=== PATIENT | female | born 1965 | race Caucasian/White ===

== ENCOUNTER → 2018-05-06 13:36 | Outpatient (REF) | payer SELFPAY | LOC: OM 13:36 | PROVIDERS: PCP Family Medicine; Visit Provider Nurse Practitioner Family | DX: Z11.1 Encounter for screening for respiratory tuberculosis (principal) ==

== ENCOUNTER 2018-05-08 14:29 | Outpatient (REF) | payer SELFPAY | END 2018-05-08 14:30 | LOC: OM 14:29 | PROVIDERS: PCP Family Medicine; Visit Provider Nurse Practitioner Family | DX: Z11.1 Encounter for screening for respiratory tuberculosis (principal) ==

== ENCOUNTER 2018-06-03 15:47 | Outpatient (REF) | payer OTHER, SELFPAY ==
--- NOTE | 2018-06-03 15:09 | PAPFT_PTH ---
PATIENT: Heide Dsouza LOC: [facility] U#:[id number] AGE/SX: 53/F ROOM: RE06/03/[address]: Lg Gamble MD : [id number] BED: DIS: 06/03/2018 SPEC #: [id number] RECD: 06/03/18 18:10 STATUS: MARLY REQ #: [id number] MARSHAL: 06/03/18 15:[address]: Lg Gamble [facility] Cytology RECD BY: Marleny Angela Tissues: 1 - CX/ENDOCX FOR PAP SMEARS Procedures: PAP THIN PREP/UVM Screening HPV DNA PROBE Comments: [id number]
== END 2018-06-03 16:07 ==
LOC: LBN 15:47
PROVIDERS: Visit Provider Family Medicine
DX: Z12.4 Encounter for screening for malignant neoplasm of cervix (principal); Z11.51 Encounter for screening for human papillomavirus (HPV)
CPT/HCPCS: 88142; 87624

== ENCOUNTER 2018-10-27 11:52 | Outpatient (CLI) | payer OTHER, SELFPAY ==
[2018-10-27 13:45] LABS: Abs Immature Grans 0.02 k/cumm (0.0-0.09); Absolute Basophil Count 0.03 k/cumm (0.0-0.2); Absolute Eosinophil Count 0.26 k/cumm (0.0-0.7); Absolute Lymphocyte Count 1.21 k/cumm (1.2-3.4); Absolute Monocyte Count 0.49 k/cumm (0.11-0.7); Absolute Neutrophil Count 4.95 k/cumm (1.2-6.7); Basophils % 0.4; Eosinophils % 3.7; HCT 45.4 % (36.0-46.0); HGB 14.8 g/dL (12.0-15.5); Immature Grans % 0.3; Lymphocytes % 17.4; Mean Corp. HGB Concentration 32.6 g/dL (32.0-36.0); Mean Corpuscular Hemoglobin 31.4 pg (27.0-33.0); Mean Corpuscular Volume 96.2 fL (80-95); Mean Platelet Volume 9.2 fL (8.0-11.0); Neutrophils % 71.2; Platelet Count 246 x1000/uL (130-400); RBC 4.72 m/cumm (4.00-5.20); RBC Distribution Width 14.5 % (11.7-14.6); White Blood Cell Count 6.96 k/cumm (4.4-10.8)
[2018-10-27 14:03] LABS: ALT 19 U/L (12-78); AST 13 U/L (15-37); Albumin 3.3 g/dL (3.4-5.0); Alkaline Phosphatase 100 U/L (46-116); Anion Gap 6.6 mmol/L (3-11); BUN 11 mg/dL (7-18); Bilirubin, Total 0.2 mg/dL (0.2-1.0); CO2 31.4 mmol/L (21.0-32.0); CREATININE 0.86 mg/dL (0.55-1.02); Calcium 8.6 mg/dL (8.5-10.1); Chloride 104 mmol/L (98-107); Glucose 99 mg/dL (70-100); Potassium 3.6 mmol/L (3.5-5.1); Sodium 142 mmol/L (136-145); Total Protein 7.5 g/dL (6.4-8.2)
== END 2018-10-27 12:12 ==
PROVIDERS: PCP Family Medicine; Visit Provider Nurse Practitioner Family
DX: C50.412 Malignant neoplasm of upper-outer quadrant of left female breast (principal); Z17.0 Estrogen receptor positive status [ER+]
CPT/HCPCS: 36415; 80053; 85025

== ENCOUNTER → 2019-09-30 01:19 | Outpatient (CLI) | payer SELFPAY ==
--- NOTE | 2019-09-30 17:23 | DI.DEXA_ITS ---
EXAM: XR DEXA BONE DENSITY W/WO CIARAN INDICATION: MALIGNANT NEOPLASM OF LT BREAST C50.912 Z17.0, ON AROMATASE INHIBITOR,? status COMPARISON: LEFT HUMERUS from 12/28/2013 RENAL COLIC WO CONTRAST from 08/19/2017 TECHNIQUE: 2D digital imaging was performed. FINDINGS: Lateral spine shows unchanged compression deformity of T11 and T12. Evaluation of the left hip shows a total T-score of -1.3 and a Z-score of -0.7. This is consistent w ith osteopenia and an increased fracture risk. Evaluation of the lumbar spine shows a total T-score of -2.8 and a Z-score of -1.8. This is consiste nt with osteoporosis and a high fracture risk. IMPRESSION: Osteoporosis in the lumbar spine.
== END ==
PROVIDERS: PCP Family Medicine; Visit Provider Nurse Practitioner Family
DX: M81.0 Age-related osteoporosis without current pathological fracture (principal); M85.88 Other specified disorders of bone density and structure, other site; C50.919 Malignant neoplasm of unspecified site of unspecified female breast; Z17.0 Estrogen receptor positive status [ER+]; Z79.899 Other long term (current) drug therapy
CPT/HCPCS: 77080

== ENCOUNTER 2021-06-01 10:27 | Emergency (ER) | payer OTHER, SELFPAY ==
--- NOTE | 2021-06-01 10:36 | ED.GENADUL_ITS ---
Discharge Plan Disposition Patient Disposition: HOME Condition: Stable Discharge Details Clinical Impression: Back pain Primary Care Provider: Azucena Ascencio ED Provider: Junaid Hinojosa Home Meds and New Rx's Prescriptions: New naproxen [Naprosyn] 500 mg tablet 500 mg PO BID PRNQty: 20 RF: 0 cyclobenzaprine 7.5 mg tablet 7.5 mg PO TID PRNQty: 10 RF: 0 Continued acetaminophen 500 mg capsule 1,000 mg PO TID PRNRF: 0 ibuprofen [Motrin IB] 200 mg tablet 600 mg PO TID RF: 0 No Action albuterol sulfate 90 mcg/actuation aerosol powdr breath activated 1 - 2 inh IH Q4H PRN (Reason: bronchospasm) Qty: 2 RF: 11 Discharge Instructions Instructions: Flank Pain (ED), Back Pain (ED) Additional Instructions: Urinalysis, laboratory values, CT did not reveal any obvious emergent process. You did respond nicely to IV Toradol and Norflex. This very well could be muscular, I am giving you a prescription for Flexeril and Naprosyn, Flexeril may cause drowsiness. Please watch for new or worsening symptoms and return to the ER for any concerns. Otherwise I recommend reaching out to your primary care provider to discuss your ongoing symptoms and need for outpatient reevaluation. Discharge Data Discharge Date/Time-TO BE ENTERED AT DEPARTURE: 06/01/21 15:29 Medical Decision Making 56-year-old female presents to the ER complaining of bilateral lower back pain left slightly worse than the right, present for the past few days, no obvious injury but does state that she could have injured herself lifting at work. Clinically this very well could be musculoskeletal but would like to obtain laboratory values, urinalysis, and CT imaging without contrast for potential renal colic. Would like to give IV Toradol and reassess. Patient is comfortable with this plan Patient reports that her discomfort is cut in half with the Toradol states that her back now feels tight. Will now give the Norflex for potential spasm Laboratory values do not reveal any obvious emergent process. No evidence of leukocytosis, renal function unremarkable, electrolytes normal, urinalysis is yellow, clear, 3-5 reds. No signs of infection. Given the hematuria, awaiting CT imaging for potential stone. CT reveals a slightly larger stone than previous with in her kidney but otherwise unremarkable Discussed laboratory values and CT findings with patient. Essentially unremarkable for obvious emergent process. Patient reports significant improvement with Toradol and now Norflex. Will treat as musculoskeletal, provide prescription for Flexeril and recommend [id number] anti- inflammatory therapy. Strict discharge and return precautions given. Will recommend she contact her primary care provider on Saturday to discuss her ER visit need for outpatient reevaluation. Patient has no additional questions or concerns and is comfortable with this plan. Patient is now able to walk without an antalgic gait Medical Records Medical records reviewed: Yes I reviewed the patient's medical records. Imaging Data Radiologic Study: Attestation: I personally reviewed and interpreted this imaging study as follows: Imaging: CT Scan Radiologist's impression: Exam(s) a CT:CT abdomen & pelvis wo Exam(s) CT ABDOMEN PELVIS WO EXAM: CT ABDOMEN PELVIS WO CLINICAL HISTORY: bilat flank pain, L>R. TECHNIQUE: Imaging Protocol: Axial computed tomography images with coronal and sagittal reformatted images were created and reviewed CONTRAST MATERIAL: Intravenous: none Oral: None COMPARISON: CT RENAL COLIC WO CONTRAST from 08/19/2017 FINDINGS: VISUALIZED LUNG BASES: No nodules nor pleural effusions evident. ABDOMEN: There is no ascites. LIVER: There are no obvious focal hepatic lesions evident of this noninfused study. GALLBLADDER/BILIARY: Gallbladder is again noted be surgically absent. CBD is not dilated. PANCREAS: No evidence of pancreatic mass nor dilatation of the pancreatic duct. SPLEEN: Spleen is not enlarged. No obvious intrasplenic lesions. ADRENALS: There are no significant adrenal masses. KIDNEYS:Right kidney unremarkable. There is an unchanged round calcification adjacent to the right ureter which is most probably a phlebolith. This is separate from the ureter. There is a 3 millimeter nonobstructive calculi in the superior pole of the left kidney, unchanged in position. This has slightly increased in size but not migrated. No other calculi in the left kidney nor in the nondilated ureter. No hydronephrosis. No solid renal masses. No calculi nor hydronephrosis.. Ureterovesical junctions are unremarkable bilaterally. No calculi in the nondistended urinary bladder. ABDOMINAL AORTA: Calcified but not enlarged LYMPH NODES: There is no retroperitoneal nor paraaortic adenopathy. ABDOMINAL WALL: Fat containing umbilical hernia, unchanged. GI: There is no evidence of bowel obstruction, free air, nor abscess. Appendix appears unremarkable PELVIS: LYMPH NODES: There is no intrapelvic nor inguinal adenopathy. GI: No evidence of appendicitis.There is sigmoid diverticuli. No obvious acute diverticulitis. URINARY BLADDER: No calculi nor obvious masses evident REPRODUCTIVE: Unremarkable. No abnormal adnexal masses. No free fluid in the pelvis. OSSEOUS: Degenerative anterolisthesis L5 upon S1 again noted. IMPRESSION: 1. There is a 3 millimeter nonobstructive calculus in the superior pole the left kidney, unchanged position. This has slightly increased in size from 2017 but has not changed position. 2. No hydronephrosis on either side. No hydroureter. No calculi within the urinary bladder. 3. No evidence of appendicitis. Sigmoid diverticuli but no evidence of acute diverticulitis. Lab Data Lab results reviewed: Yes I reviewed the patient's lab results. Labs: Laboratory Tests Range/Units 06/01/21 06/01/21 06/01/21 11:05 11:45 11:55 WBC (4.4-10.8) 10^3/uL 7.45 RBC (3.93-5.22) 10^6/uL 4.54 Hgb (11.2-15.7) g/dL 14.0 Hct (36.0-46.0) % 42.6 MCV (80-95) fL 93.8 MCH (27.0-33.0) pg 30.8 MCHC (32.0-36.0) % 32.9 RDW (11.7-14.6) % 14.0 Plt Count (130-400) 10^3/uL 310 MPV (8.0-11.0) fL 9.8 Immature Gran % 0.3 Neutrophils % 66.0 Lymphocytes % 26.3 Monocytes % 4.8 Eosinophils % 1.9 Basophils % 0.7 Nucleated RBC % % 0 Absolute Neutrophils (1.2-6.7) 10^3/uL 4.92 Absolute Lymphocytes (1.2-3.4) 10^3/uL 1.96 Absolute Monocytes (0.1-0.8) 10^3/uL 0.36 Absolute Eosinophils (0.0-0.7) 10^3/uL 0.14 Absolute Basophils (0.0-0.2) 10^3/uL 0.05 Sodium (136-145) mmol/L 142 Potassium (3.5-5.1) mmol/L 3.9 Chloride (98-107) mmol/L 104 Carbon Dioxide (21.0-32.0) mmol/L 31.7 Anion Gap (3-11) mmol/L 6.3 BUN (7-18) mg/dL 13 Creatinine (0.55-1.02) mg/dL 0.9 Estimated GFR/1.73 m2 (mL/min/1.73m2) >= 60.00 Glucose (74-106) mg/dL 102 Calcium (8.5-10.1) mg/dL 9.2 Total Bilirubin (0.2-1.0) mg/dL 0.2 AST (15-37) U/L 12 L ALT (14-59) U/L 22 Alkaline Phosphatase (46-116) U/L 98 Total Protein (6.4-8.2) g/dL 7.8 Albumin (3.4-5.0) g/dL 3.7 Urine Color (Yellow) Yellow Urine Clarity (Clear) Clear Urine pH (5-8) 5.5 Ur Specific [place] (1.005-1.025) >= 1.030 H Urine Protein (Negative) mg/dL Negative Urine Ketones (Negative) mg/dL Negative Urine Blood (Negative) Negative Urine Nitrite (Negative) Negative Urine Bilirubin (Negative) Negative Urine Urobilinogen (Up TO 0.2) EU/dL 0.2 Ur Leukocyte Esterase (Negative) Negative Urine Glucose (Negative) mg/dL Negative HPI General Mode of arrival: ambulatory . Date/Time Provider Initiated Documentation: 06/01/21 10:36 . Limitations to Documentation: no limitations . Information obtained by: patient . HPI Narrative: This is a 56-year-old female, reports past medical history of kidney stone, right-sided sciatica, presenting to the ER today for evaluation of back and flank pain that began a few days ago, no obvious trauma. Patient states that she could have pulled her back but is unsure. Reports the pain is moderate to severe, worse with movement, was initially worse on the right side but now is across the entire back. She denies any fever, chest pain, shortness of breath, anterior abdominal pain, nausea, vomiting, dysuria, hematuria, diarrhea or constipation. Pain does not radiate down her legs. She has tried cqza-rok-[id number] medication with minimal relief of her symptoms. She reports the pain as dull and aching in nature. Related Data Home Medications Medication Instructions Recorded Confirmed acetaminophen 500 mg capsule 1,000 mg PO TID PRN cap 05/14/18 06/02/21 ibuprofen 200 mg tablet 600 mg PO TID tab 05/14/18 06/02/21 cyclobenzaprine 7.5 mg PO TID PRN #10 tab 06/01/21 06/02/21 naproxen [Naprosyn] 500 mg PO BID PRN #20 tab 06/01/21 06/02/21 albuterol sulfate 90 mcg/actuation 1 - 2 inh IH Q4H PRN #2 each 06/02/21 06/02/21 breath activated powder inhaler Previous Rx's Medication Instructions Recorded cyclobenzaprine 7.5 mg PO TID PRN #10 tab 06/01/21 naproxen [Naprosyn] 500 mg PO BID PRN #20 tab 06/01/21 albuterol sulfate 90 mcg/actuation 1 - 2 inh IH Q4H PRN #2 each 06/02/21 breath activated powder inhaler Allergies Allergy/AdvReac Type Severity Reaction Status Date / Time codeine AdvReac Mild N/V Verified 06/02/21 15:08 oxycodone AdvReac Mild N/V Verified 06/02/21 15:08 Review of Systems Constitutional Constitutional: Denies fever(s) and Denies weakness Cardiovascular Cardiovascular: Denies chest pain and Denies dyspnea Respiratory Respiratory: Denies cough and Denies dyspnea Gastrointestinal Gastrointestinal: Reports abdominal pain (Bilateral flank, no anterior), Denies constipation, Denies diarrhea, Denies nausea and Denies vomiting Genitourinary Genitourinary: Denies abnormal vaginal bleeding, Denies hematuria and Denies dysuria Musculoskeletal Musculoskeletal: Reports back pain, Denies numbness, Denies stiffness and Denies tingling Integumentary/Breasts Skin/Breast: Denies rash Neurologic Neurologic: Denies numbness, Denies tingling and Denies weakness [facility] Medical History Endometriosis (09/16/14) Fracture of left humerus (09/16/14) History of left breast cancer Sciatica of right side (09/16/14) Surgical History S/P breast lumpectomy Status post cholecystectomy (09/16/14) Family History Mother Emphysema/COPD Father Heart disease Sister Neoplasm MELANOMA Brother No problems noted. Grandfather No problems noted. Grandfather No problems noted. Grandmother No problems noted. Grandmother No problems noted. Social History Smoking/Tobacco Use Status: Current every day Tobacco Type: cigarettes Smoking packs per day: 0.5 Smoking cigarettes per day: 10.0 Second Hand Exposure: Yes Smoking risk assessment performed?: Yes Alcohol Intake: current Alcohol Intake frequency: other Drug use: Never Substance use type: does not use Household members: spouse Number of Children: 2 number of grandchildren: 2 current occupation: works in kitchen at [employer] Pets and animals: Yes Pets and animals: cat(s) and dog(s) What type of physical activity do you participate in: none Do you feel safe in your relationship?: Yes Exam Const General: cooperative, healthy appearing, comfortable and no acute distress Orientation: alert and awake [facility] Head: normal to inspection, normocephalic and atraumatic Eyes General: appearance normal, both eyes and all related structures Conjunctivae: conjunctivae normal Neck Neck: normal visual inspection, trachea midline and supple Resp Effort & Inspection: normal respiratory effort and able to speak in complete sentences Auscultation: clear to auscultation bilaterally Cardio Rate: regular rate Rhythm: regular rhythm GI Inspection: normal to inspection Palpation: soft, not firm, no guarding, no pulsatile masses and nontender Back/Spine/Pelvis Back: no CVA tenderness and back tenderness (Diffuse posterior lumbar discomfort, left slightly worse than the right.) Skin General skin exam: no rashes or lesions noted Neuro General: patient alert, patient awake, moves all extremities and no focal motor deficits Cognition: normal cognition Speech: speech normal Gait: antalgic (Slightly) Sensory Exam: no sensory deficits noted Extrem General: normal to inspection and full ROM Psych Appearance: grossly normal Mental Status: mental status grossly normal
[2021-06-01 11:22] LABS: Bilirubin Negative (Negative); Blood Negative (Negative); Clarity Clear (Clear); Glucose Negative (Negative); Ketones Negative (Negative); Leukocyte Esterase Negative (Negative); Nitrite Negative (Negative); Specific Gravity >= 1.030 (1.005-1.025); Urobilinogen 0.2 EU/dL (Up TO 0.2); pH 5.5 (5-8)
--- NOTE | 2021-06-01 11:30 | DI.CT_ITS ---
Exam(s) CT ABDOMEN PELVIS WO EXAM: CT ABDOMEN PELVIS WO CLINICAL HISTORY: bilat flank pain, L>R. TECHNIQUE: Imaging Protocol: Axial computed tomography images with coronal and sagittal reformatted images were created and reviewed CONTRAST MATERIAL: Intravenous: none Oral: None COMPARISON: CT RENAL COLIC WO CONTRAST from 08/19/2017 FINDINGS: VISUALIZED LUNG BASES: No nodules nor pleural effusions evident. ABDOMEN: There is no ascites. LIVER: There are no obvious focal hepatic lesions evident of this noninfused study. GALLBLADDER/BILIARY: Gallbladder is again noted be surgically absent. CBD is not dilated. PANCREAS: No evidence of pancreatic mass nor dilatation of the pancreatic duct. SPLEEN: Spleen is not enlarged. No obvious intrasplenic lesions. ADRENALS: There are no significant adrenal masses. KIDNEYS:Right kidney unremarkable. There is an unchanged round calcification adjacent to the right u reter which is most probably a phlebolith. This is separate from the ureter. There is a 3 millimete r nonobstructive calculi in the superior pole of the left kidney, unchanged in position. This has sl ightly increased in size but not migrated. No other calculi in the left kidney nor in the nondilated ureter. No hydronephrosis. No solid renal masses. No calculi nor hydronephrosis.. Ureterovesical junctions are unremarkable bilaterally. No calculi in the nondistended urinary bladder. ABDOMINAL AORTA: Calcified but not enlarged LYMPH NODES: There is no retroperitoneal nor paraaortic adenopathy. ABDOMINAL WALL: Fat containing umbilical hernia, unchanged. GI: There is no evidence of bowel obstruction, free air, nor abscess. Appendix appears unremarkable PELVIS: LYMPH NODES: There is no intrapelvic nor inguinal adenopathy. GI: No evidence of appendicitis.There is sigmoid diverticuli. No obvious acute diverticulitis. URINARY BLADDER: No calculi nor obvious masses evident REPRODUCTIVE: Unremarkable. No abnormal adnexal masses. No free fluid in the pelvis. OSSEOUS: Degenerative anterolisthesis L5 upon S1 again noted. IMPRESSION: 1. There is a 3 millimeter nonobstructive calculus in the superior pole the left kidney, unchanged po sition. This has slightly increased in size from 2017 but has not changed position. 2. No hydronephrosis on either side. No hydroureter. No calculi within the urinary bladder. 3. No evidence of appendicitis. Sigmoid diverticuli but no evidence of acute diverticulitis. RADIATION DOSE DELIVERED: 849.94mGy.cm Total DLP DATA REPOSITORY: All CT scans at this facility are submitted to the National Radiology Data Registry (NRDR) Dose Index Registry (DIR) with the [employer] (ACR). RADIATION OPTIMIZATION: All CT scans at this facility use at least one of these dose optimization te chniques: automated exposure control; mA and/or kV adjustment per patient size (includes targeted exa ms where dose is matched to clinical indication); or iterative reconstruction.
[2021-06-01 12:07] LABS: Abs Immature Grans 0.02 10^3/uL (0.0-0.06); Absolute Basophil Count 0.05 10^3/uL (0.0-0.2); Absolute Eosinophil Count 0.14 10^3/uL (0.0-0.7); Absolute Lymphocyte Count 1.96 10^3/uL (1.2-3.4); Absolute Monocyte Count 0.36 10^3/uL (0.1-0.8); Absolute Neutrophil Count 4.92 10^3/uL (1.2-6.7); Basophils % 0.7; Eosinophils % 1.9; HCT 42.6 % (36.0-46.0); Immature Grans % 0.3; Lymphocytes % 26.3; MCH 30.8 pg (27.0-33.0); MCHC 32.9 % (32.0-36.0); MCV 93.8 fL (80-95); MPV 9.8 fL (8.0-11.0); Monocytes % 4.8; Nucleated RBC 0 %; Platelet Count 310 10^3/uL (130-400); RBC 4.54 10^6/uL (3.93-5.22); RDW-SD 48.8 fL; WBC 7.45 10^3/uL (4.4-10.8)
[2021-06-01 12:17] LABS: ALT 22 U/L (14-59); AST 12 U/L (15-37); Albumin 3.7 g/dL (3.4-5.0); Alkaline Phosphatase 98 U/L (46-116); Anion Gap 6.3 mmol/L (3-11); BUN 13 mg/dL (7-18); Bilirubin, Total 0.2 mg/dL (0.2-1.0); CO2 31.7 mmol/L (21.0-32.0); CREATININE 0.9 mg/dL (0.55-1.02); Calcium 9.2 mg/dL (8.5-10.1); Chloride 104 mmol/L (98-107); Glucose 102 mg/dL (74-106); Potassium 3.9 mmol/L (3.5-5.1); Sodium 142 mmol/L (136-145); Total Protein 7.8 g/dL (6.4-8.2)
[2021-06-01] MEDS: Ketorolac 30 MG/ML VIAL (12:30)
[2021-06-01] MEDS: Normal Saline 1,000 ML 1000 ML IV (13:39)
[2021-06-01] MEDS: Orphenadrine 60 MG/2 ML VIAL IVP (13:40)
== END 2021-06-01 15:29 | disposition home or self-care (01) ==
PROVIDERS: Emergency Provider Physician Assistant; PCP Family Medicine
DX: M54.9 Dorsalgia, unspecified (principal); R10.9 Unspecified abdominal pain
CPT/HCPCS: 80053; 96361; 96374; 96375; 99284; J2360; 74176; 81003; 85025; J1885

== ENCOUNTER 2021-06-02 19:35 | Outpatient (REF) | payer OTHER, SELFPAY ==
[2021-06-02 20:00] LABS: Calculated LDL 97 mg/dL (<100); Cholesterol 167 mg/dL (<200); HDL Cholesterol 44 mg/dL (40-60); Triglyceride 133 mg/dL (<150)
[2021-06-05 10:43] LABS: Hepatitis C Ab w Rflx HCV PCR Negative (Negative)
== END 2021-06-02 19:36 | disposition home or self-care (01) ==
LOC: NCHCN 19:35
PROVIDERS: PCP Family Medicine; Visit Provider Family Medicine
DX: Z00.00 Encounter for general adult medical examination without abnormal findings (principal); Z11.59 Encounter for screening for other viral diseases
CPT/HCPCS: 80061; 86803

== ENCOUNTER 2022-03-08 16:14 | Outpatient (REF) | payer OTHER, SELFPAY ==
[2022-03-08 15:26] LABS: Abs Immature Grans 0.07 10^3/uL (0.0-0.06); Absolute Basophil Count 0.05 10^3/uL (0.0-0.2); Absolute Eosinophil Count 0.05 10^3/uL (0.0-0.7); Absolute Lymphocyte Count 1.48 10^3/uL (1.2-3.4); Absolute Monocyte Count 0.89 10^3/uL (0.1-0.8); Absolute Neutrophil Count 10.11 10^3/uL (1.2-6.7); Basophils % 0.4; Eosinophils % 0.4; HCT 41.4 % (36.0-46.0); HGB 13.4 g/dL (11.2-15.7); Immature Grans % 0.6; Lymphocytes % 11.7; MCH 30.7 pg (27.0-33.0); MCHC 32.4 % (32.0-36.0); MCV 95 fL (80-95); MPV 9.7 fL (8.0-11.0); Neutrophils % 79.9; Platelet Count 342 10^3/uL (130-400); RBC 4.37 10^6/uL (3.93-5.22); RDW 14.1 % (11.7-14.6); RDW-SD 49.6 fL; WBC 12.65 10^3/uL (4.4-10.8)
[2022-03-08 15:52] LABS: ALT 33 U/L (14-59); AST 41 U/L (15-37); Albumin 3.6 g/dL (3.4-5.0); Alkaline Phosphatase 137 U/L (46-116); Anion Gap 9.5 mmol/L (3-11); BUN 17 mg/dL (7-18); Bilirubin, Total 0.6 mg/dL (0.2-1.0); CO2 29.5 mmol/L (21.0-32.0); Calcium 9.7 mg/dL (8.5-10.1); Chloride 101 mmol/L (98-107); Estimated GFR 57.35 (mL/min/1.73m2); Glucose 99 mg/dL (74-106); Potassium 4.8 mmol/L (3.5-5.1); Sodium 140 mmol/L (136-145); Total Protein 7.9 g/dL (6.4-8.2)
== END 2022-03-08 16:15 | disposition home or self-care (01) ==
LOC: LBN 16:14
PROVIDERS: PCP Family Medicine; Visit Provider Physician Assistant Medical
DX: R35.0 Frequency of micturition (principal)
CPT/HCPCS: 80053; 85025; 87086

== ENCOUNTER 2022-03-17 09:54 | Inpatient (IN) | payer OTHER, SELFPAY ==
[2022-03-17] VITALS (27 sets, daily range): BP systolic 113–141; BP diastolic 82–105; PULSE 67–134; RESP 3–30; TEMP 36.4–37.2; O2SAT 86–95
--- NOTE | 2022-03-17 10:15 | DI.CT_ITS ---
Exam(s) CT CHEST/ABD/PEL WO EXAM: CT CHEST/ABD/PEL WO CLINICAL HISTORY: L back, LUQ/LLQ abd pain TECHNIQUE: Imaging Protocol: Axial computed tomography images with coronal and sagittal reformatted images were created and reviewed COMPARISON: CT CT ABDOMEN PELVIS WO from 06/01/2021 FINDINGS: CHEST: Tracheobronchial tree: Patent where visualized. Pulmonary parenchyma: Multifocal somewhat nodular opacities are present throughout the lungs. There are hyperlucent areas seen in the lung apices which may reflect underlying COPD. Mediastinum and Janna: No dominant adenopathy or fluid collection. The esophagus is unremarkable. Thyroid gland: Unremarkable. Pleura: There is a small left pleural effusion. No right pleural effusion or pneumothorax is present . Heart: The heart is not dilated. Coronary artery calcifications are present. No pericardial effusion . Aorta: Thoracic aorta non-dilated. Atherosclerosis is present. Lymph nodes: No significant axillary adenopathy is present. Bones:There is an old healed right rib fracture. There is a nondisplaced acute left 4th rib fracture anterior laterally. There is also an acute fracture involving the posterior aspect of the right 9th rib. Degenerative changes are seen in the spine. There are new compression deformities of the T8 a nd T9 vertebral bodies. These vertebral bodies have a sclerotic appearance. There is loss about a q uarter of the height of the vertebral body. There is unchanged grade 1 anterolisthesis of L5 on S1. Soft tissues: There is a spiculated mass seen in the medial left breast. It measures approximately 2 cm. The patient has a history of a category 5 left breast mass in 2015. No mammograms since that e xamination are available at this institution for comparison. ABDOMEN: Liver: Normal density. No measurable mass. Gallbladder and Biliary Tract: Status post cholecystectomy. No biliary ductal dilatation. Pancreas: Normal density, no abnormal calcifications or inflammatory process. Spleen: Normal. Adrenals: No masses seen. Kidneys: Normal size, contour and axis. There is a 3 mm stone in the upper pole of the left kidney. There is sgri-[id number] dilatation of the left renal collecting system and renal pelvis without rad iopaque obstructing stone. There is infiltration in the left perinephric space. No masses seen. Abdominal Aorta: Abdominal portion non-dilated. Atherosclerosis is present. Bowel: No obstruction or bowel wall thickening. Appendix is unremarkable. There is diverticulosis in the colon but no evidence of acute diverticulitis. Peritoneal Cavity: No ascites, collection or mesenteric inflammatory response. No free air. Lymph Nodes: Within normal limits. Bones: There are areas of sclerosis in the pelvis with periosteal reaction. There is a mixed sclerot ic and lytic lesion involving the posterior aspect of the right iliac bone. Soft Tissues: Unremarkable. PELVIS: Bladder: The urinary bladder is incompletely distended. There is mild thickening of the wall of the urinary bladder likely due to underdistention. Reproductive Organs: Unremarkable as visualized. Lymph Nodes: Within normal limits. Bones: Within normal limits for the patient's age. IMPRESSION: 1. Multifocal somewhat nodular opacities in the lungs. While this may be due to an infectious/inflam matory process, metastatic disease should be considered given the findings in the abdomen and pelvis. 2. Sclerotic T8 and T9 vertebral bodies with fractures and loss of about a quarter of the height of t he vertebral bodies. Lytic and sclerotic lesion involving the right iliac bone. Sclerotic areas wit h periosteal reaction involving both iliac bones. The findings are suspicious for metastatic disease . 3. Acute bilateral rib fractures. 4. 2 cm spiculated mass in the medial left breast. The patient has a history of a left breast mass, category 5. This was in 2015. There are no available subsequent mammograms for comparison. Please correlate with patient's clinical history. Mammography should be considered for further evaluation. 5. Small left pleural effusion. 6. Left hydronephrosis with out obstructing stone. The possibility of a clot or mass causing the obs truction cannot be excluded. Left perinephric fluid. RADIATION DOSE DELIVERED: 1,349.53mGy.cm Total DLP 1,349.53mGy.cm Total DLP DATA REPOSITORY: All CT scans at this facility are submitted to the National Radiology Data Registry (NRDR) Dose Index Registry (DIR) with the [employer] (ACR). RADIATION OPTIMIZATION: All CT scans at this facility use at least one of these dose optimization te chniques: automated exposure control; mA and/or kV adjustment per patient size (includes targeted exa ms where dose is matched to clinical indication); or iterative reconstruction.
--- NOTE | 2022-03-17 10:27 | W.ED.GENAD ---
Discharge Plan Disposition Patient Disposition: HOME Condition: Stable Discharge Details Clinical Impression: Pancreatitis, Ureteral mass, Pulmonary lesion, Lytic bone lesions on xray, Hydronephrosis Primary Care Provider: Azucena Ascencio ED Provider: Daphne Antunez Home Meds and New Rx's Prescriptions: No Action acetaminophen 500 mg capsule 1,000 mg PO TID PRN ibuprofen [Motrin IB] 200 mg tablet 600 mg PO TID albuterol sulfate 90 mcg/actuation aerosol powdr breath activated 1 - 2 inh IH Q4H PRN (Reason: bronchospasm) Qty: 2 11RF naproxen [Naprosyn] 500 mg tablet 500 mg PO BID PRNQty: 20 0RF Medical Decision Making 1010 -- 57-year-old female with a history of asthma, breast cancer, bilateral oophorectomy, cholecystectomy, tobacco dependence who presents with left-sided lower back and left-sided abdominal pain with dysuria over the past 2 weeks that briefly resolved and then returned yesterday. She states she was recently diagnosed with a UTI and started on Keflex was told she had a urine culture which noted fungus. Urine culture from 03/08 noted gram-positive and likely contaminated specimen heart rate elevated to 120s to 130s on arrival. She otherwise appears comfortable and nontoxic. Her oxygen saturation is mid 90s which may be her baseline due to her asthma, likely COPD and tobacco dependence. Her lungs are clear bilaterally and she has no complaint of shortness of breath. She is afebrile. She has no CVA tenderness but pain does not appear reproducible when sitting up in bed. She has tenderness in her left upper and left lower quadrant. History and presentation does not appear consistent with PE, ACS or dissection. Consider kidney stone, pancreatitis, diverticulitis, UTI, pyelonephritis, muscle strain, shingles, pneumonia. Will place an IV, bolus IV fluids, screening labs, urinalysis, CT chest abdomen pelvis with oral contrast and give IV Tylenol and IV Toradol and IV Zofran and reassess. 1300 --labs and imaging reviewed. Normal white blood cell count. Normal electrolytes. Creatinine 1.4 which is increased from recent baseline. Lipase 480. Urinalysis negative. CT chest notes: IMPRESSION: 1. Left breast lesions. Recommend bilateral diagnostic mammogram and breast ultrasound 2. Severe chronic lung disease 3. Multifocal bilateral diffuse nodular infiltrates, metastatic disease to be excluded 4. Small left pleural effusion 5. Left lateral 4th rib fracture 6. T8 and T9 vertebral body sclerosis, possible metastatic disease. CT abd/pelvis notes: IMPRESSION: 1. Severe left hydronephrosis. No obstructing stones seen however vague increased density in the left mid and proximal ureter, possible clot or mass. 2. Marked left perinephric fluid collection 3. 3.5 cm right iliacus lytic lesion with suspected pathologic fracture, new in the interval, felt compatible with metastatic disease Review of records note that patient had a mammogram in November 2020 with postsurgical changes in the left breast but no no evidence of malignancy. There has been no previous CT chest imaging in this facility. Case discussed with Dr. Morales who recommends MRCP at some point to rule out potential to pancreas metastases. Attempted to reach Dr. Escalera but no response. There is concern with her severe hydronephrosis that she may need stent placement. Patient remains tachycardic ~ 110s, although her pain is controlled. Will admit for further IV fluid hydration and trending of her lipase, renal ultrasound, MRCP and plan for referral for PET scan. Case discussed with hospitalist who accepts patient for discussion. Medical Records Medical records reviewed: Yes I reviewed the patient's medical records. Imaging Data Radiologic Study: Radiologist's impression: CT Chest Without Contrast; Diagnostic Exam date and time: 03/17/2022 12:07 PM Age: 57 years old Clinical indication: Other: L back, luq/llq abd pain; Additional info: R/O kidney stone, diverti, pyelo, pneumonia TECHNIQUE: Imaging protocol: Diagnostic computed tomography of the chest without contrast. COMPARISON: CT ABDOMEN PELVIS WO 06/01/2021 1:24 PM FINDINGS: Lungs: Severe chronic lung disease. Multi focal bilateral diffuse nodular infiltrates, although may be related to pneumonia or inflammatory process, metastatic disease cannot be excluded Pleural spaces: Small left pleural effusion Heart: Moderate coronary artery atherosclerotic calcifications Lymph nodes: Multiple nonspecific subcentimeter mediastinal lymph nodes Vasculature: Unremarkable. No aortic aneurysm.? Bones/joints: Left lateral 4th rib fracture, indeterminate in age. T8 and T9 sclerotic vertebral bodies with loss of vertebral body height. Metastatic disease to be excluded with pathologic fractures. Chronic compression fractures T10, T11 and T12 Soft tissues: 1.6 cm spiculated appearing mass in the upper inner left breast and a 1.5 cm rounded nodule in the outer left breast. Recommend bilateral diagnostic mammogram and ultrasound left breast IMPRESSION: 1. Left breast lesions. Recommend bilateral diagnostic mammogram and breast ultrasound 2. Severe chronic lung disease 3. Multifocal bilateral diffuse nodular infiltrates, metastatic disease to be excluded 4. Small left pleural effusion 5. Left lateral 4th rib fracture 6. T8 and T9 vertebral body sclerosis, possible metastatic disease. CT Abdomen And Pelvis Without Contrast Exam date and time: 03/17/2022 12:07 PM Age: 57 years old Clinical indication: Other: L back, luq/llq abd pain; Additional info: R/O kidney stone, diverti, pyelo, pneumonia TECHNIQUE: Imaging protocol: Computed tomography of the abdomen and pelvis without contrast. COMPARISON: CT ABDOMEN PELVIS WO 06/01/2021 1:24 PM FINDINGS: Lungs: See above Liver: The liver is diffusely low in attenuation, compatible with fatty infiltration. Gallbladder and bile ducts: Unremarkable. No calcified stones. No ductal dilation. Pancreas: Unremarkable. No ductal dilation. Spleen: Unremarkable. No splenomegaly. Adrenal glands: Normal. No mass. Kidneys and ureters: Vague increased density in the proximal and mid left ureter. No definite stones seen. Mass or clot cannot be excluded. Severe left hydronephrosis, new in the interval. Significant left perinephric fluid and stranding . 3 mm left upper pole stone unchanged Stomach and bowel: Mild scattered diverticuli are present within the sigmoid colon. No evidence of diverticulitis. Appendix: No evidence of appendicitis. Intraperitoneal space: Unremarkable. No free air. No significant fluid collection. Vasculature: Unremarkable. No abdominal aortic aneurysm. Lymph nodes: Unremarkable. No enlarged lymph nodes. Urinary bladder: Urinary bladder incompletely distended no stones identified Reproductive: Unremarkable as visualized. Bones/joints: Grade 1 anterolisthesis L5-S1. Left L3 transverse process fracture, suspected to be subacute or chronic in nature. 3.5 cm lytic lesion right iliacus with extension through the right cortex posteriorly, felt compatible with pathologic fracture. Vague L2 vertebral body sclerosis, metastatic disease to be excluded Soft tissues: Unremarkable. IMPRESSION: 1. Severe left hydronephrosis. No obstructing stones seen however vague increased density in the left mid and proximal ureter, possible clot or mass. 2. Marked left perinephric fluid collection 3. 3.5 cm right iliacus lytic lesion with suspected pathologic fracture, new in the interval, felt compatible with metastatic disease Lab Data Lab results reviewed: Yes I reviewed the patient's lab results. Labs: Laboratory Tests Range/Units 03/17/22 03/17/22 03/17/22 10:30 10:37 10:37 WBC (4.4-10.8) 10^3/uL 8.48 RBC (3.93-5.22) 10^6/uL 4.42 Hgb (11.2-15.7) g/dL 13.2 Hct (36.0-46.0) % 41.7 MCV (80-95) fL 94 MCH (27.0-33.0) pg 29.9 MCHC (32.0-36.0) % 31.7 L RDW (11.7-14.6) % 14.1 Plt Count (130-400) 10^3/uL 420 H MPV (8.0-11.0) fL 8.6 Immature Gran % 1.2 Neutrophils % 75.1 Lymphocytes % 16.6 Monocytes % 5.2 Eosinophils % 1.4 Basophils % 0.5 Nucleated RBC % (0.0-0.3) % 0.0 Absolute Neutrophils (1.2-6.7) 10^3/uL 6.37 Absolute Lymphocytes (1.2-3.4) 10^3/uL 1.41 Absolute Monocytes (0.1-0.8) 10^3/uL 0.44 Absolute Eosinophils (0.0-0.7) 10^3/uL 0.12 Absolute Basophils (0.0-0.2) 10^3/uL 0.04 Sodium (136-145) mmol/L 144 Potassium (3.5-5.1) mmol/L 3.8 Chloride (98-107) mmol/L 105 Carbon Dioxide (21.0-32.0) mmol/L 29.2 Anion Gap (3-11) mmol/L 9.8 BUN (7-18) mg/dL 14 Creatinine (0.55-1.02) mg/dL 1.4 H Estimated GFR/1.73 m2 (mL/min/1.73m2) 38.76 Glucose (74-106) mg/dL 84 Calcium (8.5-10.1) mg/dL 9.4 Total Bilirubin (0.2-1.0) mg/dL 0.3 AST (15-37) U/L 40 H ALT (14-59) U/L 33 Alkaline Phosphatase (46-116) U/L 135 H Total Protein (6.4-8.2) g/dL 8.0 Albumin (3.4-5.0) g/dL 2.9 L Lipase (73-393) U/L 480 H Urine Color (Yellow) Yellow Urine Clarity (Clear) Clear Urine pH (5-8) 6.0 Ur Specific Adkins (1.005-1.025) 1.010 Urine Protein (Negative) mg/dL Negative Urine Ketones (Negative) mg/dL Negative Urine Blood (Negative) Negative Urine Nitrite (Negative) Negative Urine Bilirubin (Negative) Negative Urine Urobilinogen (Up TO 0.2) EU/dL 0.2 Ur Leukocyte Esterase (Negative) Negative Urine Glucose (Negative) mg/dL Negative HPI General Mode of arrival: ambulatory. Date/Time Provider Initiated Documentation: 03/17/22 09:55. Limitations to Documentation: no limitations. Information obtained by: patient. HPI Narrative: Patient is a 57-year-old female with a history of breast cancer, asthma, bilateral oophorectomy, cholecystectomy presents with 2weeks left back and left-sided abdominal pain. Patient states she was seen at urgent care recently and started on antibiotics for possible urinary tract infection and was told her urine culture grew fungus. She states her urinary symptoms improved until yesterday when she developed dysuria. She states she also had some improvement in her back and abdominal pain until yesterday. Patient describes the pain is mostly sharp but occasionally dull and crampy. She states the pain is currently 8/10 but is 10/10 at its worst. She has taken Tylenol and ibuprofen for pain without significant relief. He states the pain is worse with movement and when getting up from a sitting position. She admits to nausea but denies any fever, vomiting, diarrhea, hematuria or urinary frequency. She states she is not sexually active. She denies any known recent exposure to COVID and denies chest pain, shortness of breath. Related Data Home Medications Medication Instructions Recorded Confirmed acetaminophen 500 mg capsule 1,000 mg PO TID PRN 05/14/18 03/17/22 ibuprofen 200 mg tablet (Motrin IB) 600 mg PO TID 05/14/18 03/17/22 naproxen 500 mg tablet (Naprosyn) 500 mg PO BID PRN #20 tabs 06/01/21 03/17/22 albuterol sulfate 90 mcg/actuation 1 - 2 inh inhalation Q4H PRN 09/27/21 03/17/22 breath activated powder inhaler bronchospasm #2 ea Previous Rx's Medication Instructions Recorded naproxen 500 mg tablet (Naprosyn) 500 mg PO BID PRN #20 tabs 06/01/21 albuterol sulfate 90 mcg/actuation 1 - 2 inh inhalation Q4H PRN 09/27/21 breath activated powder inhaler bronchospasm #2 ea Allergies Allergy/AdvReac Type Severity Reaction Status Date / Time codeine AdvReac Mild N/V Verified 03/17/22 10:06 oxycodone AdvReac Mild N/V Verified 03/17/22 10:06 General Stated Complaint: Urinary ADAM: 3 Review of Systems All systems reviewed & are unremarkable except as noted in HPI and below Constitutional Constitutional: Denies chills, Denies excessive sweating, Denies fatigue, Denies fever(s), Denies weakness and Denies weight loss Eyes Eyes: Reports system reviewed and no additional complaints, except as documented and Denies blurry vision ENT Ears, Nose, Mouth, and Throat: Denies vertigo, Denies dizziness, Denies otalgia, Denies nasal congestion, Denies sore throat and Denies throat swelling Cardiovascular Cardiovascular: Denies chest pain, Denies syncope, Denies rapid heart rate and Denies dyspnea Respiratory Respiratory: Denies chest congestion, Denies cough, Denies pain on inspiration and Denies dyspnea Gastrointestinal Gastrointestinal: Reports abdominal pain, Denies diarrhea, Reports nausea and Denies vomiting Genitourinary Genitourinary: Denies hematuria, Reports dysuria and Denies flank pain Musculoskeletal Musculoskeletal: Denies back pain and Denies joint swelling Integumentary/Breasts Skin/Breast: Denies lesions and Denies rash Neurologic Neurologic: Denies behavioral changes, Denies confusion, Denies vertigo, Denies dizziness, Denies syncope, Denies localized weakness and Denies weakness Psychiatric Psychiatric: Denies behavioral changes, Denies confusion and Denies depression Endocrine Endocrine: Denies excessive sweating and Denies fatigue Hematologic/Lymphatic Hematologic/Lymphatic: Denies easy bruising and Denies lymphadenopathy Allergic/Immunologic Allergic/Immunologic: Denies throat swelling PFSH All Active Problems (Updated 03/17/22 @ 15:04 by Daphne Antunez DO) Pulmonary lesion (Acute) Lytic bone lesions on xray (Acute) Hydronephrosis (Acute) Pancreatitis (Chronic) Ureteral mass (Acute) SARS-CoV-2 positive (Acute) Back pain (Acute) Urolithiasis (Chronic) 3mm stable between 2016 and 2020 Medical History Endometriosis (09/16/14) Fracture of left humerus (09/16/14) History of left breast cancer Sciatica of right side (09/16/14) Surgical History S/P breast lumpectomy Status post cholecystectomy (09/16/14) Family History Mother Emphysema/COPD Father Heart disease Sister Neoplasm MELANOMA Brother No problems noted. Grandfather No problems noted. Grandfather No problems noted. Grandmother No problems noted. Grandmother No problems noted. Social History Smoking/Tobacco Use Status: Current every day Tobacco Type: cigarettes Smoking packs per day: 0.5 Smoking cigarettes per day: 10.0 Second Hand Exposure: Yes Smoking risk assessment performed?: Yes Alcohol Intake: current Alcohol Intake frequency: other Drug use: Never Substance use type: does not use Household members: spouse Number of Children: 2 number of grandchildren: 2 current occupation: works in kitchen at [employer] Pets and animals: Yes Pets and animals: cat(s) and dog(s) What type of physical activity do you participate in: none Do you feel safe at home: Yes Do you feel safe in your relationship?: Yes Exam Const General: cooperative and no acute distress Orientation: alert, awake and oriented x3 HENMT Head: normal to inspection Ears: hearing grossly normal bilaterally, external ears normal and TM's normal bilaterally General nose exam: external nose normal Face and sinus: normal facial exam Mouth: oral mucosae normal Teeth and gingiva: dentition normal Throat: posterior oropharynx normal Eyes General: appearance normal, both eyes and all related structures Eyelids: eyelids normal Pupils: PERRL EOM: EOM intact bilaterally Neck Neck: normal visual inspection Lymphatic: no lymphadenopathy noted Chest Chest: normal inspection of the chest Resp Effort & Inspection: normal respiratory effort and able to speak in complete sentences Auscultation: clear to auscultation bilaterally Cardio Rate: regular rate Rhythm: regular rhythm GI Inspection: normal to inspection Palpation: soft, not firm, no guarding, no hepatosplenomegaly, no masses and tender in the LLQ and in the LUQ Auscultation: hypoactive bowel sounds Back/Spine/Pelvis Back: no CVA tenderness Skin General skin exam: no rashes or lesions noted Neuro General: patient alert and patient awake Cognition: normal cognition Speech: speech normal Gait: normal gait Motor: muscle tone normal throughout Sensory Exam: no sensory deficits noted Extrem General: normal to inspection, full ROM and capillary refill normal Psych Appearance: grossly normal Mental Status: mental status grossly normal Speech and Movement: speech and movement normal Affect: normal affect Thought Process: normal Course Vital Signs Vital signs: Vital Signs Temperature 97.9 F 03/17/22 09:57 Pulse 134 H 03/17/22 09:57 Respiratory Rate 16 03/17/22 09:57 Blood Pressure 128/101 H 03/17/22 09:57 Pulse Oximetry 95 03/17/22 09:57 Temperature 97.9 F 03/17/22 09:57 Temperature Source Temporal Artery Scan 03/17/22 09:57 Pulse 118 H 03/17/22 10:10 Pulse 129 H 03/17/22 10:10 Respiratory Rate 29 H 03/17/22 10:10 Respiratory Effort 03/17/22 10:02 Blood Pressure 141/97 H 03/17/22 10:10 Blood Pressure Mean 107 03/17/22 10:10 Blood Pressure Position Supine 03/17/22 09:57 Pulse Oximetry 91 L 03/17/22 10:10 Oxygen Delivery Method Room Air 03/17/22 09:57 Oxygen Flow Rate 0 03/17/22 09:57 Pain Level 8 03/17/22 09:57
[2022-03-17 10:37] LABS: Bilirubin Negative (Negative); Blood Negative (Negative); Clarity Clear (Clear); Glucose Negative (Negative); Ketones Negative (Negative); Leukocyte Esterase Negative (Negative); Nitrite Negative (Negative); Urobilinogen 0.2 EU/dL (Up TO 0.2)
[2022-03-17 10:42] LABS: Absolute Basophil Count 0.04 10^3/uL (0.0-0.2); Absolute Eosinophil Count 0.12 10^3/uL (0.0-0.7); Absolute Lymphocyte Count 1.41 10^3/uL (1.2-3.4); Absolute Monocyte Count 0.44 10^3/uL (0.1-0.8); Absolute Neutrophil Count 6.37 10^3/uL (1.2-6.7); Basophils % 0.5; Eosinophils % 1.4; HCT 41.7 % (36.0-46.0); HGB 13.2 g/dL (11.2-15.7); Immature Grans % 1.2; Lymphocytes % 16.6; MCH 29.9 pg (27.0-33.0); MCHC 31.7 % (32.0-36.0); MCV 94 fL (80-95); MPV 8.6 fL (8.0-11.0); Monocytes % 5.2; Neutrophils % 75.1; Platelet Count 420 10^3/uL (130-400); RBC 4.42 10^6/uL (3.93-5.22); RDW 14.1 % (11.7-14.6); RDW-SD 49.1 fL; WBC 8.48 10^3/uL (4.4-10.8)
[2022-03-17] MEDS: Ketorolac 30 MG/ML VIAL IVP (10:52)
[2022-03-17] MEDS: ACETAMINOPHEN 1,000 MG/100 ML BTL 400 MG IVPB (10:52)
[2022-03-17] MEDS: Ondansetron 4 MG/2 ML VIAL IVP (10:52)
[2022-03-17] MEDS: Normal Saline 1,000 ML 1000 ML IV (10:53)
[2022-03-17 11:02] LABS: ALT 33 U/L (14-59); AST 40 U/L (15-37); Albumin 2.9 g/dL (3.4-5.0); Alkaline Phosphatase 135 U/L (46-116); Anion Gap 9.8 mmol/L (3-11); BUN 14 mg/dL (7-18); Bilirubin, Total 0.3 mg/dL (0.2-1.0); CO2 29.2 mmol/L (21.0-32.0); CREATININE 1.4 mg/dL (0.55-1.02); Calcium 9.4 mg/dL (8.5-10.1); Chloride 105 mmol/L (98-107); Estimated GFR 38.76 (mL/min/1.73m2); Glucose 84 mg/dL (74-106); Lipase 480 U/L (73-393); Potassium 3.8 mmol/L (3.5-5.1); Sodium 144 mmol/L (136-145)
[2022-03-17] MEDS: Breeza Beverage 473 ML BTL PO ×2 (12:02→12:08)
--- NOTE | 2022-03-17 12:59 | DI.VRAD_ITS ---
PROCEDURE INFORMATION: Exam: CT Chest Without Contrast; Diagnostic Exam date and time: 03/17/2022 12:07 PM Age: 57 years old Clinical indication: Other: L back, luq/llq abd pain; Additional info: R/O kidney stone, diverti, pyelo, pneumonia TECHNIQUE: Imaging protocol: Diagnostic computed tomography of the chest without contrast. COMPARISON: CT ABDOMEN PELVIS WO 06/01/2021 1:24 PM FINDINGS: Lungs: Severe chronic lung disease. Multi focal bilateral diffuse nodular infiltrates, although may be related to pneumonia or inflammatory process, metastatic disease cannot be excluded Pleural spaces: Small left pleural effusion Heart: Moderate coronary artery atherosclerotic calcifications Lymph nodes: Multiple nonspecific subcentimeter mediastinal lymph nodes Vasculature: Unremarkable. No aortic aneurysm. Bones/joints: Left lateral 4th rib fracture, indeterminate in age. T8 and T9 sclerotic vertebral bodies with loss of vertebral body height. Metastatic disease to be excluded with pathologic fractures. Chronic compression fractures T10, T11 and T12 Soft tissues: 1.6 cm spiculated appearing mass in the upper inner left breast and a 1.5 cm rounded nodule in the outer left breast. Recommend bilateral diagnostic mammogram and ultrasound left breast IMPRESSION: 1. Left breast lesions. Recommend bilateral diagnostic mammogram and breast ultrasound 2. Severe chronic lung disease 3. Multifocal bilateral diffuse nodular infiltrates, metastatic disease to be excluded 4. Small left pleural effusion 5. Left lateral 4th rib fracture 6. T8 and T9 vertebral body sclerosis, possible metastatic disease. PROCEDURE INFORMATION: Exam: CT Abdomen And Pelvis Without Contrast Exam date and time: 03/17/2022 12:07 PM Age: 57 years old Clinical indication: Other: L back, luq/llq abd pain; Additional info: R/O kidney stone, diverti, pyelo, pneumonia TECHNIQUE: Imaging protocol: Computed tomography of the abdomen and pelvis without contrast. COMPARISON: CT ABDOMEN PELVIS WO 06/01/2021 1:24 PM FINDINGS: Lungs: See above Liver: The liver is diffusely low in attenuation, compatible with fatty infiltration. Gallbladder and bile ducts: Unremarkable. No calcified stones. No ductal dilation. Pancreas: Unremarkable. No ductal dilation. Spleen: Unremarkable. No splenomegaly. Adrenal glands: Normal. No mass. Kidneys and ureters: Vague increased density in the proximal and mid left ureter. No definite stones seen. Mass or clot cannot be excluded. Severe left hydronephrosis, new in the interval. Significant left perinephric fluid and stranding . 3 mm left upper pole stone unchanged Stomach and bowel: Mild scattered diverticuli are present within the sigmoid colon. No evidence of diverticulitis. Appendix: No evidence of appendicitis. Intraperitoneal space: Unremarkable. No free air. No significant fluid collection. Vasculature: Unremarkable. No abdominal aortic aneurysm. Lymph nodes: Unremarkable. No enlarged lymph nodes. Urinary bladder: Urinary bladder incompletely distended no stones identified Reproductive: Unremarkable as visualized. Bones/joints: Grade 1 anterolisthesis L5-S1. Left L3 transverse process fracture, suspected to be subacute or chronic in nature. 3.5 cm lytic lesion right iliacus with extension through the right cortex posteriorly, felt compatible with pathologic fracture. Vague L2 vertebral body sclerosis, metastatic disease to be excluded Soft tissues: Unremarkable. IMPRESSION: 1. Severe left hydronephrosis. No obstructing stones seen however vague increased density in the left mid and proximal ureter, possible clot or mass. 2. Marked left perinephric fluid collection 3. 3.5 cm right iliacus lytic lesion with suspected pathologic fracture, new in the interval, felt compatible with metastatic disease Dictated and Authenticated by: Bonnie Orr MD. Ordering:SOLOMON Serna MD
[2022-03-17] MEDS: Normal Saline 1,000 ML 125 ML IV (15:03)
[2022-03-17 15:47] LABS: Source Nasal/Nares
[2022-03-17 16:53] LABS: COVID-19 PCR Negative (Negative)
[2022-03-17] MEDS: Lactated Ringers 1,000 ML 100 ML IV (17:42)
--- NOTE | 2022-03-17 18:02 | W.PM.HP.N ---
Date of service: 03/17/22 Time of Service: 18:02 Assessment and Plan Assessment and plan (1) Pulmonary lesion: Status: Acute Assessment and plan: CT chest shows multifocal bilateral diffuse nodular infiltrates that appear to be metastatic. No fever, elevated WBC count or clinical symptoms to suggest PNA Given other findings, concerning for metastatic breast cancer. (2) Lytic bone lesions on xray: Status: Acute Assessment and plan: Likely metastic disease; breast is the most likely primary. An outpt PET scan and oncology referral will be made. No complaint of pain associated with vertebral, iliac or rib lytic lesion findings. (3) History of left breast cancer: Assessment and plan: Current findings likely indicate metastatic breast cancer. (4) Hydronephrosis: Status: Acute Assessment and plan: No obstructing nephrolithiasis noted on CT. CT does show a left mid and proximal ureteral density described as a possible clot or mass. Urology consulted. Evaluate for possible ureteral stent. Creatinine is elevated at 1.4; d/t obstruction and/or volume depletion. (5) Pancreatitis: Status: Chronic Assessment and plan: Mild lipase elevation. No ductal dilation noted on CT. Pt describes having an appetite. No appreciable LUQ pain currently. Will allow a diet and monitor. Consider an MRCP. Pt doesn't have a gallbladder. (6) SARS-CoV-2 positive: Status: Acute (7) COPD (chronic obstructive pulmonary disease): Status: Ruled-out Assessment and plan: Severe chronic lung disease described on CT. Currently no exacerbation. Will schedule Duonebs and prn albuterol; O2 saturations primarily 91. Monitor. (8) Discharge planning issues: Status: Acute Assessment and plan: Will need an oncology w/u plan, including a PET scan. (9) SUNNY (acute kidney injury): Status: Acute Assessment and plan: Etiology likely obstruction of L ureter as well as dehydration. IV hydration. History of Present Illness History of Present Illness Chief Complaint: Left-sided abdominal pain Narrative: This is a 57 yo female with a h/o breast cancer, asthma, bilateral oophorectomy, cholecystectomy, recent SARS-CoV-2 infection. She presented with appx 2 weeks of left-sided abd pain / back pain. Dxd with possible UTI at urgent care recently and given antibiotic. Culture grew gram + mixed kike. She endorsed improvement in her pain but then worsened the day before this presentation. Pain described as sharp but at times more dull and crampy. Denies constipation. Pain rated as 8/10 in the ED. Ibuprofen has helped marginally for the pain. Going from sitting to standing worsens the pain. + nausea, no emesis. No F/C/diarrhea. No hematuria, urgency, frequency. Findings in the ED: HR in the 120-130's. O2 saturation on RA in the 90-mid 90's range. + LUQ and LLQ tenderness. WBC count normal. Lipase mildly elevated at 480. UA neg. Creatinine 1.4 (normal at baseline). CT chest: Left breast lesions.. Multifocal bilateral diffuse nodular infiltrates, cannot exclude metastatic disease. Small left pleural effusion. Left lateral 4th rib fracture. T8 and T9 vertebral body sclerosis; possibly metastatic disease. CT abd/pelvis: Severe left hydronephrosis. No obstructing stones but a vague increased density in the left mid and proximal ureter could be a clot or mass. Marked left perinephric fluid collection. 3.5 cm right iliac lytic lesion with suspected pathologic fracture. Mammogram in November 2020: postusurgical changes of left breast (following a previous lumpectomy). Review of Systems All systems reviewed & are unremarkable except as noted in HPI and below PFSH All Active Problems (Updated 03/18/22 @ 06:46 by Keyon Andino MD) SUNNY (acute kidney injury) (Acute) Discharge planning issues (Acute) Pulmonary lesion (Acute) Lytic bone lesions on xray (Acute) Hydronephrosis (Acute) Pancreatitis (Chronic) Ureteral mass (Acute) SARS-CoV-2 positive (Acute) Back pain (Acute) Urolithiasis (Chronic) 3mm stable between 2016 and 2020 Medical History Endometriosis (09/16/14) Fracture of left humerus (09/16/14) History of left breast cancer Sciatica of right side (09/16/14) Surgical History S/P breast lumpectomy Status post cholecystectomy (09/16/14) Family History Mother Emphysema/COPD Father Heart disease Sister Neoplasm MELANOMA Brother No problems noted. Grandfather No problems noted. Grandfather No problems noted. Grandmother No problems noted. Grandmother No problems noted. Social History Smoking/Tobacco Use Status: Current every day Tobacco Type: cigarettes Smoking packs per day: 0.5 Smoking cigarettes per day: 10.0 Second Hand Exposure: Yes Smoking risk assessment performed?: Yes Alcohol Intake: current Alcohol Intake frequency: other Drug use: Never Substance use type: does not use Household members: spouse Number of Children: 2 number of grandchildren: 2 current occupation: works in kitchen at [employer] Pets and animals: Yes Pets and animals: cat(s) and dog(s) What type of physical activity do you participate in: none Do you feel safe at home: Yes Do you feel safe in your relationship?: Yes Meds Allergies and Home Medications Allergies Allergy/AdvReac Type Severity Reaction Status Date / Time codeine AdvReac Mild N/V Verified 03/17/22 10:06 oxycodone AdvReac Mild N/V Verified 03/17/22 10:06 Home Medications Medication Instructions Recorded Confirmed Type acetaminophen 500 mg capsule 1,000 mg PO TID PRN 05/14/18 03/17/22 History ibuprofen 200 mg tablet (Motrin IB) 600 mg PO TID 05/14/18 03/17/22 History naproxen 500 mg tablet (Naprosyn) 500 mg PO BID PRN #20 tabs 06/01/21 03/17/22 Rx albuterol sulfate 90 mcg/actuation 1 - 2 inh inhalation Q4H PRN 09/27/21 03/17/22 Rx breath activated powder inhaler bronchospasm #2 ea Exam Const General: cooperative and no acute distress Nutritional Appearance: obese Orientation: alert and oriented x3 Eyes General: appearance normal, both eyes and all related structures Sclera: sclerae normal Resp Effort & Inspection: normal respiratory effort Auscultation: clear to auscultation bilaterally and diminished lung sounds Cardio Rate: tachycardic Rhythm: regular rhythm Heart Sounds: S1 normal and S2 normal GI Inspection: obesity Palpation: soft and tender (L mid abd) Auscultation: hypoactive bowel sounds Skin General skin exam: no rashes or lesions noted Neuro General: no focal motor deficits Cranial Nerves: facial strength normal Cognition: normal cognition Speech: speech normal Extrem General: no pedal edema and no calf tenderness Psych Appearance: grossly normal Mental Status: mental status grossly normal Speech and Movement: speech and movement normal Affect: normal affect Results Labs Result diagrams: 03/17/22 10:37 03/17/22 10:37 Labs: Laboratory Results - last 24 hr 03/17/22 03/17/22 03/17/22 10:30 10:37 10:37 WBC 8.48 RBC 4.42 Hgb 13.2 Hct 41.7 MCV 94 MCH 29.9 MCHC 31.7 L RDW 14.1 Plt Count 420 H MPV 8.6 Immature Gran % 1.2 Neutrophils % 75.1 Lymphocytes % 16.6 Monocytes % 5.2 Eosinophils % 1.4 Basophils % 0.5 Nucleated RBC % 0.0 Absolute Neutrophils 6.37 Absolute Lymphocytes 1.41 Absolute Monocytes 0.44 Absolute Eosinophils 0.12 Absolute Basophils 0.04 Sodium 144 Potassium 3.8 Chloride 105 Carbon Dioxide 29.2 Anion Gap 9.8 BUN 14 Creatinine 1.4 H Estimated GFR/1.73 m2 38.76 Glucose 84 Calcium 9.4 Total Bilirubin 0.3 AST 40 H ALT 33 Alkaline Phosphatase 135 H Total Protein 8.0 Albumin 2.9 L Lipase 480 H Urine Color Yellow Urine Clarity Clear Urine pH 6.0 Ur Specific [place] 1.010 Urine Protein Negative Urine Ketones Negative Urine Blood Negative Urine Nitrite Negative Urine Bilirubin Negative Urine Urobilinogen 0.2 Ur Leukocyte Esterase Negative Urine Glucose Negative COVID-19 Source SARS-CoV-2 (PCR) 03/17/22 15:40 WBC RBC Hgb Hct MCV MCH MCHC RDW Plt Count MPV Immature Gran % Neutrophils % Lymphocytes % Monocytes % Eosinophils % Basophils % Nucleated RBC % Absolute Neutrophils Absolute Lymphocytes Absolute Monocytes Absolute Eosinophils Absolute Basophils Sodium Potassium Chloride Carbon Dioxide Anion Gap BUN Creatinine Estimated GFR/1.73 m2 Glucose Calcium Total Bilirubin AST ALT Alkaline Phosphatase Total Protein Albumin Lipase Urine Color Urine Clarity Urine pH Ur Specific [place] Urine Protein Urine Ketones Urine Blood Urine Nitrite Urine Bilirubin Urine Urobilinogen Ur Leukocyte Esterase Urine Glucose COVID-19 Source Nasal/Nares SARS-CoV-2 (PCR) Negative Last Vital Signs Temp 36.6 C 03/17/22 16:26 Pulse 112 H 03/17/22 16:26 Resp 18 03/17/22 16:26 BP 125/93 H 03/17/22 16:26 Pulse Ox 91 L 03/17/22 16:26
[2022-03-17] MEDS: Heparin 5,000 UNITS/ML VIAL 5000 UNITS SC (18:12)
[2022-03-17] MEDS: Normal Saline Flush 10 ML SYR IVP (18:31)
[2022-03-17] MEDS: Ketorolac 15 MG/ML VIAL IVP (18:31)
[2022-03-17] MEDS: Albuterol/Ipratropium 3 ML UPD VIAL UPD (19:42)
[2022-03-18] VITALS (7 sets, daily range): BP systolic 111–127; BP diastolic 77–84; PULSE 112–124; RESP 4–18; TEMP 36.5–36.6; O2SAT 90–95
[2022-03-18] MEDS: Heparin 5,000 UNITS/ML VIAL 5000 UNITS SC ×3 (02:29→17:43)
[2022-03-18] MEDS: Lactated Ringers 1,000 ML 100 ML IV (03:20)
[2022-03-18] MEDS: Ketorolac 15 MG/ML VIAL IVP ×4 (05:46→23:49)
[2022-03-18] MEDS: Normal Saline Flush 10 ML SYR IVP ×3 (05:46→17:44)
[2022-03-18] MEDS: Albuterol/Ipratropium 3 ML UPD VIAL UPD ×3 (07:27→19:39)
[2022-03-18 07:29] LABS: ALT 32 U/L (14-59); AST 35 U/L (15-37); Albumin 2.5 g/dL (3.4-5.0); Alkaline Phosphatase 120 U/L (46-116); Anion Gap 6.7 mmol/L (3-11); BUN 13 mg/dL (7-18); Bilirubin, Total 0.2 mg/dL (0.2-1.0); CO2 29.3 mmol/L (21.0-32.0); CREATININE 1.3 mg/dL (0.55-1.02); Calcium 8.9 mg/dL (8.5-10.1); Chloride 109 mmol/L (98-107); Estimated GFR 42.22 (mL/min/1.73m2); Glucose 89 mg/dL (74-106); Magnesium 1.8 mg/dL (1.8-2.4); Potassium 4.1 mmol/L (3.5-5.1); Sodium 145 mmol/L (136-145); Total Protein 6.7 g/dL (6.4-8.2)
--- NOTE | 2022-03-18 10:53 | W.PM.PROGNOT ---
Date of Service Date of service: 03/18/22 Time of Service: 10:53 Assessment and Plan Assessment and plan (1) Pulmonary lesion: Status: Acute Assessment and plan: CT chest shows multifocal bilateral diffuse nodular infiltrates that appear to be metastatic. No fever, elevated WBC count or clinical symptoms to suggest PNA Given other findings, concerning for metastatic breast cancer. (2) Lytic bone lesions on xray: Status: Acute Assessment and plan: Likely metastic disease; breast is the most likely primary. An outpt PET scan and oncology referral will be made. No complaint of pain associated with vertebral, iliac or rib lytic lesion findings. Calcium normal. (3) History of left breast cancer: Assessment and plan: Current findings likely indicate metastatic breast cancer. (4) Hydronephrosis: Status: Acute Assessment and plan: No obstructing nephrolithiasis noted on CT. CT does show a left mid and proximal ureteral density described as a possible clot or mass. Urology consulted. Evaluate for possible ureteral stent. Creatinine is elevated at 1.4 on admission, now 1.3; d/t obstruction and/or volume depletion. (5) Pancreatitis: Status: Chronic Assessment and plan: Mild lipase elevation. No ductal dilation noted on CT. Pt describes having an appetite. No appreciable LUQ pain currently. Will allow a diet and monitor. Consider an MRCP. Pt doesn't have a gallbladder. (6) SARS-CoV-2 positive: Status: Acute Assessment and plan: Recent history. Not hospitalized during the course of the infection. H/O 2 Covid Immunizations; Pfizer. (7) COPD (chronic obstructive pulmonary disease): Status: Ruled-out Assessment and plan: Severe chronic lung disease described on CT. Currently no exacerbation. Will schedule Duonebs and prn albuterol; O2 saturations primarily 91. Monitor. (8) Discharge planning issues: Status: Acute Assessment and plan: Will need an oncology w/u plan, including a PET scan. (9) SUNNY (acute kidney injury): Status: Acute Assessment and plan: Etiology likely obstruction of L ureter as well as dehydration. Creatinine: 1.4 > 1.3. Oral intake now good. D/C IV fluids. Subjective Subjective Patient reports: no new complaints, feels better, pain is less and tolerating a regular diet; denies nausea, vomiting or shortness of breath Exam Narrative Exam Narrative: Sitting in chair. Const General: cooperative and no acute distress Nutritional Appearance: obese Orientation: alert and oriented x3 Eyes General: appearance normal, both eyes and all related structures Sclera: sclerae normal Resp Effort & Inspection: normal respiratory effort Auscultation: clear to auscultation bilaterally and diminished lung sounds Cardio Rate: tachycardic Rhythm: regular rhythm Heart Sounds: S1 normal and S2 normal GI Inspection: obesity Palpation: soft and tender (L mid abd) Auscultation: hypoactive bowel sounds Skin General skin exam: no rashes or lesions noted Neuro General: no focal motor deficits Cranial Nerves: facial strength normal Cognition: normal cognition Speech: speech normal Extrem General: no pedal edema and no calf tenderness Psych Appearance: grossly normal Mental Status: mental status grossly normal Speech and Movement: speech and movement normal Affect: normal affect Objective Last Vital Signs Temp 36.6 C 03/18/22 07:27 Pulse 112 H 03/18/22 07:27 Resp 14 03/18/22 07:27 BP 117/77 03/18/22 07:27 Pulse Ox 90 L 03/18/22 07:27 Laboratory Results - last 24 hr 03/17/22 03/17/22 03/18/22 10:37 15:40 07:00 Sodium 144 145 Potassium 3.8 4.1 Chloride 105 109 H Carbon Dioxide 29.2 29.3 Anion Gap 9.8 6.7 BUN 14 13 Creatinine 1.4 H 1.3 H Estimated GFR/1.73 m2 38.76 42.22 Glucose 84 89 Calcium 9.4 8.9 Magnesium 1.8 Total Bilirubin 0.3 0.2 AST 40 H 35 ALT 33 32 Alkaline Phosphatase 135 H 120 H Total Protein 8.0 6.7 Albumin 2.9 L 2.5 L Lipase 480 H COVID-19 Source Nasal/Nares SARS-CoV-2 (PCR) Negative
--- NOTE | 2022-03-18 14:11 | PDOC.CMIN ---
- If Service Date Differs Date of service: 03/18/22 Time of Service: 14:11 Care Management Initial Assess REASON FOR HOSPITALIZATION:: pancreatitis, hydronephrosis PAST MEDICAL HISTORY/PAST SURGICAL HISTORY:: All Active Problems. SUNNY (acute kidney injury) (Acute). Discharge planning issues (Acute). Pulmonary lesion (Acute). Lytic bone lesions on xray (Acute). Hydronephrosis (Acute). Pancreatitis (Chronic). Ureteral mass (Acute). SARS-CoV-2 positive (Acute). Back pain (Acute). Urolithiasis (Chronic). 3mm stable between 2016 and 2020. Medical History. Endometriosis (09/16/14). Fracture of left humerus (09/16/14). History of left breast cancer. Sciatica of right side (09/16/14). Surgical History. S/P breast lumpectomy. Status post cholecystectomy (09/16/14) PREVIOUS FUNCTIONAL STATUS/SOCIAL/FAMILY SUPPORTS:: Heide lives in [facility] with her , Guerrero. She works in the kitchen at the [employer]. She is independent at baseline. CURRENT FUNCTIONAL STATUS:: Heide was sitting up in her chair when CM met with her. She stated that per MD, she would be seen by Urology tomorrow prior to discharge. She stated that she is planning to return to work, and is scheduled for tomorrow. CM will offer a letter for work, if indicated. She stated that things are going well, but she is bored being in the hospital. CM brought her activity books to keep her busy while she is here. She reported that she does not anticipate the need for services upon discharge. CM will continue to follow. ADVANCE DIRECTIVES:: None on file. Has patient been provided with info about the portal/API?: Yes Did the patient sign up for the portal?: No CODE STATUS:: Full Code INSURANCE COVERAGE / FINANCIAL ISSUES:: MVP. CM offered pt dermatology physician assistant packet, at pt request. CURRENT HOME/COMMUNITY SERVICES/EQUIPMENT:: None PRIMARY CARE PHYSICIAN:: Azucena Ascencio POTENTIAL DISCHARGE NEEDS:: Follow up appointments. PATIENT/FAMILY EDUCATION NEEDS:: Review discharge instructions and limitations, discussion of self care needs including ask me three. ANTICIPATED BARRIERS TO DISCHARGE:: None. TRANSPORTATION:: Via private vehicle by family. PLAN:: Anticipate Heide will return home when medically cleared. Her will drive her home via private vehicle. She will follow up with her PCP and discharge plan of care. CM will continue to follow.
[2022-03-19] VITALS (15 sets, daily range): BP systolic 114–133; BP diastolic 76–96; PULSE 104–128; RESP 8–23; TEMP 36.4–36.9; O2SAT 89–96; BMI 32.3
--- NOTE | 2022-03-19 | DI.MRI_ITS ---
Exam(s) MR ABDOMEN WO EXAM: MR ABDOMEN WO CLINICAL HISTORY: pancreatitis, common bile duct dilated TECHNIQUE: Multiplanar multisequence MRI was performed. No IV contrast COMPARISON: CT CT CHEST/ABD/PEL WO from 03/17/2022 FINDINGS: VISUALIZED LUNG BASES: Nodular infiltrates noted. Largest is in the posterior basal segment right lo wer lobe pleural based, measuring approximately 2.5 x 2 cm. This corresponds to what is seen on CT s can 03/17/2022. Also small left pleural effusion again noted. LIVER: There are no discrete focal hepatic lesions identified. Hepatic steatosis evident. BILIARY/pancreas: The gallbladder surgically absent. The CBD is not dilated. It measures 6 millimet ers. Small cystic lesions seen in the uncinate pancreas and another similar finding in the pancreati c tail anterior aspect, these measuring 5 and 4 millimeters, respectively. There is some streaking-f luid at the pancreatic tail level. SPLEEN: Spleen is not enlarged and there are no intrasplenic lesions. ADRENALS: There are no significant adrenal masses. KIDNEYS: Right kidney unremarkable with exception of a 3 millimeter benign cyst in the superior pole. Left kidney exhibits moderate hydronephrosis, as seen on the recent CT scan. Small focus of signal a bnormality seen in the upper left ureter. There is no evidence of mass in the left kidney. There is fluid external to Gerota's fascia around the left kidney. This may be related to the pancreatic angelica l ABDOMINAL AORTA: Not enlarged and there is no significant para-aortic adenopathy. ANTERIOR ABDOMINAL WALL/GI: There is no evidence of significant anterior abdominal wall hernia in the field of view of this study.Is no evidence of obvious bowel obstruction. OSSEOUS: There are no lytic osseous lesions in the field of view of this study, realizing that this i s limited to the abdomen (pelvis not scanned).. No evidence of bowel obstruction. IMPRESSION: 1. Left-sided hydronephrosis (moderate) which appears to be related to an element of obstruction at t he level of the ureteropelvic junction. 2. Some streaking is noted around the pancreatic tail and correlation with appropriate blood work rec ommended rule out pancreatitis. No streaking around the pancreatic head, neck, and body, and the gold creatic duct is not dilated. CBD diameter is upper normal. No obvious mass in the pancreatic head a lthough there is a small 4-5 millimeters cystic structure in the uncinate process of the pancreas. Fluid around the Gerota's fascia left-side, as described above. 3. Hepatic steatosis. No focal hepatic lesions. No splenomegaly. No adrenal masses. 4. Small left pleural effusion. Nodular infiltrates in the visualized lung bases. 5. DATA REPOSITORY:
[2022-03-19] MEDS: Heparin 5,000 UNITS/ML VIAL 5000 UNITS SC ×2 (02:26→10:07)
[2022-03-19] MEDS: Ketorolac 15 MG/ML VIAL IVP ×3 (06:04→17:42)
[2022-03-19 07:23] LABS: HCT 35.8 % (36.0-46.0); HGB 11.8 g/dL (11.2-15.7); MCH 30.5 pg (27.0-33.0); MCV 93 fL (80-95); MPV 8.7 fL (8.0-11.0); Platelet Count 382 10^3/uL (130-400); RBC 3.87 10^6/uL (3.93-5.22); RDW 13.9 % (11.7-14.6); RDW-SD 47.4 fL; WBC 8.41 10^3/uL (4.4-10.8)
--- NOTE | 2022-03-19 08:00 | DI.US_ITS ---
Exam(s) US ABDOMEN EXAM: US ABDOMEN CLINICAL HISTORY: hydronephrosis and pancreatitis TECHNIQUE: Ultrasound of complete upper abdomen performed using standard protocol. COMPARISON: US US RENAL from 03/08/[address] CHEST/ABD/PEL WO from 03/17/2022 FINDINGS: There is no ascites evident. LIVER: Liver is somewhat echogenic implying steatosis. There are no discrete focal hepatic evident. GALLBLADDER/BILIARY: Gallbladder surgically absent. The common hepatic duct isnot dilated, measuring 6mm at the level of baljinder hepatis. PANCREAS: There is no evidence of pancreatic mass nor dilatation of the pancreatic duct. SPLEEN: The spleen is not enlarged and there are no intrasplenic lesions evident. KIDNEYS:Right kidney unremarkable. Mild-moderate hydronephrosis of the left kidney noted con this co nsistent with what is seen on the recent CT scan. ABDOMINAL AORTA: There is no evidence of abdominal aortic aneurysm. IVC: Normal diameter where visualized. IMPRESSION: 1. Gallbladder surgically absent 2. Mild left-sided hydronephrosis, commensurate with what is seen on scan performed 2 days ago. 3. Hepatic steatosis. No discrete focal hepatic lesions. DATA REPOSITORY:
[2022-03-19] MEDS: Albuterol/Ipratropium 3 ML UPD VIAL UPD ×3 (08:48→16:39)
[2022-03-19] MEDS: Normal Saline Flush 10 ML SYR IVP ×4 (10:06→17:43)
[2022-03-19] MEDS: Ondansetron 4 MG/2 ML VIAL IVP (10:56)
[2022-03-19] MEDS: LORazepam 20 MG/10 ML VIAL IVP (12:18)
--- NOTE | 2022-03-19 12:59 | UCONE_ITS ---
Date of service: 03/19/22 Time of Service: 12:59 Assessment and Plan Assessment and plan (1) Hydronephrosis, left: Status: Acute Assessment and plan: The exact etiology of the hydronephrosis is not completely clear, but the patient is symptomatic, so I believe she would benefit from placement of a left ureteral stent. Ultimately, we can make arrangements to do a left flexible ureteroscopy to see i f the lesion is actually within the ureter or is extrinsic to the ureter and causing hydronephrosis from extrinsic pressure. The absence of blood in her urinalysis on admission points more toward an extrinsic mass rather than a ureteral tumor or clot within the ureter. History of Present Illness History of Present Illness Chief Complaint: Left hydronephrosis Narrative: This is a 57-year-old woman who has a history of breast cancer. She presented to urgent care with left-sided flank pain. She was treated for a urinary tract infection. Her urine culture ultimately showed no growth of uropathogens. She initially had some improvement in her pain, but then presented to the emergency department with worsening left-sided back and flank pain. As part of her evaluation, she had a CT scan which demonstrates left hydronephrosis. The scan was done without IV contrast. There is no stone in the ureter causing the hydronephrosis. There may be a soft tissue mass present. Additional imaging studies have raised the possibility of there being metastatic disease. The patient has both lung and bone lesions suggestive of metastatic breast cancer. She is not having any fevers or chills. She is not passing any gross hematuria Review of Systems Narrative: No fevers or chills No vision change or dysphasia No diabetes or thyroid dysfunction Hx asthma. No hemoptysis No chest pain or palpitations Hx pancreatitis. No ulcers or jaundice No seizures, strokes or peripheral neuropathy No bleeding disorders No gout PFSH All Active Problems (Updated 03/19/22 @ 13:08 by Charanjit Escalera MD) Hydronephrosis, left (Acute) SUNNY (acute kidney injury) (Acute) Discharge planning issues (Acute) Pulmonary lesion (Acute) Lytic bone lesions on xray (Acute) Hydronephrosis (Acute) Pancreatitis (Chronic) Ureteral mass (Acute) SARS-CoV-2 positive (Acute) Back pain (Acute) Urolithiasis (Chronic) 3mm stable between 2016 and 2020 Medical History (Updated 07/11/22 @ 13:08 by Charanjit Escalera MD) Endometriosis (09/16/14) Fracture of left humerus (09/16/14) History of left breast cancer (~2014) 10/12/14 [facility] bx: invasive ductal ca LEFT breast Sciatica of right side (09/16/14) Surgical History S/P breast lumpectomy Status post cholecystectomy (09/16/14) Family History Mother Emphysema/COPD Father Heart disease Sister Neoplasm MELANOMA Brother No problems noted. Grandfather No problems noted. Grandfather No problems noted. Grandmother No problems noted. Grandmother No problems noted. Social History Smoking/Tobacco Use Status: Current every day Tobacco Type: cigarettes Smoking packs per day: 0.5 Smoking cigarettes per day: 10.0 Second Hand Exposure: Yes Smoking risk assessment performed?: Yes Alcohol Intake: current Alcohol Intake frequency: other Drug use: Never Substance use type: does not use Household members: spouse Number of Children: 2 number of grandchildren: 2 current occupation: works in kitchen at [employer] Pets and animals: Yes Pets and animals: cat(s) and dog(s) What type of physical activity do you participate in: none Do you feel safe at home: Yes Do you feel safe in your relationship?: Yes Exam Narrative Exam Narrative: She does not appear septic or toxic Her vital signs are documented elsewhere She is awake and alert I reviewed her CT scan on the PACS system. She does have a kidney stone, but it is nonobstructing. She has left hydronephrosis and a dilated left proximal ureter down to the level of the soft tissue density. I am not able to tell if the density is in the ureter or extrinsic to the ureter. I reviewed her lab work on admission. Her urinalysis is actually normal with no blood whatsoever. Results Last Vital Signs Temp 36.7 C 03/19/22 09:22 Pulse 113 H 03/19/22 09:22 Resp 18 03/19/22 09:22 BP 120/76 03/19/22 09:22 Pulse Ox 96 03/19/22 09:22 Labs Result diagrams: 03/19/22 07:04 03/18/22 07:00 Labs: Laboratory Results - last 24 hr 03/19/22 07:04 WBC 8.41 RBC 3.87 L Hgb 11.8 Hct 35.8 L MCV 93 MCH 30.5 MCHC 33.0 RDW 13.9 Plt Count 382 MPV 8.7
--- NOTE | 2022-03-19 13:16 | ANES.PREOP_ITS ---
General Info Date of Service Date Performed: 03/19/22 Height: 4 ft 11 in Weight: 72.575 kg Body Mass Index (BMI): 32.3 Surgical Procedure: Operation Date: 03/19/22 14:40 Proposed Procedure Side Surgeon p Cystoscopy/Retrograde/Stent Placement Left Charanjit Escalera MD Meds Allergies and Home Medications Allergies Allergy/AdvReac Type Severity Reaction Status Date / Time codeine AdvReac Mild N/V Verified 03/17/22 10:06 oxycodone AdvReac Mild N/V Verified 03/17/22 10:06 Home Medication Medication Instructions Recorded acetaminophen 500 mg capsule 1,000 mg PO TID PRN 05/14/18 ibuprofen 200 mg tablet (Motrin IB) 600 mg PO TID 05/14/18 naproxen 500 mg tablet (Naprosyn) 500 mg PO BID PRN #20 tabs 06/01/21 albuterol sulfate 90 mcg/actuation 1 - 2 inh inhalation Q4H PRN 09/27/21 breath activated powder inhaler bronchospasm #2 ea Current Visit Medications: Current Medications Generic Name Dose Route Start Last Admin Trade Name Freq PRN Reason Stop Dose Admin Acetaminophen 0 mg 03/17/22 15:05 Acetaminophen 325 Mg Tab PO Q4H PRN PRN Albuterol Sulfate 2.5 mg 03/17/22 15:05 Albuterol 2.5 Mg/3 Ml Inh Soln Vial UPD Q2H PRN PRN Albuterol/Ipratropium 3 ml 03/17/22 20:00 03/19/22 08:48 Albuterol/Ipratropium 3 Ml Upd Vial UPD 3 ml TID TIKA Administration Dimethicone/Zinc Oxide 0 gm 03/17/22 15:05 Suyapa Protect Cream 142 Gm Tube TP PRN PRN Heparin Sodium (Porcine) 5,000 units 03/17/22 18:00 03/19/22 10:07 Heparin 5,000 Units/Ml Vial SC 5,000 units Q8H TIKA Administration Hydromorphone HCl 0.5 mg 03/17/22 16:36 Hydromorphone 2 Mg/Ml Syr IVP Q4H PRN PRN Sodium Chloride 500 mls @ 0 mls/hr 03/17/22 10:26 Saline 500ml Bag IV PRN PRN As Directed Ringer's Solution 1,000 mls @ 100 mls/hr 03/19/22 13:15 IV INFUSION TIKA IV Miscellaneous Supplies 1 each 03/17/22 10:30 Iv Access IV DIRECTED TIKA Ketorolac Tromethamine 15 mg 03/18/22 00:00 03/19/22 11:05 Ketorolac 15 Mg/Ml Vial IVP 03/23/22 00:00 15 mg Q6H TIKA Administration Lorazepam 1 mg 03/19/22 12:00 03/19/22 12:18 Lorazepam 20 Mg/10 Ml Vial IVP 1 mg 1200 TIKA Administration Magnesium Hydroxide 30 ml 03/17/22 15:05 Milk Of Magnesia 30 Ml Cup PO DAILY PRN PRN Ondansetron HCl 4 mg 03/19/22 10:46 03/19/22 10:56 Ondansetron 4 Mg/2 Ml Vial IVP 4 mg Q4H PRN PRN Administration Polyethylene Glycol 17 gm 03/17/22 15:05 Polyethylene Glycol 3350 17 Gm Packet PO DAILY PRN PRN Constipation Sodium Chloride 0 ml 03/17/22 10:26 03/19/22 12:20 Normal Saline Flush 10 Ml Syr IVP 10 ml PRN PRN Administration PFSH Active Problems Active Problems: Problem Status Onset Code Hydronephrosis, left N13.30 SUNNY (acute kidney injury) N17.9 Discharge planning issues Z02.9 Pulmonary lesion J98.4 Lytic bone lesions on xray M89.9 Hydronephrosis N13.30 Pancreatitis K85.90 Ureteral mass N28.89 SARS-CoV-2 positive U07.1 Back pain M54.9 Urolithiasis N20.9 Medical History Medical History (Updated 03/19/22 @ 13:08 by Charanjit Escalera MD) Endometriosis (09/16/14) Fracture of left humerus (09/16/14) History of left breast cancer (~2014) 10/12/14 [facility] bx: invasive ductal ca LEFT breast Sciatica of right side (09/16/14) Surgical History Surgical History S/P breast lumpectomy Status post cholecystectomy (09/16/14) Tobacco Smoking/Tobacco Use Status: Current every day Tobacco Type: cigarettes Smoking packs per day: 0.5 Smoking cigarettes per day: 10.0 Second hand exposure: Yes Alcohol Alcohol Intake: current Alcohol intake frequency: other Substance Use Substance use: Never Substance use type: does not use Vital Signs and Lab Results Vital Signs Most Recent Vital Signs in EMR: Most Recent Vital Signs Temp Pulse Resp BP Pulse Ox 36.7 C 113 H 18 120/76 96 03/19/22 09:22 03/19/22 09:22 03/19/22 09:22 03/19/22 09:22 03/19/22 09:22 Lab Results Result Diagrams: 03/19/22 07:04 03/18/22 07:00 Blood Type / Crossmatch: No Data to Display Complete Blood Count: White Blood Count 8.41 10^3/uL (4.4-10.8) 03/19/22 07:04 Red Blood Count 3.87 10^6/uL (3.93-5.22) L 03/19/22 07:04 Hemoglobin 11.8 g/dL (11.2-15.7) 03/19/22 07:04 Hematocrit 35.8 % (36.0-46.0) L 03/19/22 07:04 Platelet Count 382 10^3/uL (130-400) 03/19/22 07:04 Complete Metabolic Panel: Sodium Level 145 mmol/L (136-145) 03/18/22 07:00 Potassium Level 4.1 mmol/L (3.5-5.1) 03/18/22 07:00 Chloride Level 109 mmol/L (98-107) H 03/18/22 07:00 Carbon Dioxide Level 29.3 mmol/L (21.0-32.0) 03/18/22 07:00 Blood Urea Nitrogen 13 mg/dL (7-18) 03/18/22 07:00 Creatinine 1.3 mg/dL (0.55-1.02) H 03/18/22 07:00 Estimated GFR/1.73 m2 42.22 (mL/min/1.73m2) 03/18/22 07:00 Magnesium Level 1.8 mg/dL (1.8-2.4) 03/18/22 07:00 Calcium Level 8.9 mg/dL (8.5-10.1) 03/18/22 07:00 Albumin 2.5 g/dL (3.4-5.0) L 03/18/22 07:00 Glucose Level 89 mg/dL (74-106) 03/18/22 07:00 Liver Function Panel: Alanine Aminotransferase (ALT/SGPT) 32 U/L (14-59) 03/18/22 07: 00 Aspartate Amino Transf (AST/SGOT) 35 U/L (15-37) 03/18/22 07:00 Coagulation Panel: No Data to Display Cardiac Panel: No Data to Display Arterial Blood Gas: No Data to Display Venous Blood Gas: No Data to Display Pancreas Panel: Lipase 480 U/L (73-393) H 03/17/22 10:37 Thyroid Panel: No Data to Display Infectious Disease: Coronavirus (COVID-19)(PCR) Negative (Negative) 03/17/22 15:40 Coronavirus 2019 Source Nasal/Nares 03/17/22 15:40 Blood Cultures: No Data to Display Toxicology Panel: No Data to Display Imaging and Studies Imaging and Studies Study information below may be from another EMR and interpreted by another provider. Please see original notes in EMR for more complete details. Echocardiogram Summary: Date of Exam: 12/27/14Sex: F : 1965Age: 49 Exam(s) [id number] EC:Echocardiogram-Complete *[facility]* *[facility]* [address] [place] [address] Date of study: 12/27/2014 *STUDY CONCLUSIONS* Summary: 1. Left ventricle: Systolic function was hyperdynamic. The estimated ejection fraction was 65-70%. 2. Right ventricle: The cavity size was normal. Wall thickness was normal. Systolic function was normal. 3. Pulmonary arteries: Pulmonary systolic pressure was = 25mm Hg. Other Study Summary:: Date of Exam: 03/19/22 Exam(s) US ABDOMEN CLINICAL HISTORY: hydronephrosis and pancreatitis FINDINGS: There is no ascites evident. LIVER: Liver is somewhat echogenic implying steatosis. There are no discrete focal hepatic evident. GALLBLADDER/BILIARY: Gallbladder surgically absent. The common hepatic duct isnot dilated, measuring 6mm at the level of baljinder hepatis. PANCREAS: There is no evidence of pancreatic mass nor dilatation of the pancreatic duct. SPLEEN: The spleen is not enlarged and there are no intrasplenic lesions evident. KIDNEYS:Right kidney unremarkable. Mild-moderate hydronephrosis of the left kidney noted con this consistent with what is seen on the recent CT scan. ABDOMINAL AORTA: There is no evidence of abdominal aortic aneurysm. IVC: Normal diameter where visualized. IMPRESSION: 1. Gallbladder surgically absent 2. Mild left-sided hydronephrosis, commensurate with what is seen on scan performed 2 days ago. 3. Hepatic steatosis. No discrete focal hepatic lesions. Anesthesia Assessment and Plan Anesthesia History Personal History: Delayed Emergence Family History: No Family History of Anesthesia Complications Exercise Tolerance Exercise Tolerance: Metabolic Equivalents>4 Pertinent Negatives Pertinent Negatives: No Symptoms of GERD Cardiac & Pulmonary Exam Cardiac Exam: Normal S1/S2 Heart Sounds Pulmonary Exam: Clear Bilateral Breath Sounds Implantable Cardiac Device Does patient have a Pacemaker or an ICD?: No Airway Exam Known Difficult Airway: No Mallampati Class: 3 Mouth Opening: Normal (> 3cm) Thyromental Distance: Greater than 3 cm Neck Range of Motion: Full ROM Neck Circumference: Normal Teeth Condition: Normal Dentition and Removable Dentures/Plates Upper (Upper plate at home) ASA Classification ASA Score: ASA 3 Emergency Case?: No NPO Status NPO Status: NPO Clears >2 hours, Solids >8 hours Anesthesia Plan Resuscitation Status: Full Code Anesthesia Technique: General Anesthesia Airway Planned: Natural Airway Monitors Used: Standard Monitors
--- NOTE | 2022-03-19 14:38 | DI.VRAD_ITS ---
PROCEDURE INFORMATION: Exam: MR Abdomen Without Contrast Exam date and time: 03/19/2022 1:00 PM Age: 57 years old Clinical indication: Abdominal pain; Prior surgery; Surgery type: Cholecystectomy TECHNIQUE: Imaging protocol: Magnetic resonance imaging of the abdomen without contrast. COMPARISON: 1. US ABDOMEN 03/19/2022 8:[address] CHEST/ABD/PEL WO 03/17/2022 12:07 PM FINDINGS: Pleural spaces: A small left pleural effusion present. Liver: No discrete mass is noted within the liver. Gallbladder and bile ducts: The gallbladder is surgically absent. No intrahepatic or extrahepatic bile duct dilatation is seen. Pancreas: Unremarkable. No ductal dilation. Spleen: Unremarkable. No splenomegaly. Adrenal glands: Unremarkable. No mass. Kidneys and ureters: Jackie left hydronephrosis and left perinephric fluid/edema does not appear significantly changed from the recent exams. Stomach and bowel: Visualized stomach and intestines are unremarkable. Intraperitoneal space: No free fluid. Vasculature: No abdominal aortic aneurysm. Bones/joints: Numerous abnormalities of the vertebral bone marrow is present consistent with metastatic disease. Soft tissues: Unremarkable. IMPRESSION: 1. Status post cholecystectomy. 2. Small left pleural effusion. 3. No intrahepatic or extrahepatic bile duct dilatation. 4. Persistent jackie left hydronephrosis and left perinephric fluid/edema suspicious for high-grade obstruction near the left UPJ. 5. Findings suspicious for osseous metastases. Dictated and Authenticated by: Akhil Villeda MD. Ordering:BRAN Ta MD
[2022-03-19] MEDS: Lactated Ringers 1,000 ML 100 ML IV (14:44)
--- NOTE | 2022-03-19 15:00 | DI.RAD_ITS ---
Exam(s) XR RETROGRADE IN OR EXAM: XR RETROGRADE IN OR CLINICAL HISTORY: RETROGRADE/STENT PLACEMENT. TECHNIQUE: 2D digital imaging was performed. COMPARISON: No exams were available for comparison FINDINGS: Fluoroscopy was provided during retrograde left study performed by urologist. See procedure report f or details. Total fluoroscopy time 7.9 seconds Cumulative dose 2.24mGy IMPRESSION: DATA REPOSITORY: RADIATION DOSE DELIVERED:
[2022-03-19] MEDS: Lidocaine 2% Jelly 6 ML SYR (15:50)
[2022-03-19] MEDS: Omnipaque 300 MG/ML 50 ML BTL (15:50)
--- NOTE | 2022-03-19 15:52 | ROE_ITS ---
Date of service: 03/19/22 Time of Service: 15:52 Operative Note Operative Note DATE OF PROCEDURE: 03/19/22 PRE-OP DIAGNOSIS: Left hydronephrosis POST-OP DIAGNOSIS: same PROCEDURE: Cystoscopy, left retrograde pyelogram, insert left ureteral stent SURGEON: Charanjit Escalera ANESTHESIA TYPE: General:No Airway Refer to Anesthesia Record ESTIMATED BLOOD LOSS: 0 PATHOLOGY: none sent Patient was transported to: PACU Patient's condition: stable Implants: 6 South African by 22 to 30 cm left ureteral stent Indications: This is a 57-year-old woman who presented with left flank pain. She was found to have left hydronephrosis but no obstructing ureteral stone was identified. She presents for placement of a left ureteral stent Findings: Left hydronephrosis with narrowing in the left proximal ureter-no persistent filling defect Procedure Description: The patient was brought to the operating room on 03/19/2022. After successful induction of general anesthesia without intubation, she was placed in the dorsal lithotomy position. Her genitalia was prepped and draped. To present Xylocaine jelly was instilled into the urethra to act as a local anesthetic. A 22 [place] rigid cystoscope was passed through the urethra into the bladder. The bladder was inspected with a 30 degree lens. The left ureteral orifice was identified and was cannulated with a 5 South African access catheter. A retrograde film was obtained by injecting Omnipaque through the access catheter under fluoroscopic guidance. The calyces and renal pelvis are dilated down to the proximal ureter. No specific intraureteral filling defect was identified. Glidewire was then passed through the access catheter and advanced up to the upper pole calyx. A 6 [place] African variable length stent was then advanced over the guidewire. The proximal end of the stent was curled in the renal pelvis and the distal end was curled within the bladder. The positioning of the stent was confirmed both fluoroscopically and cystoscopically. The patient tolerated this procedure well with no complications.
--- NOTE | 2022-03-19 16:25 | W.ANESPOSTOP ---
Postoperative Evaluation Date, Time and Location Date Performed: 03/19/22 Time Performed: 16:26 Patient Location: PACU Vital Signs Most Recent Imported Vital Signs: Most Recent Vital Signs Temp Pulse Resp BP Pulse Ox 36.6 C 118 H 17 122/90 95 03/19/22 16:02 03/19/22 16:12 03/19/22 16:12 03/19/22 16:12 03/19/22 16:12 Pain Score Most Recent Pain Score: Most Recent Pain Score Pain Level 0 03/19/22 16:12 Assessment Mental Status: Awake (Alert & Oriented to Patient Baseline) Airway and Respiratory Function: Abnormal Respiratory exam (See explanation) (Patient continues to expectorate significant volume. Saturations are improving, weaning off oxygen for transfer to floor. ) Cardiovascular Function: Receiving care as an inpatient (Tachycardic at rest (preop baseline)) Hydration Status: Adequately Hydrated Nausea & Vomiting: No Nausea or Vomiting Pain: Pt. Denies Any Pain Peripheral Nerve Block: Patient did not receive a nerve block
--- NOTE | 2022-03-19 16:38 | W.PM.DS.N ---
Date of service: 03/19/22 Time of Service: 16:38 DS: Diagnosis Discharge Diagnosis (1) Hydronephrosis, left: Status: Acute Discharge Plan Disposition Patient Disposition: HOME Condition: Stable Discharge Details Reason For Visit: Pancreatitis,Hydronephrosis Admit Date/Time: 03/17/22 15:06 Admit Provider: Keyon Andino Attending Provider: Keyon Andino Primary Care Provider: Azucena Ascencio Hospital Course Hospital Course: This is a 57 yo female with a h/o breast cance s/p lumpectomyr (benign findings on mammogram at [facility] on [place]/11/20),asthma, bilateral oophorectomy, cholecystectomy, recent SARS-CoV-2 infection.? She presented with appx 2 weeks of left-sided abd pain / back pain.? Dxd with possible UTI at urgent care recently and given antibiotic.? Culture grew gram + mixed kike.? She endorsed improvement in her pain but then worsened the day before this presentation.? Pain described as sharp but at times more dull and crampy.? Denies constipation.? Pain rated as 8/10 in the ED.? Ibuprofen has helped marginally for the pain.? Going from sitting to standing worsens the pain.? + nausea, no emesis.? No F/C/diarrhea.? No hematuria, urgency, frequency. Findings in the ED:? HR in the 120-130's. O2 saturation on RA in the 90-mid 90's range.? + LUQ and LLQ tenderness.? WBC count normal.? Lipase mildly elevated at 480. UA neg.? Creatinine 1.4 (normal at baseline). CT chest:? 1. Multifocal somewhat nodular opacities in the lungs.? While this may be due to an infectious/inflammatory process, metastatic disease should be considered given the findings in the abdomen and pelvis. 2. Sclerotic T8 and T9 vertebral bodies with fractures and loss of about a quarter of the height of the vertebral bodies.? Lytic and sclerotic lesion involving the right iliac bone.? Sclerotic areas with periosteal reaction involving both iliac bones.? The findings are suspicious for metastatic disease. 3. Acute bilateral rib fractures. 4. 2 cm spiculated mass in the medial left breast.? The patient has a history of a left breast mass, category 5.? This was in 2014.? There are no available subsequent mammograms for comparison.? Please correlate with patient's clinical history.? Mammography should be considered for further evaluation. 5. Small left pleural effusion. 6. Left hydronephrosis with out obstructing stone.? The possibility of a clot or mass causing the obstruction cannot be excluded.? Left perinephric fluid. Her UA was unremarkable. Creatinine 1.4 (baseline of 0.8). Creatinine 1.3 on recheck after IV hydration. Lipase mildly elevated at 480. Upon admission her LUQ pain was minimal and she endorsed an appetite. Her diet was advanced from clear liquids to regular and she tolerated this well. Abd US obtained that showed mild left-sided hydronephrosis, commensurate with what is seen on the previous CT scan. Hepatic steatosis.? No discrete focal hepatic lesions. MRCP performed that showed: 1. Left-sided hydronephrosis (moderate) which appears to be related to an element of obstruction at the level of the ureteropelvic junction. 2. Some streaking is noted around the pancreatic tail and correlation with appropriate blood work recommended rule out pancreatitis.? No streaking around the pancreatic head, neck, and body, and the pancreatic duct is not dilated.? CBD diameter is upper normal.? No obvious mass in the pancreatic head although there is a small 4-5 millimeters cystic structure in the uncinate process of the pancreas.? Fluid around the Gerota's fascia left-side, as described above. 3. Hepatic steatosis.? No focal hepatic lesions.? No splenomegaly.? No adrenal masses. 4.? Small left pleural effusion.? Nodular infiltrates in the visualized lung bases. Urology consulted for evaluation and placement of stent in the left ureter. A left retrograde pyelogram showed the calyces and renal pelvis to be dilated down to the proximal ureter.? No specific intraureteral filling defect was identified. A stent was successfully placed. Incidently, post-ureteroscopy, she experienced a bronchospasm that resolved with a duoneb treatment. She does have a h/o asthma and uses an albuterol MDI prn. However, her CT scan indicates lung findings compatable with COPD. A dose of IV methylprednisonone was administered and she was started on Symbicort. Pt recently received a notice to schedule a mammogram at [facility] and she will do that tomorrow. She will be seeing the breast surgeon that same day. Further w/u including procuring tissue and oncology appt will ensue from there. F/U with PCP in 1-2 weeks. Home Meds and New Rx's Prescriptions: New budesonide-formoterol [Symbicort] 80-4.5 mcg/actuation Hfa Aerosol Inhaler 2 puff inhalation BID Qty: 10.2 0RF Continued acetaminophen 500 mg capsule 1,000 mg PO TID PRN ibuprofen [Motrin IB] 200 mg tablet 600 mg PO TID albuterol sulfate 90 mcg/actuation aerosol powdr breath activated 1 - 2 inh IH Q4H PRN (Reason: bronchospasm) Qty: 2 11RF Discontinued naproxen [Naprosyn] 500 mg tablet 500 mg PO BID PRNQty: 20 0RF Discharge Instructions Instructions: Cystoscopy (DC) Stand Alone Forms: Nursing Discharge Form Referrals: HEMATOLOGY/[place] [place]] - (PLEASE CALL SATURDAY FOR A Follow up 1-2 weeks) Activity:: Activity as Tolerated Equipment/Supplies:: No Equipment Needed Diet:: As Tolerated Discharge Orders Discharge Orders: Discharge Order (Routine); Ordered 03/19/22 Ordered By: Keyon Andino Discharge Data Discharge Date/Time-TO BE ENTERED AT DEPARTURE: 03/19/22 18:45 DS: Summary Time Spent with Patient providing and/or coordinating discharge services: Greater than 30 minutes Status at Discharge Functional status at discharge: independent ambulation Overall status at discharge: patient is not back to baseline Mental Status: mental status grossly normal Speech and Movement: speech and movement normal Mood: congruent mood Affect: normal affect Exam Narrative Exam Narrative: Sitting in chair. Const General: cooperative and no acute distress Nutritional Appearance: obese Orientation: alert and oriented x3 Eyes General: appearance normal, both eyes and all related structures Sclera: sclerae normal Resp Effort & Inspection: normal respiratory effort Auscultation: clear to auscultation bilaterally and diminished lung sounds Cardio Rate: tachycardic Rhythm: regular rhythm Heart Sounds: S1 normal and S2 normal GI Inspection: obesity Palpation: soft and tender (L mid abd) Auscultation: hypoactive bowel sounds Skin General skin exam: no rashes or lesions noted Neuro General: no focal motor deficits Cranial Nerves: facial strength normal Cognition: normal cognition Speech: speech normal Extrem General: no pedal edema and no calf tenderness Psych Appearance: grossly normal Mental Status: mental status grossly normal Speech and Movement: speech and movement normal Mood: congruent mood Affect: normal affect DS: Data Vitals/I&O Vitals and I&O: Vital Signs Temperature 36.6 C 03/19/22 16:02 Temperature Source Tympanic 03/19/22 15:45 Pulse 115 H 03/19/22 16:32 Pulse Rhythm Regular 03/19/22 09:03 Pulse 121 H 03/17/22 16:00 Respiratory Rate 20 03/19/22 16:32 Respiratory Effort 03/19/22 09:03 Respiratory Depth Normal 03/19/22 09:03 Respiratory Pattern Normal 03/19/22 09:03 Blood Pressure 115/96 H 03/19/22 16:32 Blood Pressure Mean 101 03/17/22 16:00 Blood Pressure Position Supine 03/17/22 09:57 Pulse Oximetry 91 L 03/19/22 16:32 Respiratory End-tidal CO2 45 03/19/22 16:32 Oxygen Delivery Method Room Air 03/19/22 16:32 Oxygen Flow Rate 2 03/19/22 16:32 Pain Level 0 03/19/22 16:32 Comment 03/18/22 15:18 Intake & Output 03/18/22 03/19/22 03/19/22 23:59 11:59 23:59 Intake Total 1858.333 / 3731.666 Balance 1858.333 / 3731.666 Weight 72.575 kg Intake: IV 958.333 / 1921.666 Oral 900 / 1810 Other: Comment Per pt. report, void x1 in the toilet. patient voiding independently Emesis Description None Voiding Methods Toilet Toilet Data Completed and Pending Labs on day of discharge: Labs from last 24 hours 03/19/22 07:04 WBC 8.41 RBC 3.87 L Hgb 11.8 Hct 35.8 L MCV 93 MCH 30.5 MCHC 33.0 RDW 13.9 Plt Count 382 MPV 8.7 PFSH All Active Problems (Updated 03/20/22 @ 00:08 by BONG IZAGUIRRE) Hydronephrosis, left (Acute) SUNNY (acute kidney injury) (Acute) Pulmonary lesion (Acute) Lytic bone lesions on xray (Acute) Ureteral mass (Acute) Back pain (Acute) Urolithiasis (Chronic) 3mm stable between 2016 and 2020 Medical History Endometriosis (09/16/14) Fracture of left humerus (09/16/14) History of left breast cancer (~2014) 10/12/14 [facility] bx: invasive ductal ca LEFT breast Sciatica of right side (09/16/14) Surgical History S/P breast lumpectomy Status post cholecystectomy (09/16/14) Family History Mother Emphysema/COPD Father Heart disease Sister Neoplasm MELANOMA Brother No problems noted. Grandfather No problems noted. Grandfather No problems noted. Grandmother No problems noted. Grandmother No problems noted. Social History Smoking/Tobacco Use Status: Current every day Tobacco Type: cigarettes Smoking packs per day: 0.5 Smoking cigarettes per day: 10.0 Second Hand Exposure: Yes Smoking risk assessment performed?: Yes Alcohol Intake: current Alcohol Intake frequency: other Drug use: Never Substance use type: does not use Household members: spouse Number of Children: 2 number of grandchildren: 2 current occupation: works in kitchen at [employer] Pets and animals: Yes Pets and animals: cat(s) and dog(s) What type of physical activity do you participate in: none Do you feel safe at home: Yes Do you feel safe in your relationship?: Yes
--- NOTE | 2022-03-19 17:03 | PDOC.CMDIS ---
- If Service Date Differs Date of service: 03/19/22 Time of Service: 17:03 LACE Index Scoring Tool - Questions: Length of Stay (in days): 2 Acuity (Admit via E.D.?): Yes Comorbidities: Any Tumor E.D. Visits: 1 - Answers: Total Score: 8 Risk of Readmission: Low Risk Care Management Discharge Reason for Hospitalization: pancreatitis, hydronephrosis Discharge Plan: Heide returned home today with no new services. Her drove her home via private vehicle. She will follow up with Oncology, her PCP, and her discharge plan of care. Patient/Family Education Needs: Review discharge instructions and limitations, discussion of self care needs including ask me three.
[2022-03-19] MEDS: methylPREDNISolone SUCC 125 MG VIAL 60 MG IVP (17:41)
== END 2022-03-19 18:45 | disposition home or self-care (01) | DRG 660 ==
LOC: ER 15:16 → MS 16:25
PROVIDERS: Urology; Admitting Provider Family Medicine; Emergency Provider Physician Assistant; PCP Family Medicine; Visit Provider Family Medicine
PROC: 0T778DZ Dilation of Left Ureter with Intraluminal Device, Via Natural or Artificial Opening Endoscopic (ICD-10-PCS; CPT 74450; principal; 2022-03-19 14:30)
DX: N13.1 Hydronephrosis with ureteral stricture, not elsewhere classified (principal); C78.01 Secondary malignant neoplasm of right lung; S22.41XA Multiple fractures of ribs, right side, initial encounter for closed fracture; C78.02 Secondary malignant neoplasm of left lung; C79.51 Secondary malignant neoplasm of bone; K86.1 Other chronic pancreatitis; J90 Pleural effusion, not elsewhere classified; M84.58XA Pathological fracture in neoplastic disease, other specified site, initial encounter for fracture; N63.0 Unspecified lump in unspecified breast; N17.9 Acute kidney failure, unspecified; J45.909 Unspecified asthma, uncomplicated; F17.210 Nicotine dependence, cigarettes, uncomplicated; E86.0 Dehydration; Z85.3 Personal history of malignant neoplasm of breast; X58.XXXA Exposure to other specified factors, initial encounter; K76.0 Fatty (change of) liver, not elsewhere classified; M54.9 Dorsalgia, unspecified; Z86.16 Personal history of COVID-19
CPT/HCPCS: 52332; 52005; 36415; 71250; 80053; 83690; 85027; 87635; 96361; 96365; 96375; 99285; 74176; 74181; 74420; 76700; 81003; 83735; 85025; 94640; 99223; 99232; 99239; J0131; J1644; J1885; J2405; J2930; J3490; J7620; Q9967

== ENCOUNTER → 2022-04-18 21:52 | Outpatient (CLI) | payer OTHER, SELFPAY ==
--- NOTE | 2022-04-17 | DI.RAD_ITS ---
Exam(s) XR KNEE LT 2V AP,LAT EXAM: XR KNEE LT 2V AP,LAT CLINICAL HISTORY: H/O BREAST CA, POSSIBLE PATHOLOGIC FRACTURE ON BONE SCAN, C50.919, Z17.0. TECHNIQUE: 2D digital imaging was performed. Two views. COMPARISON: No exams were available for comparison FINDINGS: BONES: No acute fracture is present. No bony destructive lesion is seen. JOINTS: The knee is normally aligned. No joint effusion is seen. No significant degenerative change s. SOFT TISSUE: Normal. IMPRESSION: Normal radiographs of the left knee. DATA REPOSITORY: RADIATION DOSE DELIVERED:
== END ==
PROVIDERS: PCP Family Medicine; Visit Provider Nurse Practitioner Family
DX: C50.912 Malignant neoplasm of unspecified site of left female breast (principal); Z17.0 Estrogen receptor positive status [ER+]
CPT/HCPCS: 73560

== ENCOUNTER 2022-05-10 05:11 | Outpatient (CLI) | payer OTHER, SELFPAY ==
[2022-05-10 10:55] LABS: Abs Immature Grans 0.01 10^3/uL (0.0-0.06); Absolute Basophil Count 0.01 10^3/uL (0.0-0.2); Absolute Eosinophil Count 0.05 10^3/uL (0.0-0.7); Absolute Lymphocyte Count 0.81 10^3/uL (1.2-3.4); Absolute Neutrophil Count 1.11 10^3/uL (1.2-6.7); Basophils % 0.5; Eosinophils % 2.4; HCT 31.6 % (36.0-46.0); HGB 10.3 g/dL (11.2-15.7); Immature Grans % 0.5; Lymphocytes % 38.8; MCH 30.1 pg (27.0-33.0); MCHC 32.6 % (32.0-36.0); MCV 92 fL (80-95); Monocytes % 4.8; RBC 3.42 10^6/uL (3.93-5.22); RDW 15.2 % (11.7-14.6); RDW-SD 49.7 fL; WBC 2.09 10^3/uL (4.4-10.8)
[2022-05-10 11:11] LABS: ALT 17 U/L (14-59); AST 22 U/L (15-37); Albumin 2.9 g/dL (3.4-5.0); Alkaline Phosphatase 146 U/L (46-116); Anion Gap 6.3 mmol/L (3-11); BUN 15 mg/dL (7-18); Bilirubin, Total 0.2 mg/dL (0.2-1.0); CO2 29.7 mmol/L (21.0-32.0); CREATININE 1.2 mg/dL (0.55-1.02); Calcium 8.5 mg/dL (8.5-10.1); Chloride 106 mmol/L (98-107); Glucose 95 mg/dL (74-106); Potassium 4.4 mmol/L (3.5-5.1); Sodium 142 mmol/L (136-145); Total Protein 7.8 g/dL (6.4-8.2)
[2022-05-10 12:16] LABS: Diff Comment Agrees w/ Instrument; Platelet Count 202 10^3/uL (130-400); RBC Morphology Normal
== END 2022-05-10 05:12 | disposition home or self-care (01) ==
LOC: LBO 05:11
PROVIDERS: PCP Family Medicine; Visit Provider Internal Medicine Hematology & Oncology
DX: C50.912 Malignant neoplasm of unspecified site of left female breast (principal); C78.02 Secondary malignant neoplasm of left lung; C79.51 Secondary malignant neoplasm of bone; Z17.0 Estrogen receptor positive status [ER+]
CPT/HCPCS: 36415; 80053; 85025

== ENCOUNTER 2022-05-24 10:16 | Outpatient (CLI) | payer OTHER, SELFPAY ==
[2022-05-24 10:28] LABS: Abs Immature Grans 0.01 10^3/uL (0.0-0.06); Absolute Basophil Count 0.04 10^3/uL (0.0-0.2); Absolute Eosinophil Count 0.02 10^3/uL (0.0-0.7); Basophils % 1.8; Eosinophils % 0.9; HGB 10.5 g/dL (11.2-15.7); Immature Grans % 0.4; Lymphocytes % 44.1; MCH 30.4 pg (27.0-33.0); MCHC 31.8 % (32.0-36.0); MCV 96 fL (80-95); MPV 8.4 fL (8.0-11.0); Monocytes % 13.2; Neutrophils % 39.6; RBC 3.45 10^6/uL (3.93-5.22); RDW 17.9 % (11.7-14.6); RDW-SD 59.4 fL; WBC 2.27 10^3/uL (4.4-10.8)
[2022-05-24 10:57] LABS: Diff Comment Agrees w/ Instrument; Platelet Count 345 10^3/uL (130-400); Polychromasia Present
[2022-05-24 10:58] LABS: ALT 17 U/L (14-59); AST 12 U/L (15-37); Albumin 3.2 g/dL (3.4-5.0); Alkaline Phosphatase 272 U/L (46-116); Anion Gap 7.9 mmol/L (3-11); BUN 9 mg/dL (7-18); Bilirubin, Total 0.1 mg/dL (0.2-1.0); CO2 31.1 mmol/L (21.0-32.0); CREATININE 0.9 mg/dL (0.55-1.02); Calcium 9.1 mg/dL (8.5-10.1); Chloride 105 mmol/L (98-107); Estimated GFR 74.57 (mL/min/1.73m2); Glucose 98 mg/dL (74-106); Potassium 4.5 mmol/L (3.5-5.1); Sodium 144 mmol/L (136-145)
== END 2022-05-24 10:17 | disposition home or self-care (01) ==
LOC: LBO 10:16
PROVIDERS: PCP Family Medicine; Visit Provider Internal Medicine Hematology & Oncology
DX: C78.00 Secondary malignant neoplasm of unspecified lung (principal); C50.919 Malignant neoplasm of unspecified site of unspecified female breast; C79.51 Secondary malignant neoplasm of bone; C50.912 Malignant neoplasm of unspecified site of left female breast; Z17.0 Estrogen receptor positive status [ER+]
CPT/HCPCS: 36415; 80053; 85025

== ENCOUNTER 2022-05-31 03:58 | Outpatient (CLI) | payer OTHER, SELFPAY ==
[2022-05-31 10:21] LABS: Abs Immature Grans 0.03 10^3/uL (0.0-0.06); Absolute Monocyte Count 0.39 10^3/uL (0.1-0.8); HCT 32.9 % (36.0-46.0); HGB 10.4 g/dL (11.2-15.7); MCH 30.5 pg (27.0-33.0); MCHC 31.6 % (32.0-36.0); MCV 97 fL (80-95); MPV 8.3 fL (8.0-11.0); Platelet Count 379 10^3/uL (130-400); RBC 3.41 10^6/uL (3.93-5.22); RDW 19.8 % (11.7-14.6); RDW-SD 69.3 fL; WBC 3.28 10^3/uL (4.4-10.8)
[2022-05-31 10:41] LABS: ALT 44 U/L (14-59); AST 28 U/L (15-37); Albumin 3.2 g/dL (3.4-5.0); Alkaline Phosphatase 307 U/L (46-116); Anion Gap 8.4 mmol/L (3-11); BUN 13 mg/dL (7-18); Bilirubin, Total 0.1 mg/dL (0.2-1.0); CO2 28.6 mmol/L (21.0-32.0); CREATININE 0.9 mg/dL (0.55-1.02); Calcium 8.4 mg/dL (8.5-10.1); Chloride 103 mmol/L (98-107); Estimated GFR 74.57 (mL/min/1.73m2); Glucose 87 mg/dL (74-106); Potassium 3.7 mmol/L (3.5-5.1); Sodium 140 mmol/L (136-145); Total Protein 7.7 g/dL (6.4-8.2)
[2022-05-31 10:55] LABS: Absolute Eosinophil Count 0.03 10^3/uL (0.0-0.7); Absolute Lymphocyte Count 1.28 10^3/uL (1.2-3.4); Absolute Neutrophil Count 1.48 10^3/uL (1.2-6.7); Atypical Lymphocytes % 2; Bands % 3; Diff Comment Diff Reviewed; Hypochromasia 1+; Polychromasia Present
[2022-06-01 20:39] LABS: Cancer Ag 15-3 108 U/mL (<30)
== END 2022-05-31 03:59 | disposition home or self-care (01) ==
LOC: LBO 03:58
PROVIDERS: PCP Family Medicine; Visit Provider Internal Medicine Hematology & Oncology
DX: C79.51 Secondary malignant neoplasm of bone (principal); C78.00 Secondary malignant neoplasm of unspecified lung; C50.912 Malignant neoplasm of unspecified site of left female breast; Z17.0 Estrogen receptor positive status [ER+]
CPT/HCPCS: 36415; 80053; 86304; 85025; 86300

== ENCOUNTER 2022-06-14 02:28 | Outpatient (CLI) | payer OTHER, SELFPAY ==
[2022-06-14 10:29] LABS: Abs Immature Grans 0.02 10^3/uL (0.0-0.06); HGB 10.7 g/dL (11.2-15.7); MCH 32.1 pg (27.0-33.0); MCHC 32.4 % (32.0-36.0); MCV 99 fL (80-95); MPV 8.9 fL (8.0-11.0); Platelet Count 282 10^3/uL (130-400); RBC 3.33 10^6/uL (3.93-5.22); RDW 20.4 % (11.7-14.6); RDW-SD 72.7 fL; WBC 2.09 10^3/uL (4.4-10.8)
[2022-06-14 10:45] LABS: ALT 51 U/L (14-59); AST 27 U/L (15-37); Albumin 3.3 g/dL (3.4-5.0); Alkaline Phosphatase 242 U/L (46-116); BUN 8 mg/dL (7-18); Bilirubin, Total 0.2 mg/dL (0.2-1.0); CREATININE 0.9 mg/dL (0.55-1.02); Calcium 7.8 mg/dL (8.5-10.1); Chloride 105 mmol/L (98-107); Estimated GFR 74.57 (mL/min/1.73m2); Glucose 98 mg/dL (74-106); Potassium 3.4 mmol/L (3.5-5.1); Sodium 142 mmol/L (136-145); Total Protein 7.5 g/dL (6.4-8.2)
[2022-06-14 10:51] LABS: Anisocytosis 1+
[2022-06-14 10:52] LABS: Microcytosis 1+
[2022-06-14 10:53] LABS: Absolute Lymphocyte Count 0.79 10^3/uL (1.2-3.4); Absolute Neutrophil Count 1.17 10^3/uL (1.2-6.7); Atypical Lymphocytes % 1
[2022-06-14 10:54] LABS: Absolute Eosinophil Count 0.04 10^3/uL (0.0-0.7); Absolute Monocyte Count 0.08 10^3/uL (0.1-0.8)
[2022-06-14 10:55] LABS: Diff Comment Manual Differential
[2022-06-15 19:05] LABS: Cancer Ag 15-3 84 U/mL (<30)
== END 2022-06-14 02:29 | disposition home or self-care (01) ==
LOC: LBO 02:28
PROVIDERS: PCP Family Medicine; Visit Provider Internal Medicine Hematology & Oncology
DX: C79.51 Secondary malignant neoplasm of bone (principal); C50.912 Malignant neoplasm of unspecified site of left female breast
CPT/HCPCS: 36415; 80053; 86304; 85025; 86300

== ENCOUNTER 2022-06-28 03:52 | Outpatient (CLI) | payer OTHER, SELFPAY ==
[2022-06-28 08:32] LABS: HCT 34.1 % (36.0-46.0); HGB 10.9 g/dL (11.2-15.7); MCH 32.7 pg (27.0-33.0); MCV 102 fL (80-95); MPV 8.6 fL (8.0-11.0); Platelet Count 346 10^3/uL (130-400); RBC 3.33 10^6/uL (3.93-5.22); RDW 21.2 % (11.7-14.6); RDW-SD 79.5 fL; WBC 2.21 10^3/uL (4.4-10.8)
[2022-06-28 08:52] LABS: Absolute Basophil Count 0.02 10^3/uL (0.0-0.2); Absolute Eosinophil Count 0.04 10^3/uL (0.0-0.7); Absolute Lymphocyte Count 0.97 10^3/uL (1.2-3.4); Absolute Monocyte Count 0.18 10^3/uL (0.1-0.8); Absolute Neutrophil Count 0.99 10^3/uL (1.2-6.7); Atypical Lymphocytes % 1; Basophilic Stippling Present; Diff Comment Manual Differential; Polychromasia Present
[2022-06-28 08:53] LABS: ALT 37 U/L (14-59); AST 19 U/L (15-37); Albumin 3.4 g/dL (3.4-5.0); Alkaline Phosphatase 187 U/L (46-116); Anion Gap 9.2 mmol/L (3-11); BUN 8 mg/dL (7-18); Bilirubin, Total 0.1 mg/dL (0.2-1.0); CO2 27.8 mmol/L (21.0-32.0); CREATININE 0.9 mg/dL (0.55-1.02); Calcium 8.1 mg/dL (8.5-10.1); Chloride 105 mmol/L (98-107); Estimated GFR 74.57 (mL/min/1.73m2); Glucose 141 mg/dL (74-106); Potassium 3.6 mmol/L (3.5-5.1); Sodium 142 mmol/L (136-145); Total Protein 7.8 g/dL (6.4-8.2)
[2022-06-29 11:55] LABS: Cancer Ag 15-3 71 U/mL (<30)
== END 2022-06-28 03:53 | disposition home or self-care (01) ==
LOC: LBO 03:52
PROVIDERS: PCP Family Medicine; Visit Provider Internal Medicine Hematology & Oncology
DX: C50.912 Malignant neoplasm of unspecified site of left female breast (principal); C79.51 Secondary malignant neoplasm of bone
CPT/HCPCS: 36415; 80053; 86304; 85025; 86300

== ENCOUNTER 2022-07-05 04:01 | Outpatient (CLI) | payer OTHER, SELFPAY ==
[2022-07-05 08:30] LABS: Abs Immature Grans 0.02 10^3/uL (0.0-0.06); HCT 35.7 % (36.0-46.0); HGB 11.4 g/dL (11.2-15.7); MCH 32.9 pg (27.0-33.0); MCHC 31.9 % (32.0-36.0); MCV 103 fL (80-95); MPV 8.8 fL (8.0-11.0); Platelet Count 353 10^3/uL (130-400); RBC 3.47 10^6/uL (3.93-5.22); RDW 20.4 % (11.7-14.6); WBC 3.57 10^3/uL (4.4-10.8)
[2022-07-05 08:52] LABS: ALT 50 U/L (14-59); AST 24 U/L (15-37); Albumin 3.4 g/dL (3.4-5.0); Alkaline Phosphatase 174 U/L (46-116); Anion Gap 7.6 mmol/L (3-11); BUN 9 mg/dL (7-18); Bilirubin, Total 0.1 mg/dL (0.2-1.0); CO2 28.4 mmol/L (21.0-32.0); CREATININE 0.9 mg/dL (0.55-1.02); Calcium 8.4 mg/dL (8.5-10.1); Chloride 106 mmol/L (98-107); Estimated GFR 74.57 (mL/min/1.73m2); Glucose 93 mg/dL (74-106); Potassium 3.3 mmol/L (3.5-5.1); Sodium 142 mmol/L (136-145); Total Protein 7.6 g/dL (6.4-8.2)
[2022-07-05 08:59] LABS: Absolute Lymphocyte Count 1.25 10^3/uL (1.2-3.4); Absolute Monocyte Count 0.36 10^3/uL (0.1-0.8); Absolute Neutrophil Count 1.82 10^3/uL (1.2-6.7); Atypical Lymphocytes % 0; Bands % 0
[2022-07-05 09:00] LABS: Absolute Basophil Count 0.07 10^3/uL (0.0-0.2); Anisocytosis 1+; Diff Comment Manual Differential; Metamyelocytes % 1; Microcytosis 1+; Myelocytes % 1
[2022-07-05 09:01] LABS: Stomatocytes 2+
[2022-07-06 20:34] LABS: Cancer Ag 15-3 68 U/mL (<30)
== END 2022-07-05 04:02 | disposition home or self-care (01) ==
LOC: LBO 04:01
PROVIDERS: PCP Family Medicine; Visit Provider Internal Medicine Hematology & Oncology
DX: C50.912 Malignant neoplasm of unspecified site of left female breast (principal); C78.00 Secondary malignant neoplasm of unspecified lung; C79.51 Secondary malignant neoplasm of bone
CPT/HCPCS: 36415; 80053; 86304; 85025; 86300

== ENCOUNTER 2022-07-30 02:55 | Outpatient (CLI) | payer OTHER, SELFPAY ==
[2022-07-30 09:49] LABS: HCT 33.6 % (36.0-46.0); HGB 10.9 g/dL (11.2-15.7); MCHC 32.4 % (32.0-36.0); MCV 105 fL (80-95); MPV 9.1 fL (8.0-11.0); Platelet Count 262 10^3/uL (130-400); RBC 3.21 10^6/uL (3.93-5.22); RDW 17.6 % (11.7-14.6); RDW-SD 67.7 fL; WBC 2.17 10^3/uL (4.4-10.8)
[2022-07-30 09:57] LABS: ALT 35 U/L (14-59); AST 16 U/L (15-37); Albumin 3.1 g/dL (3.4-5.0); Alkaline Phosphatase 114 U/L (46-116); Anion Gap 8.7 mmol/L (3-11); BUN 12 mg/dL (7-18); Bilirubin, Total 0.1 mg/dL (0.2-1.0); CO2 26.3 mmol/L (21.0-32.0); Calcium 8.6 mg/dL (8.5-10.1); Chloride 105 mmol/L (98-107); Estimated GFR 65.71 (mL/min/1.73m2); Glucose 115 mg/dL (74-106); Potassium 3.6 mmol/L (3.5-5.1); Sodium 140 mmol/L (136-145); Total Protein 7.1 g/dL (6.4-8.2)
[2022-07-30 10:03] LABS: Absolute Basophil Count 0.04 10^3/uL (0.0-0.2); Absolute Eosinophil Count 0.04 10^3/uL (0.0-0.7); Absolute Lymphocyte Count 1.04 10^3/uL (1.2-3.4); Absolute Monocyte Count 0.11 10^3/uL (0.1-0.8); Absolute Neutrophil Count 0.93 10^3/uL (1.2-6.7); Atypical Lymphocytes % 1; Diff Comment Manual Differential; RBC Morphology Normal
[2022-07-31 19:49] LABS: Cancer Ag 15-3 39 U/mL (<30)
== END 2022-07-30 02:56 | disposition home or self-care (01) ==
LOC: LBO 02:55
PROVIDERS: PCP Family Medicine; Visit Provider Internal Medicine Hematology & Oncology
DX: C50.412 Malignant neoplasm of upper-outer quadrant of left female breast (principal); C78.02 Secondary malignant neoplasm of left lung; C79.51 Secondary malignant neoplasm of bone; Z17.0 Estrogen receptor positive status [ER+]
CPT/HCPCS: 36415; 80053; 86304; 85025; 86300

== ENCOUNTER 2022-08-23 13:29 | Outpatient (CLI) | payer OTHER, SELFPAY ==
[2022-08-23 09:18] LABS: HCT 35.1 % (36.0-46.0); HGB 11.4 g/dL (11.2-15.7); MCH 34.5 pg (27.0-33.0); MCHC 32.5 % (32.0-36.0); MCV 106 fL (80-95); MPV 9.1 fL (8.0-11.0); RDW-SD 62.9 fL; WBC 2.21 10^3/uL (4.4-10.8)
[2022-08-23 09:58] LABS: Absolute Basophil Count 0.02 10^3/uL (0.0-0.2); Absolute Eosinophil Count 0.04 10^3/uL (0.0-0.7); Absolute Lymphocyte Count 0.95 10^3/uL (1.2-3.4); Absolute Monocyte Count 0.29 10^3/uL (0.1-0.8); Absolute Neutrophil Count 0.91 10^3/uL (1.2-6.7); Atypical Lymphocytes % 4; Diff Comment Manual Differential; Macrocytosis 2+; Platelet Count 178 10^3/uL (130-400); Polychromasia Present
[2022-08-23 10:01] LABS: ALT 55 U/L (14-59); AST 23 U/L (15-37); Albumin 3.5 g/dL (3.4-5.0); Alkaline Phosphatase 97 U/L (46-116); Anion Gap 7.4 mmol/L (3-11); BUN 16 mg/dL (7-18); Bilirubin, Total 0.2 mg/dL (0.2-1.0); CO2 29.6 mmol/L (21.0-32.0); CREATININE 1.1 mg/dL (0.55-1.02); Calcium 9.2 mg/dL (8.5-10.1); Chloride 103 mmol/L (98-107); Estimated GFR 58.61 (mL/min/1.73m2); Glucose 131 mg/dL (74-106); Potassium 3.9 mmol/L (3.5-5.1); Sodium 140 mmol/L (136-145); Total Protein 7.8 g/dL (6.4-8.2)
[2022-08-25 10:21] LABS: Cancer Ag 15-3 34 U/mL (<30)
== END 2022-08-23 13:30 | disposition home or self-care (01) ==
LOC: LBO 13:30
PROVIDERS: PCP Family Medicine; Visit Provider Internal Medicine Hematology & Oncology
DX: C50.912 Malignant neoplasm of unspecified site of left female breast (principal); C78.00 Secondary malignant neoplasm of unspecified lung; C79.51 Secondary malignant neoplasm of bone
CPT/HCPCS: 36415; 80053; 86304; 85025; 86300

== ENCOUNTER 2022-09-26 03:29 | Outpatient (CLI) | payer OTHER, SELFPAY ==
[2022-09-26 12:46] LABS: Abs Immature Grans 0.01 10^3/uL (0.0-0.06); Absolute Basophil Count 0.06 10^3/uL (0.0-0.2); Absolute Eosinophil Count 0.03 10^3/uL (0.0-0.7); Absolute Lymphocyte Count 1.25 10^3/uL (1.2-3.4); Absolute Monocyte Count 0.27 10^3/uL (0.1-0.8); Absolute Neutrophil Count 1.14 10^3/uL (1.2-6.7); Basophils % 2.2; Eosinophils % 1.1; HCT 34.9 % (36.0-46.0); HGB 11.6 g/dL (11.2-15.7); Immature Grans % 0.4; Lymphocytes % 45.3; MCH 35.4 pg (27.0-33.0); MCHC 33.2 % (32.0-36.0); MCV 106 fL (80-95); MPV 8.7 fL (8.0-11.0); Monocytes % 9.8; Neutrophils % 41.2; Platelet Count 304 10^3/uL (130-400); RBC 3.28 10^6/uL (3.93-5.22); RDW 15.1 % (11.7-14.6); RDW-SD 59.1 fL; WBC 2.76 10^3/uL (4.4-10.8)
[2022-09-26 13:38] LABS: ALT 58 U/L (14-59); AST 34 U/L (15-37); Albumin 3.6 g/dL (3.4-5.0); Alkaline Phosphatase 81 U/L (46-116); Anion Gap 2.6 mmol/L (3-11); BUN 12 mg/dL (7-18); Bilirubin, Total 0.2 mg/dL (0.2-1.0); CO2 31.4 mmol/L (21.0-32.0); CREATININE 1.1 mg/dL (0.55-1.02); Calcium 9.3 mg/dL (8.5-10.1); Chloride 103 mmol/L (98-107); Estimated GFR 58.61 (mL/min/1.73m2); Glucose 98 mg/dL (74-106); Potassium 3.9 mmol/L (3.5-5.1); Sodium 137 mmol/L (136-145); Total Protein 8.2 g/dL (6.4-8.2)
[2022-09-27 17:39] LABS: Cancer Ag 15-3 30 U/mL (<30)
== END 2022-09-26 03:30 | disposition home or self-care (01) ==
LOC: LBO 03:29
PROVIDERS: PCP Family Medicine; Visit Provider Internal Medicine Hematology & Oncology
DX: C50.412 Malignant neoplasm of upper-outer quadrant of left female breast (principal); C78.02 Secondary malignant neoplasm of left lung; C79.51 Secondary malignant neoplasm of bone; Z17.0 Estrogen receptor positive status [ER+]
CPT/HCPCS: 36415; 80053; 86304; 85025; 86300

== ENCOUNTER 2022-10-22 00:37 | Outpatient (CLI) | payer OTHER, SELFPAY ==
--- NOTE | 2022-10-22 | DI.CT_ITS ---
Exam(s) CT CHEST/ABD/PEL W EXAM: CT CHEST/ABD/PEL W CLINICAL HISTORY: CA BREAST METASTATIC,ASSESS TREATMENT RESPONSE,C50.919,C78.00. TECHNIQUE: Imaging Protocol: Axial computed tomography images with coronal and sagittal reformatted images were created and reviewed CONTRAST MATERIAL: Intravenous: Omnipaque 350 Contrast volume:100 ml Oral: Yes. Contrast was also administered for bowel opacification. COMPARISON: CT CT CHEST/ABD/PEL WO from 03/17/2022 FINDINGS: CHEST: LUNGS: There has been significant improvement in the appearance of lung walsh when compared to 03/17. Previously described nodular and patchy infiltrates have mostly resolved. There are some mil d increased markings in the lung walsh which have the appearance of benign atelectasis. There are n o pleural effusions. There are no significant focal findings in the trachea and mainstem bronchi. MEDIASTINUM: There is no hilar nor mediastinal adenopathy. No axillary adenopathy. No supraclavicula r adenopathy. Partially visualized thyroid appears unremarkable. CARDIAC: Heart size is normal. There is no pericardial effusion.Caliber of the thoracic aorta is wit hin normal limits. OSSEOUS: There is a healing fracture of the anterolateral aspect of the left 4th rib. This was evide nt previously. There is also a subacute appearing fracture of the posterior aspect of the right 9th rib. This corresponds to fracture described at this location on the prior study. There are no new r ib fractures evident. There are no lytic nor blastic rib lesions identified. However, there are mul tiple sclerotic lesions/involvement of multiple vertebral bodies now evident, significantly more so t frazier previous and involving both anterior and posterior osseous elements.. Again noted be most promin ent at the T8 and T9 vertebral bodies. However, now quite prominent in multiple other vertebral bodi es including T2, T3, T4, as well as other vertebral bodies in the lumbosacral spine and sternum also involved. Other: Previously described left breast density with central calcification or biopsy marker clip is a gain noted. ABDOMEN: There is no ascites. LIVER: Hepatic steatosis again noted. No discrete focal hepatic lesions. No dilated intrahepatic du cts. GALLBLADDER/BILIARY: Gallbladder is again noted to be surgically absent. CBD is not dilated. PANCREAS: No evidence of pancreatic mass nor dilatation of the pancreatic duct. SPLEEN: Spleen is not enlarged. There are no intrasplenic lesions. Splenic and portal veins are ahmadi nt. ADRENALS: There are no significant adrenal masses. KIDNEYS: There is a nephrostomy tube in the left kidney in satisfactory position with its distal pigt ail component in the renal pelvis and the left kidney is decompressed with no hydronephrosis. There is a small 3 millimeter calculus in the superior pole calyx of the left kidney again noted. No evide nce of obstruction on the opposite-right side. Small cortical cysts measuring 6 millimeters on the r ight noted. No solid renal masses. ABDOMINAL AORTA: Calcified but not enlarged. No para-aortic adenopathy. LYMPH NODES: There is no retroperitoneal nor paraaortic adenopathy. ABDOMINAL WALL: No evidence of significant anterior abdominal wall nor inguinal hernia. GI: There is no evidence of bowel obstruction. PELVIS: LYMPH NODES: There is no intrapelvic nor inguinal adenopathy. GI: No evidence of appendicitis.No evidence of sigmoid diverticulitis. URINARY BLADDER: No calculi nor masses evident REPRODUCTIVE: Uterus and adnexal regions unremarkable. No free fluid. OSSEOUS: Extensive sclerotic metastatic disease in the bones pelvis as increased from prior study. I nvolving vertebral bodies. Iliac bones and sacrum. Also with a lytic component in the right iliac b one and some lateral cortical dehiscence at this level noted. IMPRESSION: 1. Compared to the prior CT scan of March 2022 there has been significant increase in the amount of mu ltilevel blastic skeletal metastases as described above. There is significant increase in amount of vertebrae involved as well as the bones of the pelvis. No obvious acute spinal canal compromise. 2. Rib fracture left 4th and right 9th again noted. No new additional rib fractures. No obvious rib lesions. 3. There has been significant improvement in the appearance of both lung walsh only mild remaining b enign-appearing findings bilaterally and no pleural effusions at this time. No intrathoracic adenopa thy. 4. There is a left-sided nephrostomy tube in satisfactory position in the left kidney and the left ki dney is decompressed. No hydronephrosis. There is a small remaining calculus noted in the upper elva e calyx of the left kidney. Right-side unremarkable. RADIATION DOSE DELIVERED: 2,085.9mGy.cm Total DLP DATA REPOSITORY: All CT scans at this facility are submitted to the National Radiology Data Registry (NRDR) Dose Index Registry (DIR) with the [employer] (ACR). RADIATION OPTIMIZATION: All CT scans at this facility use at least one of these dose optimization te chniques: automated exposure control; mA and/or kV adjustment per patient size (includes targeted exa ms where dose is matched to clinical indication); or iterative reconstruction.
[2022-10-22 13:08] LABS: HCT 31.1 % (36.0-46.0); HGB 10.4 g/dL (11.2-15.7); MCH 35.6 pg (27.0-33.0); MCHC 33.4 % (32.0-36.0); MCV 107 fL (80-95); MPV 9.5 fL (8.0-11.0); Platelet Count 223 10^3/uL (130-400); RBC 2.92 10^6/uL (3.93-5.22); RDW 15.7 % (11.7-14.6); RDW-SD 61.2 fL; WBC 2.32 10^3/uL (4.4-10.8)
[2022-10-22 13:18] LABS: ALT 61 U/L (14-59); AST 41 U/L (15-37); Albumin 3.6 g/dL (3.4-5.0); Alkaline Phosphatase 68 U/L (46-116); Anion Gap 7.6 mmol/L (3-11); BUN 9 mg/dL (7-18); Bilirubin, Total 0.2 mg/dL (0.2-1.0); CO2 29.4 mmol/L (21.0-32.0); Calcium 8.6 mg/dL (8.5-10.1); Chloride 102 mmol/L (98-107); Estimated GFR 65.71 (mL/min/1.73m2); Glucose 99 mg/dL (74-106); Potassium 3.9 mmol/L (3.5-5.1); Sodium 139 mmol/L (136-145); Total Protein 7.4 g/dL (6.4-8.2)
[2022-10-22 13:21] LABS: Absolute Basophil Count 0.02 10^3/uL (0.0-0.2); Absolute Lymphocyte Count 1.07 10^3/uL (1.2-3.4); Absolute Monocyte Count 0.09 10^3/uL (0.1-0.8); Absolute Neutrophil Count 1.14 10^3/uL (1.2-6.7); Atypical Lymphocytes % 1; Diff Comment Manual Differential; Macrocytosis 1+; Polychromasia Present
[2022-10-22] MEDS: Omnipaque 350 MG/ML 100 ML BTL IJ (15:06)
[2022-10-22] MEDS: Normal Saline - Diluent 50 ML VIAL IJ (15:07)
[2022-10-24 19:20] LABS: Cancer Ag 15-3 23 U/mL (<30)
== END 2022-10-22 00:57 ==
LOC: DI 00:38
PROVIDERS: PCP Family Medicine; Visit Provider Internal Medicine Hematology & Oncology
DX: S22.31XA Fracture of one rib, right side, initial encounter for closed fracture (principal); S22.32XA Fracture of one rib, left side, initial encounter for closed fracture; C78.00 Secondary malignant neoplasm of unspecified lung; C50.912 Malignant neoplasm of unspecified site of left female breast
CPT/HCPCS: 74177; 80053; 86304; 71260; 85025; 86300; J3490

== ENCOUNTER 2022-11-22 02:42 | Outpatient (CLI) | payer OTHER, SELFPAY ==
[2022-11-22 13:48] LABS: Abs Immature Grans 0.03 10^3/uL (0.0-0.06); Absolute Basophil Count 0.08 10^3/uL (0.0-0.2); Absolute Eosinophil Count 0.03 10^3/uL (0.0-0.7); Absolute Lymphocyte Count 1.04 10^3/uL (1.2-3.4); Absolute Monocyte Count 0.42 10^3/uL (0.1-0.8); Absolute Neutrophil Count 1.03 10^3/uL (1.2-6.7); Eosinophils % 1.1; HCT 32.9 % (36.0-46.0); HGB 10.6 g/dL (11.2-15.7); Immature Grans % 1.1; Lymphocytes % 39.5; MCH 35.8 pg (27.0-33.0); MCHC 32.2 % (32.0-36.0); MCV 111 fL (80-95); MPV 8.8 fL (8.0-11.0); Neutrophils % 39.3; Nucleated RBC 1.1 % (0.0-0.3); Platelet Count 223 10^3/uL (130-400); RBC 2.96 10^6/uL (3.93-5.22); RDW 14.9 % (11.7-14.6); RDW-SD 61.2 fL; WBC 2.63 10^3/uL (4.4-10.8)
[2022-11-22 14:03] LABS: ALT 52 U/L (14-59); AST 28 U/L (15-37); Albumin 3.4 g/dL (3.4-5.0); Alkaline Phosphatase 62 U/L (46-116); Anion Gap 3.7 mmol/L (3-11); BUN 7 mg/dL (7-18); Bilirubin, Total 0.1 mg/dL (0.2-1.0); CO2 33.3 mmol/L (21.0-32.0); Calcium 8.5 mg/dL (8.5-10.1); Chloride 105 mmol/L (98-107); Estimated GFR 65.71 (mL/min/1.73m2); Glucose 93 mg/dL (74-106); Sodium 142 mmol/L (136-145); Total Protein 7.3 g/dL (6.4-8.2)
[2022-11-26 20:35] LABS: Cancer Ag 15-3 21 U/mL (<30)
== END 2022-11-22 02:43 | disposition home or self-care (01) ==
LOC: LBO 02:42
PROVIDERS: PCP Family Medicine; Visit Provider Internal Medicine Hematology & Oncology
DX: C50.412 Malignant neoplasm of upper-outer quadrant of left female breast (principal); C78.02 Secondary malignant neoplasm of left lung; C79.51 Secondary malignant neoplasm of bone; Z17.0 Estrogen receptor positive status [ER+]
CPT/HCPCS: 36415; 80053; 86304; 85025; 86300

== ENCOUNTER 2022-12-20 01:34 | Outpatient (CLI) | payer OTHER, SELFPAY ==
[2022-12-20 13:37] LABS: Abs Immature Grans 0.01 10^3/uL (0.0-0.06); Absolute Basophil Count 0.05 10^3/uL (0.0-0.2); Absolute Eosinophil Count 0.04 10^3/uL (0.0-0.7); Absolute Lymphocyte Count 1.07 10^3/uL (1.2-3.4); Absolute Monocyte Count 0.35 10^3/uL (0.1-0.8); Absolute Neutrophil Count 1.07 10^3/uL (1.2-6.7); Basophils % 1.9; Eosinophils % 1.5; HCT 33.4 % (36.0-46.0); HGB 11.2 g/dL (11.2-15.7); Immature Grans % 0.4; Lymphocytes % 41.3; MCH 36.5 pg (27.0-33.0); MCHC 33.5 % (32.0-36.0); MCV 109 fL (80-95); Monocytes % 13.5; Neutrophils % 41.4; Platelet Count 210 10^3/uL (130-400); RBC 3.07 10^6/uL (3.93-5.22); RDW 14.6 % (11.7-14.6); RDW-SD 58.7 fL; WBC 2.59 10^3/uL (4.4-10.8)
[2022-12-20 13:57] LABS: Macrocytosis 1+; Polychromasia Present
[2022-12-20 14:18] LABS: ALT 86 U/L (14-59); AST 44 U/L (15-37); Albumin 3.9 g/dL (3.4-5.0); Alkaline Phosphatase 58 U/L (46-116); Anion Gap 4.6 mmol/L (3-11); BUN 12 mg/dL (7-18); Bilirubin, Total 0.2 mg/dL (0.2-1.0); CO2 31.4 mmol/L (21.0-32.0); Calcium 9.4 mg/dL (8.5-10.1); Chloride 105 mmol/L (98-107); Estimated GFR 65.71 (mL/min/1.73m2); Glucose 103 mg/dL (74-106); Potassium 4.3 mmol/L (3.5-5.1); Sodium 141 mmol/L (136-145); Total Protein 7.6 g/dL (6.4-8.2)
[2022-12-21 18:44] LABS: Cancer Ag 15-3 29 U/mL (<30)
== END 2022-12-20 01:35 | disposition home or self-care (01) ==
LOC: LBO 01:34
PROVIDERS: PCP Family Medicine; Visit Provider Internal Medicine Hematology & Oncology
DX: C50.412 Malignant neoplasm of upper-outer quadrant of left female breast (principal); C78.02 Secondary malignant neoplasm of left lung; C79.51 Secondary malignant neoplasm of bone; Z17.0 Estrogen receptor positive status [ER+]
CPT/HCPCS: 36415; 80053; 86304; 85025; 86300

== ENCOUNTER 2023-01-02 18:54 | Emergency (ER) | payer OTHER, SELFPAY ==
[2023-01-02] VITALS (43 sets, daily range): BP systolic 79–130; BP diastolic 56–91; PULSE 90–135; RESP 10–26; TEMP 36.9; O2SAT 88–95
--- NOTE | 2023-01-02 19:00 | DI.CT_ITS ---
Exam(s) CT HEAD WO EXAM: CT HEAD WO CLINICAL HISTORY: ams. TECHNIQUE: Imaging Protocol: Axial computed tomography images with coronal and sagittal reformatted images were created and reviewed COMPARISON: No exams were available for comparison FINDINGS: Ventricles and Extra axial spaces: Normal in size and morphology for the patient's age. Hemorrhage: None. Cerebral parenchyma: There is no acute territorial infarct. Midline shift: None. Brainstem/Cerebellum: Normal. Calvarium: Normal. Visualized Paranasal sinuses/Mastoids: Clear. Soft Tissues: Unremarkable. IMPRESSION: No acute intracranial process. RADIATION DOSE DELIVERED: 720.8mGy.cm Total DLP DATA REPOSITORY: All CT scans at this facility are submitted to the National Radiology Data Registry (NRDR) Dose Index Registry (DIR) with the [employer] (ACR). RADIATION OPTIMIZATION: All CT scans at this facility use at least one of these dose optimization te chniques: automated exposure control; mA and/or kV adjustment per patient size (includes targeted exa ms where dose is matched to clinical indication); or iterative reconstruction.
--- NOTE | 2023-01-02 19:00 | DI.CT_ITS ---
Exam(s) CT CHEST PE CTA EXAM: CT CHEST PE CTA CLINICAL HISTORY: syncope? hypoxia, tachy. TECHNIQUE: Imaging Protocol: Axial CT angiography was performed with multi-slice acquisition and mu lti-planar and/or 3D reconstructions. CONTRAST MATERIAL: Intravenous: Omnipaque 350 contrast volume:99 mL COMPARISON: CT CT CHEST/ABD/PEL W from 10/22/2022 FINDINGS: Tracheobronchial tree: Patent where visualized. Pulmonary parenchyma: Emphysematous changes are seen in the lungs. There are 2 new nodules seen in t he anterior aspect of the left upper lobe. The larger measures 7 mm. The smaller measures 5 mm. Th ere are dependent atelectatic changes in the lung bases. Pulmonary Arteries: There is again seen a filling defect in a segmental branch of the pulmonary arter ies to the left lower lobe. This is unchanged. There is however a new filling defect in a 2nd segme ntal branch of the pulmonary arteries in the left lower lobe. With this was not present on the prior examination. (Series 8, image 287). Mediastinum and Janna: No dominant adenopathy or fluid collection. The esophagus is unremarkable. Th ere is a small hiatal hernia. Visualized thyroid gland: Unremarkable. Pleura: No effusion or pneumothorax. Heart: The heart is not dilated. Coronary artery calcifications are present. No pericardial effusion . The RV to LV ratio is less than 1. Aorta: Thoracic aorta non-dilated. No evidence of dissection. Atherosclerosis is present. Upper abdomen: There is diffuse fatty infiltration of the liver. Status post cholecystectomy. Ther e is a nonobstructing left renal calculus. There is mild prominence of the left renal pelvis which i s incompletely imaged. Soft tissues: Unremarkable. Bones: Within normal limits for the patient's age.There are bilateral rib fractures which are old. S ome of which are nonunited. Sclerotic metastases are present. There is stable thoracic compression fracture deformities. IMPRESSION: 1. There is an old embolus in a segmental branch of the left lower lobe. There is also now a differe nt segmental branch of the left lower lobe with with a new embolus present. There is no evidence of right heart strain. 2. Findings of osseous metastatic disease with stable compression vertebral fractures. 3. Two new nodules in the left upper lobes suspicious for metastases. 4. No evidence of aortic dissection or aneurysm. 5. Prominence of the left renal pelvis which is incompletely imaged on this examination. The nephrou reteral stents appear to have been removed. This may represent hydronephrosis. Follow-up as clinica lly appropriate. 6. Findings were discussed with Dr. Sahu at 8:35 a.m. on 01/03/2023. RADIATION DOSE DELIVERED: 594.75mGy.cm Total DLP DATA REPOSITORY: All CT scans at this facility are submitted to the National Radiology Data Registry (NRDR) Dose Index Registry (DIR) with the [employer] (ACR). RADIATION OPTIMIZATION: All CT scans at this facility use at least one of these dose optimization te chniques: automated exposure control; mA and/or kV adjustment per patient size (includes targeted exa ms where dose is matched to clinical indication); or iterative reconstruction.
--- NOTE | 2023-01-02 19:00 | RT.EKG_ITS ---
APPROVED REPORT Exam: Resting ECG Reason for Exam: tachy Patient Location: E HR:113 bpm ECG Measurements Heart Rate 113 AXIS MN 149 P 50 QRSd 66 QRS -18 QT 351 T 48 QTc 481 Conclusion Sinus tachycardia...rate> 99 Low voltage, precordial leads...precordial leads <1.0mV Nonspecific T abnormalities, anterior leads...T <-0.10mV, V2-V4 sinus tach, left axis, partial RBBB pattern V1 V2, anterior lead t wave inversion
--- NOTE | 2023-01-02 19:12 | W.ED.GENAD ---
Discharge Plan Discharge Details Chief Complaint: Fall/Non TraumaCriteria Primary Care Provider: Azucena Ascencio ED Provider: Keyon Griffith Home Meds and New Rx's Prescriptions: No Action acetaminophen 500 mg capsule 1,000 mg PO TID PRN ibuprofen [Motrin IB] 200 mg tablet 600 mg PO TID albuterol sulfate 90 mcg/actuation aerosol powdr breath activated 1 - 2 inh IH Q4H PRN (Reason: bronchospasm) Qty: 2 11RF budesonide-formoterol [Symbicort] 80-4.5 mcg/actuation Hfa Aerosol Inhaler 2 puff inhalation BID Qty: 10.2 0RF Medical Decision Making 57-year-old female stage IV breast cancer presents with altered mental status, was in driveway with and he turned around to find her on the ground, patient with altered mental status alert to self and place but not time, moving all extremities following commands cranial nerves intact speech normal however slow, normal blood sugar in field per EMS, noted to be tachycardic to the 120s and relatively hypoxic to 88% on room air, patient does have a history of smoking however does not use supplemental oxygen at home. Must consider seizure in this instance brain mets versus syncope related to PE versus electrolyte abnormality versus infectious etiology versus toxicologic process versus vasovagal versus orthostasis versus ACS lower suspicion for CVA. Screening labs imaging EKG light fluids close reassessment disposition pending reassessment and results 21: 10 patient had witnessed seizure, altered mental status rightward gaze facial cyanosis, rolled onto her side nasal cannula nasal trumpet applied, given 1 mg of Ativan, currently seizure is abated. Loading with Keppra. Will be admitted for recurrent seizures. 22: 09 patient resting comfortably now arousable to voice touch, opening eyes spontaneously, tolerating secretions maintaining airway. Hemodynamically stable. Awaiting callback from [facility] neurology for consideration for transfer for continuous EEG. 22: 35 have discussed case with neurologist at [facility] who recommends continue with Keppra, and endorses that there may be bed availability tomorrow morning and they will call back with potential availability. Given no neurology in house inpatient team uncomfortable excepting patient without EEG capabilities and in-house neurology. I have called [facility] neurology team who recommends adding a second bolus of Keppra and obtaining MRI in the morning however they will not be excepting patient for transfer. As patient cannot be discharged home in her current clinical state as she requires further medication and diagnostics I will call surrounding facilities to see if there are bed availability's with neurology capabilities. Patient's mental status continues to improve HPI General Date/Time Provider Initiated Documentation: 01/02/23 19:00. HPI Narrative: 57-year-old female history of stage IV breast cancer brought in for altered mental status, was in the local company truck driver with her he turned around to find her on the ground, believes she may have had a seizure. No seizure history per EMS. Patient unclear of surrounding events that brought her to the hospital. Denies chest pain shortness of breath nausea or vomiting. Fingerstick normal in the field. Related Data Home Medications Medication Instructions Recorded Confirmed acetaminophen 500 mg capsule 1,000 mg PO TID PRN 05/14/18 03/17/22 ibuprofen 200 mg tablet (Motrin IB) 600 mg PO TID 05/14/18 03/17/22 albuterol sulfate 90 mcg/actuation 1 - 2 inh inhalation Q4H PRN 09/27/21 03/17/22 breath activated powder inhaler bronchospasm #2 ea budesonide-formoterol HFA 80 2 puff inhalation BID #10.2 grams 03/19/22 mcg-4.5 mcg/actuation aerosol inhaler (Symbicort) Previous Rx's Medication Instructions Recorded albuterol sulfate 90 mcg/actuation 1 - 2 inh inhalation Q4H PRN 09/27/21 breath activated powder inhaler bronchospasm #2 ea budesonide-formoterol HFA 80 2 puff inhalation BID #10.2 grams 03/19/22 mcg-4.5 mcg/actuation aerosol inhaler (Symbicort) Allergies Allergy/AdvReac Type Severity Reaction Status Date / Time codeine AdvReac Mild N/V Verified 03/17/22 10:06 oxycodone AdvReac Mild N/V Verified 03/17/22 10:06 General Stated Complaint: Fall/Non TraumaCriteria ADAM: 3 Review of Systems Narrative: Review of Systems Constitutional: negative Eyes: negative ENT: negative Cardiovascular: negative Respiratory: negative Gastrointestinal: negative : negative Musculoskeletal: negative Skin: negative Neurologic: AMS Psych: negative PFSH All Active Problems (Updated 05/11/22 @ 00:05 by BONG IZAGUIRRE) Back pain (Acute) History of left breast cancer (Acute ~2014) 10/12/14 [facility] [place] bx: invasive ductal ca LEFT breast; recurrent with pulmonary mets, bone mets, adenopathy with left kidney obstruction. Pulmonary lesion (Acute) Lytic bone lesions on xray (Acute) Hydronephrosis, left (Acute) Medical History Endometriosis (09/16/14) Fracture of left humerus (09/16/14) History of left breast cancer (~2014) 10/12/14 [facility] [place] bx: invasive ductal ca LEFT breast Sciatica of right side (09/16/14) Surgical History S/P breast lumpectomy Status post cholecystectomy (09/16/14) Family History Mother Emphysema/COPD Father Heart disease Sister Neoplasm MELANOMA Brother No problems noted. Grandfather No problems noted. Grandfather No problems noted. Grandmother No problems noted. Grandmother No problems noted. Social History Smoking/Tobacco Use Status: Former Tobacco Use Second Hand Exposure: Yes Smoking risk assessment performed?: Yes Alcohol Intake: current Alcohol Intake frequency: other Drug use: Never Substance use type: does not use Household members: spouse Number of Children: 2 number of grandchildren: 2 current occupation: works in kitchen at [employer] Pets and animals: Yes Pets and animals: cat(s) and dog(s) What type of physical activity do you participate in: none Do you feel safe at home: Yes Do you feel safe in your relationship?: Yes Exam Narrative Exam Narrative: Physical Examination General: cooperative, resting comfortably, no acute distress HEENT: normocephalic, atraumatic; PERRL, EOM intact, conjunctiva normal; no nasal discharge; moist mucous membranes, oral and pharyngeal mucosa normal, tolerating secretions Neck: supple, trachea midline; full ROM Chest: normal to inspection Respiratory: normal respiratory effort, speaking in full sentences, clear to auscultation, no wheezing, rales or rhonchi Cardiac: Tachycardia, regular rhythm, S1S2 intact, no murmurs rubs or gallops GI: abdomen soft, non-tender, non-distended; no palpable mass or hepatosplenomegaly Skin: no lesions, rashes or trauma appreciated Neuro: Alert to self and place unclear of date, moving all extremities 5 out of 5 strength upper and lower extremities cranial nerves II through XII intact, normal speech however slow Extremities: No signs of trauma Psych: Appropriate mood and affect Course Vital Signs Vital signs: Vital Signs Temperature 36.9 C 01/02/23 18:59 Pulse 123 H 01/02/23 18:59 Respiratory Rate 18 01/02/23 18:59 Blood Pressure 106/70 01/02/23 18:59 Pulse Oximetry 88 L 01/02/23 18:59 Temperature 36.9 C 01/02/23 18:59 Temperature Source Oral 01/02/23 18:59 Pulse 123 H 01/02/23 18:59 Respiratory Rate 18 01/02/23 18:59 Respiratory Effort Normal, Non-Labored 01/02/23 18:59 Blood Pressure 106/70 01/02/23 18:59 Pulse Oximetry 95 01/02/23 19:00 Oxygen Delivery Method Nasal Cannula 01/02/23 19:00 Oxygen Flow Rate 2 01/02/23 19:00
[2023-01-02] MEDS: Normal Saline 500 ML 1000 ML IV (19:51)
[2023-01-02 19:57] LABS: HCT 36.9 % (36.0-46.0); HGB 12.4 g/dL (11.2-15.7); MCH 36.8 pg (27.0-33.0); MCHC 33.6 % (32.0-36.0); MCV 110 fL (80-95); MPV 9.3 fL (8.0-11.0); Platelet Count 212 10^3/uL (130-400); RBC 3.37 10^6/uL (3.93-5.22); RDW 14.1 % (11.7-14.6); RDW-SD 56.9 fL; WBC 2.01 10^3/uL (4.4-10.8)
[2023-01-02] MEDS: Normal Saline Flush 10 ML SYR IVP (20:16)
[2023-01-02 20:20] LABS: Absolute Basophil Count 0.06 10^3/uL (0.0-0.2); Absolute Eosinophil Count 0.02 10^3/uL (0.0-0.7); Absolute Lymphocyte Count 0.64 10^3/uL (1.2-3.4); Absolute Neutrophil Count 1.19 10^3/uL (1.2-6.7)
[2023-01-02 20:21] LABS: Anisocytosis 1+; Diff Comment Manual Differential; Macrocytosis 1+
[2023-01-02 20:22] LABS: PTT Activated 18.7 sec (21.5-31.9)
[2023-01-02 20:26] LABS: ALT 81 U/L (14-59); AST 44 U/L (15-37); Albumin 3.7 g/dL (3.4-5.0); Alkaline Phosphatase 57 U/L (46-116); Anion Gap 9.2 mmol/L (3-11); BUN 12 mg/dL (7-18); Bilirubin, Total 0.3 mg/dL (0.2-1.0); CO2 26.8 mmol/L (21.0-32.0); CREATININE 1.3 mg/dL (0.55-1.02); Calcium 9.6 mg/dL (8.5-10.1); Chloride 105 mmol/L (98-107); Creatine Kinase 371 U/L (26-192); ETHANOL BLOOD < 3.0 mg/dL (<10); Estimated GFR 47.96 (mL/min/1.73m2); Glucose 111 mg/dL (74-106); NT-proBNP 50 pg/mL (<300); Potassium 3.8 mmol/L (3.5-5.1); Sodium 141 mmol/L (136-145); TSH (W/Ref FT4) 2.74 uIU/mL (0.36-3.74); Total Protein 7.7 g/dL (6.4-8.2); Troponin I < 50 ng/L (<or=60)
[2023-01-02 20:35] LABS: Salicylate < 2.8 mg/dL (<2.8)
[2023-01-02 20:36] LABS: Acetaminophen < 2 ug/mL (10-30)
[2023-01-02] MEDS: Normal Saline - Diluent 50 ML VIAL IJ (20:36)
[2023-01-02] MEDS: Omnipaque 350 MG/ML 100 ML BTL IJ (20:37)
--- NOTE | 2023-01-02 20:38 | DI.VRAD_ITS ---
PROCEDURE INFORMATION: Exam: CT Head Without Contrast Exam date and time: 01/02/2023 8:30 PM Age: 57 years old Clinical indication: Altered mental status/memory loss; Patient HX: AMS TECHNIQUE: Imaging protocol: Computed tomography of the head without contrast. Radiation optimization: All CT scans at this facility use at least one of these dose optimization techniques: automated exposure control; mA and/or kV adjustment per patient size (includes targeted exams where dose is matched to clinical indication); or iterative reconstruction. COMPARISON: No relevant prior studies available. FINDINGS: Brain: Mild volume loss. No hemorrhage. Unremarkable white matter. No mass effect. Cerebral ventricles: No ventriculomegaly. Paranasal sinuses: Visualized sinuses are unremarkable. No fluid levels. Mastoid air cells: Visualized mastoid air cells are well aerated. Bones/joints: Unremarkable. No acute fracture. Soft tissues: Unremarkable. IMPRESSION: No acute intracranial abnormality. Dictated and Authenticated by: Pelon Boss MD. Ordering:ITALO Ta MD
--- NOTE | 2023-01-02 20:53 | DI.VRAD_ITS ---
PROCEDURE INFORMATION: Exam: CTA Chest With Contrast Exam date and time: 01/02/2023 8:33 PM Age: 57 years old Clinical indication: Other: Syncope, hypoxia, tachy TECHNIQUE: Imaging protocol: Computed tomographic angiography of the chest with contrast. 3D rendering (Not supervised by radiologist): MIP and/or 3D reconstructed images were created by the technologist. Contrast material: OMNIPAQUE 350; Contrast volume: 100 ml; Contrast route: INTRAVENOUS (IV); COMPARISON: CT CHEST/ABD/PEL W 10/22/2022 3:05 PM FINDINGS: Pulmonary arteries: No pulmonary emboli. Aorta: No aortic aneurysm. No aortic dissection. Lungs: Minimal right basilar subsegmental atelectasis No consolidation. No masses. Pulmonary nodules observed measuring up to 5-6 mm in the left upper lobe anteriorly with possible minimal spiculated margin. Pleural spaces: Unremarkable. No pneumothorax. No pleural effusion. Heart: Unremarkable. No cardiomegaly. No pericardial effusion. Lymph nodes: Unremarkable. No enlarged lymph nodes. Bones/joints: Unremarkable. No acute fracture. Soft tissues: Unremarkable. Left renal calcification and mild left hydronephrosis. Prior cholecystectomy. Fatty infiltration of the liver IMPRESSION: No pulmonary emboli observed Mild left hydronephrosis suspected. Left renal cortical calcification versus calculus Nodules bilaterally as described. Findings may be infectious/inflammatory in etiology. Neoplasm not excluded Dictated and Authenticated by: Pelon Boss MD. Ordering:ITALO Ta MD
[2023-01-02] MEDS: LORazepam 2 MG/ML VIAL 1 MG IVP (21:05)
[2023-01-02] MEDS: levETIRAcetam 1,000 MG in Normal Saline 100 ML 400 MG IVPB ×2 (21:25→23:03)
[2023-01-02] MEDS: Ondansetron 4 MG/2 ML VIAL IVP (21:32)
[2023-01-02 21:37] LABS: Bilirubin Negative (Negative); Blood Negative (Negative); Clarity Clear (Clear); Glucose Negative (Negative); Ketones Negative (Negative); Leukocyte Esterase Trace (Negative); Nitrite Negative (Negative); Urobilinogen 0.2 mg/dL (Up to 0.2); pH 5.5 (5-8)
[2023-01-02] MEDS: Normal Saline 1,000 ML 1000 ML IV (21:37)
[2023-01-02 21:47] LABS: Bacteria Rare HPF (Negative); C & S Indicated? Yes; Casts 0-2 Hyaline LPF (Negative); Crystals Negative HPF (Negative); Epithelial Cells Rare HPF (Negative); Mucus Negative (Negative); Other Cells Rare Transitional (Negative); RBC 0-2 HPF (0-2)
[2023-01-02 21:52] LABS: *AMPHETAMINES SCREEN URINE Negative (Negative); *BARBITURATES SCREEN URINE Negative (Negative); *BENZODIAZEPINES SCREEN URINE Negative (Negative); Cannabinoids THC Negative (Negative); Cocaine Screen,Urine Negative (Negative); METHADONE URINE SCREEN Negative (Negative); OPIATES URINE SCREEN Negative (Negative); Tricyclic Antidepressants Negative (Negative)
[2023-01-02 23:31] LABS: Troponin I < 50 ng/L (<or=60)
[2023-01-03] VITALS (7 sets, daily range): BP systolic 117–127; BP diastolic 81–88; PULSE 109–113; RESP 14–21
[2023-01-03 00:06] LABS: COVID-19 PCR Negative (Negative); Source Nasal/Nares
--- NOTE | 2023-01-03 00:09 | ED.PROG_ITS ---
Date of service: 01/03/23 Time of Service: 00:10 Medical Decision Making Case was signed out to me by my colleague Dr. Michell Hendrickson. I did assume care of the case at 11:30 PM. Please refer to his HPI, physical exam, assessment and plan. Patient presented earlier today for seizure. She had 2 episodes of seizu re, which were broken with Ativan. She was loaded with 2 g of Keppra here in the emergency department. CT scan that was performed prior to my arrival demonstrate no acute process intracranially. CT scan of the chest demonstrates no evidence of pulmonary embolism, there is mild left hydronephrosis that is suspected, but no ureteral obstructing etiology. There is nodules that are noted which could be infectious inflammatory or neoplasm. Concern for potential neoplasm. Urinalysis demonstrated relatively benign UA. There were some trace leuk esterase, but negative nitrate. Renal function demonstrates a creatinine of 1.3, CK of 371, troponin that was normal, thyroid function that was normal, no white count. Hemoglobin levels are stable. Out of an abundance of precaution we will treat the urine with a 2 g dose of ceftriaxone. She has no allergies to penicillins. Patient was already treated with Ativan, and loaded with Keppra/2 g. Work-up was already completed, neurology had been consulted, and the plan was for admission. However no neurology or EEG is available this week at [facility]. Dr. Michell Hendrickson discussed the case at length with Dr. Ha, and the hospitalist team recommended transfer to another facility. Multiple discussions were had about this and the hospitalist medical team was clear that the patient would not be admitted at this time to [facility], but if a consult was requested they would be happy to consult for the medical care of the patient in the ED, but did request that the patient stay in the ED versus transfer. My colleague reached out to [facility], [facility], [facility], [facility], [facility], [facility], [facility] and woman, [facility], [facility], all of which were unable to accept the patient. I then specifically reached out myself again to both [facility] and the [facility] and asked if they had any availability in their outlying facilities to receive the patient for transfer. The answer again was no. I did go and reassess the patient myself. She is easily arousable. She was sleeping comfortably. When I did awaken her she was interactive, talkative, and demonstrated no focal neurologic deficits. At this time I did discuss with the patient the next steps. I contacted the family as well. I discussed with them the current status of transfer, discussed with them options that were further from here which would potentially put strain on the family. They did agree for transfer, and the made it unequivocally clear that he was fine with a further distance transfer, understanding the potential risks as well. He specifically stated that money is not an option, and she can be transferred states away if needed. We did reach out to [place], and discussed the case with them. They agree for transfer. They accept the patient for transfer. Patient remained stable at this time and will be sent with the dog breeder crew. Reassessment at time of transfer shows no concerning abnormalities currently. excepts the patient for transfer. I have extensively reviewed the treatment plan with the patient. I have addressed all patient concerns at this time. All parties demonstrate verbal understanding and agreement with our assessment and plan at this time. The documentation in this chart was dictated using [employer] dictation software. Please excuse any dictation errors. At time of transfer the patient was reassessed and continued to demonstrate No signs of acute respiratory distress requiring intubation, hemodynamic instability requiring pressor support, or rapidly declining mental status. Abbreviated [facility] history: Patient is onpalbociclib 100mg, letrozole 2.5 mg, Symbicort, albuterol. 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 She had her old nephrostomy tube pulled. She has been on Xgeva, femora, and Ibrance. FINDINGS: Brain: Mild volume loss. No hemorrhage. Unremarkable white matter. No mass effect. Cerebral ventricles: No ventriculomegaly. Paranasal sinuses: Visualized sinuses are unremarkable. No fluid levels. Mastoid air cells: Visualized mastoid air cells are well aerated. Bones/joints: Unremarkable. No acute fracture. Soft tissues: Unremarkable. IMPRESSION: No acute intracranial abnormality. Thank you for allowing us to participate in the care of your patient. Dictated and Authenticated by: Pelon Boss MD 01/02/2023 8:37 PM Eastern Time ([place] & [place] FINDINGS: Pulmonary arteries: No pulmonary emboli. Aorta: No aortic aneurysm. No aortic dissection. Lungs: Minimal right basilar subsegmental atelectasis No consolidation. No masses. Pulmonary nodules observed measuring up to 5-6 mm in the left upper lobe anteriorly with possible minimal spiculated margin. Pleural spaces: Unremarkable. No pneumothorax. No pleural effusion. Heart: Unremarkable. No cardiomegaly. No pericardial effusion. Lymph nodes: Unremarkable. No enlarged lymph nodes. Bones/joints: Unremarkable. No acute fracture. Soft tissues: Unremarkable. Left renal calcification and mild left hydronephrosis. Prior cholecystectomy. Fatty infiltration of the live IMPRESSION: No pulmonary emboli observed Mild left hydronephrosis suspected. Left renal cortical calcification versus calculus Nodules bilaterally as described. Findings may be infectious/inflammatory in etiology. Neoplasm not excluded Thank you for allowing us to participate in the care of your patient. Dictated and Authenticated by: Pelon Boss MD 01/02/2023 8:52 PM Eastern Time ([place] & [place] Sign Out Sign Out Data: Sign Out Comment: new onset seizures, hx of metastatic breast cancer; attempting to find facility with EEG and neurology Last updated by Keyon Griffith MD at 01/02/23 22:49 Discharge Plan Disposition Patient Disposition: Transfer-Acute Inpatient Care Specific Acute Inpt Facility: Other Condition: Improving Discharge Details Clinical Impression: New onset seizure, UTI (urinary tract infection) Primary Care Provider: Azucena Ascencio ED Provider: Chino Polanco Home Meds and New Rx's Prescriptions: No Action acetaminophen 500 mg capsule 1,000 mg PO TID PRN ibuprofen [Motrin IB] 200 mg tablet 600 mg PO TID albuterol sulfate 90 mcg/actuation aerosol powdr breath activated 1 - 2 inh IH Q4H PRN (Reason: bronchospasm) Qty: 2 11RF budesonide-formoterol [Symbicort] 80-4.5 mcg/actuation Hfa Aerosol Inhaler 2 puff inhalation BID Qty: 10.2 0RF
[2023-01-03] MEDS: cefTRIAXone 2 GM/50 ML BAG IVPB (00:35)
--- NOTE | 2023-01-03 08:37 | ED.PROG_ITS ---
Date of service: 01/03/23 Time of Service: 08:37 Medical Decision Making I received a call from Dr. Carranza from radiology who had over read this patient's CT scan and noted a left lower lobe PE which was in addition to an old PE. Per chart review patient was transferred to [facility]. I have asked [facility] community health planning director Elana to have Dr. Carranza's formal report faxed to [facility]. Sign Out Sign Out Data: Sign Out Comment: new onset seizures, hx of metastatic breast cancer; attempting to find facility with EEG and neurology Last updated by Keyon Griffith MD at 01/02/23 22:49 Discharge Plan Disposition Patient Disposition: Transfer-Acute Inpatient Care Specific Acute Inpt Facility: Other Condition: Improving Discharge Details Clinical Impression: New onset seizure, UTI (urinary tract infection) Primary Care Provider: Azucena Ascencio ED Provider: Chino Polanco Home Meds and New Rx's Prescriptions: No Action acetaminophen 500 mg capsule 1,000 mg PO TID PRN ibuprofen [Motrin IB] 200 mg tablet 600 mg PO TID albuterol sulfate 90 mcg/actuation aerosol powdr breath activated 1 - 2 inh IH Q4H PRN (Reason: bronchospasm) Qty: 2 11RF budesonide-formoterol [Symbicort] 80-4.5 mcg/actuation Hfa Aerosol Inhaler 2 puff inhalation BID Qty: 10.2 0RF Discharge Data Discharge Date/Time-TO BE ENTERED AT DEPARTURE: 01/03/23 00:50
--- NOTE | 2023-01-03 09:23 | NUR.NOTE ---
Nursing Note: Per Dr. Sahu request I faxed the CTA chest report with new findings to [facility].
== END 2023-01-03 00:50 | disposition short-term general hospital (02) ==
PROVIDERS: Emergency Medicine; Emergency Provider Student in an Organized Health Care Education/Training Program; PCP Family Medicine
DX: R56.9 Unspecified convulsions (principal); N39.0 Urinary tract infection, site not specified; R91.8 Other nonspecific abnormal finding of lung field; R79.89 Other specified abnormal findings of blood chemistry; N13.30 Unspecified hydronephrosis; R23.0 Cyanosis; R00.0 Tachycardia, unspecified; Z20.822 Contact with and (suspected) exposure to COVID-19
CPT/HCPCS: 36415; 36416; 71275; 80053; 80307; 82550; 82962; 87635; 93005; 96361; 96365; 96367; 96375; 99285; 70450; 80320; 80329; 81003; 81015; 83880; 84443; 84484; 85025; 85610; 85730; 87086; 93010; J1953; J2060; J2405; J3490

== ENCOUNTER 2023-01-17 02:35 | Outpatient (CLI) | payer OTHER, SELFPAY ==
[2023-01-17 12:40] LABS: Abs Immature Grans 0.02 10^3/uL (0.0-0.06); Absolute Basophil Count 0.06 10^3/uL (0.0-0.2); Absolute Eosinophil Count 0.04 10^3/uL (0.0-0.7); Absolute Lymphocyte Count 1.01 10^3/uL (1.2-3.4); Absolute Monocyte Count 0.29 10^3/uL (0.1-0.8); Absolute Neutrophil Count 1.08 10^3/uL (1.2-6.7); Basophils % 2.4; Eosinophils % 1.6; HCT 35.7 % (36.0-46.0); HGB 12.1 g/dL (11.2-15.7); Immature Grans % 0.8; Lymphocytes % 40.4; MCH 37.2 pg (27.0-33.0); MCHC 33.9 % (32.0-36.0); MCV 110 fL (80-95); MPV 9.2 fL (8.0-11.0); Monocytes % 11.6; Neutrophils % 43.2; Nucleated RBC 0.8 % (0.0-0.3); Platelet Count 245 10^3/uL (130-400); RBC 3.25 10^6/uL (3.93-5.22); RDW-SD 57.1 fL
[2023-01-17 12:56] LABS: ALT 119 U/L (14-59); AST 60 U/L (15-37); Albumin 3.7 g/dL (3.4-5.0); Alkaline Phosphatase 61 U/L (46-116); Anion Gap 4.5 mmol/L (3-11); BUN 7 mg/dL (7-18); Bilirubin, Total 0.2 mg/dL (0.2-1.0); CO2 31.5 mmol/L (21.0-32.0); Chloride 105 mmol/L (98-107); Estimated GFR 65.71 (mL/min/1.73m2); Glucose 115 mg/dL (74-106); Potassium 4.3 mmol/L (3.5-5.1); Sodium 141 mmol/L (136-145); Total Protein 7.5 g/dL (6.4-8.2)
[2023-01-18 18:03] LABS: Cancer Ag 15-3 41 U/mL (<30)
== END 2023-01-17 02:36 | disposition home or self-care (01) ==
LOC: LBO 02:35
PROVIDERS: PCP Family Medicine; Visit Provider Internal Medicine Hematology & Oncology
DX: C50.912 Malignant neoplasm of unspecified site of left female breast (principal); C78.00 Secondary malignant neoplasm of unspecified lung; C79.51 Secondary malignant neoplasm of bone; Z17.0 Estrogen receptor positive status [ER+]
CPT/HCPCS: 36415; 80053; 86304; 85025; 86300

== ENCOUNTER 2023-02-14 03:01 | Outpatient (CLI) | payer OTHER, SELFPAY ==
[2023-02-14 12:45] LABS: Abs Immature Grans 0.02 10^3/uL (0.0-0.06); Absolute Basophil Count 0.05 10^3/uL (0.0-0.2); Absolute Eosinophil Count 0.03 10^3/uL (0.0-0.7); Absolute Lymphocyte Count 1.21 10^3/uL (1.2-3.4); Absolute Monocyte Count 0.35 10^3/uL (0.1-0.8); Absolute Neutrophil Count 0.88 10^3/uL (1.2-6.7); Eosinophils % 1.2; HCT 35.9 % (36.0-46.0); HGB 12.1 g/dL (11.2-15.7); Immature Grans % 0.8; Lymphocytes % 47.6; MCH 37.2 pg (27.0-33.0); MCHC 33.7 % (32.0-36.0); MCV 111 fL (80-95); Monocytes % 13.8; Neutrophils % 34.6; Platelet Count 211 10^3/uL (130-400); RBC 3.25 10^6/uL (3.93-5.22); RDW 13.9 % (11.7-14.6); RDW-SD 56.9 fL; WBC 2.54 10^3/uL (4.4-10.8)
[2023-02-14 13:00] LABS: ALT 103 U/L (14-59); AST 49 U/L (15-37); Albumin 3.5 g/dL (3.4-5.0); Alkaline Phosphatase 71 U/L (46-116); Anion Gap 4.7 mmol/L (3-11); BUN 8 mg/dL (7-18); Bilirubin, Total 0.2 mg/dL (0.2-1.0); CO2 31.3 mmol/L (21.0-32.0); CREATININE 1.1 mg/dL (0.55-1.02); Calcium 9.1 mg/dL (8.5-10.1); Chloride 108 mmol/L (98-107); Estimated GFR 58.61 (mL/min/1.73m2); Glucose 127 mg/dL (74-106); Potassium 4.2 mmol/L (3.5-5.1); Sodium 144 mmol/L (136-145); Total Protein 7.4 g/dL (6.4-8.2)
[2023-02-18 16:04] LABS: Cancer Ag 15-3 57 U/mL (<30)
== END 2023-02-14 03:02 | disposition home or self-care (01) ==
LOC: LBO 03:01
PROVIDERS: PCP Family Medicine; Visit Provider Internal Medicine Hematology & Oncology
DX: C50.912 Malignant neoplasm of unspecified site of left female breast (principal); C78.00 Secondary malignant neoplasm of unspecified lung; C79.51 Secondary malignant neoplasm of bone; Z17.0 Estrogen receptor positive status [ER+]
CPT/HCPCS: 36415; 80053; 86304; 85025; 86300

== ENCOUNTER 2023-02-21 09:26 | Outpatient (CLI) | payer OTHER, SELFPAY ==
[2023-02-21 09:13] LABS: Abs Immature Grans 0.02 10^3/uL (0.0-0.06); Absolute Basophil Count 0.06 10^3/uL (0.0-0.2); Absolute Eosinophil Count 0.04 10^3/uL (0.0-0.7); Absolute Lymphocyte Count 0.95 10^3/uL (1.2-3.4); Absolute Monocyte Count 0.33 10^3/uL (0.1-0.8); Absolute Neutrophil Count 1.36 10^3/uL (1.2-6.7); Basophils % 2.2; Eosinophils % 1.4; HCT 37.4 % (36.0-46.0); HGB 12.6 g/dL (11.2-15.7); Immature Grans % 0.7; Lymphocytes % 34.4; MCH 37.2 pg (27.0-33.0); MCHC 33.7 % (32.0-36.0); MCV 110 fL (80-95); MPV 9.1 fL (8.0-11.0); Neutrophils % 49.3; Nucleated RBC 1.1 % (0.0-0.3); Platelet Count 267 10^3/uL (130-400); RBC 3.39 10^6/uL (3.93-5.22); RDW 13.5 % (11.7-14.6); RDW-SD 55.6 fL; WBC 2.76 10^3/uL (4.4-10.8)
[2023-02-21 09:31] LABS: ALT 145 U/L (14-59); AST 59 U/L (15-37); Albumin 3.9 g/dL (3.4-5.0); Alkaline Phosphatase 74 U/L (46-116); Anion Gap 7.4 mmol/L (3-11); BUN 12 mg/dL (7-18); Bilirubin, Total 0.3 mg/dL (0.2-1.0); CO2 30.6 mmol/L (21.0-32.0); Calcium 9.3 mg/dL (8.5-10.1); Chloride 105 mmol/L (98-107); Estimated GFR 65.71 (mL/min/1.73m2); Glucose 111 mg/dL (74-106); Potassium 4.5 mmol/L (3.5-5.1); Sodium 143 mmol/L (136-145); Total Protein 7.8 g/dL (6.4-8.2)
[2023-02-22 17:39] LABS: Cancer Ag 15-3 68 U/mL (<30)
== END 2023-02-21 09:27 | disposition home or self-care (01) ==
LOC: LBO 09:27
PROVIDERS: PCP Family Medicine; Visit Provider Internal Medicine Hematology & Oncology
DX: C78.00 Secondary malignant neoplasm of unspecified lung (principal); C79.51 Secondary malignant neoplasm of bone; C50.912 Malignant neoplasm of unspecified site of left female breast; Z17.0 Estrogen receptor positive status [ER+]
CPT/HCPCS: 36415; 80053; 86304; 85025; 86300

== ENCOUNTER 2023-03-21 02:58 | Outpatient (CLI) | payer OTHER, SELFPAY ==
[2023-03-21 09:09] LABS: Absolute Basophil Count 0.04 10^3/uL (0.0-0.2); Absolute Eosinophil Count 0.03 10^3/uL (0.0-0.7); Absolute Monocyte Count 0.25 10^3/uL (0.1-0.8); Absolute Neutrophil Count 0.72 10^3/uL (1.2-6.7); Basophils % 2.2; Eosinophils % 1.6; HCT 37.2 % (36.0-46.0); HGB 12.6 g/dL (11.2-15.7); Lymphocytes % 43.5; MCH 36.5 pg (27.0-33.0); MCHC 33.9 % (32.0-36.0); MCV 108 fL (80-95); MPV 8.7 fL (8.0-11.0); Monocytes % 13.6; Neutrophils % 39.1; Platelet Count 183 10^3/uL (130-400); RBC 3.45 10^6/uL (3.93-5.22); RDW 13.7 % (11.7-14.6)
[2023-03-21 09:22] LABS: ALT 97 U/L (14-59); AST 59 U/L (15-37); Albumin 3.7 g/dL (3.4-5.0); Alkaline Phosphatase 67 U/L (46-116); Anion Gap 8.4 mmol/L (3-11); BUN 8 mg/dL (7-18); Bilirubin, Total 0.3 mg/dL (0.2-1.0); CO2 28.6 mmol/L (21.0-32.0); CREATININE 1.2 mg/dL (0.55-1.02); Calcium 9.2 mg/dL (8.5-10.1); Chloride 105 mmol/L (98-107); Estimated GFR 52.47 (mL/min/1.73m2); Glucose 121 mg/dL (74-106); Potassium 3.8 mmol/L (3.5-5.1); Sodium 142 mmol/L (136-145); Total Protein 7.5 g/dL (6.4-8.2)
[2023-03-21 09:49] LABS: Diff Comment Diff Reviewed; Macrocytosis 2+
[2023-03-21 09:51] LABS: WBC 1.84 10^3/uL (4.4-10.8)
[2023-03-23 10:02] LABS: Cancer Ag 15-3 102 U/mL (<30)
== END 2023-03-21 02:59 | disposition home or self-care (01) ==
LOC: LBO 02:58
PROVIDERS: PCP Family Medicine; Visit Provider Internal Medicine Hematology & Oncology
DX: C50.412 Malignant neoplasm of upper-outer quadrant of left female breast (principal); C78.00 Secondary malignant neoplasm of unspecified lung; C79.51 Secondary malignant neoplasm of bone; Z17.0 Estrogen receptor positive status [ER+]
CPT/HCPCS: 36415; 80053; 86304; 85025; 86300

== ENCOUNTER 2023-03-28 11:11 | Outpatient (CLI) | payer OTHER, SELFPAY ==
[2023-03-28 11:12] LABS: Abs Immature Grans 0.02 10^3/uL (0.0-0.06); Absolute Basophil Count 0.06 10^3/uL (0.0-0.2); Absolute Eosinophil Count 0.05 10^3/uL (0.0-0.7); Absolute Lymphocyte Count 0.86 10^3/uL (1.2-3.4); Absolute Monocyte Count 0.29 10^3/uL (0.1-0.8); Absolute Neutrophil Count 1.84 10^3/uL (1.2-6.7); Basophils % 1.9; Eosinophils % 1.6; HCT 38.4 % (36.0-46.0); HGB 12.9 g/dL (11.2-15.7); Immature Grans % 0.6; Lymphocytes % 27.6; MCH 36.1 pg (27.0-33.0); MCHC 33.6 % (32.0-36.0); MCV 108 fL (80-95); MPV 8.9 fL (8.0-11.0); Monocytes % 9.3; Nucleated RBC 0.6 % (0.0-0.3); Platelet Count 245 10^3/uL (130-400); RBC 3.57 10^6/uL (3.93-5.22); RDW 13.3 % (11.7-14.6); RDW-SD 53.9 fL; WBC 3.12 10^3/uL (4.4-10.8)
[2023-03-28 11:29] LABS: ALT 117 U/L (14-59); AST 59 U/L (15-37); Albumin 3.6 g/dL (3.4-5.0); Alkaline Phosphatase 74 U/L (46-116); Anion Gap 8.2 mmol/L (3-11); BUN 10 mg/dL (7-18); Bilirubin, Total 0.2 mg/dL (0.2-1.0); CO2 30.8 mmol/L (21.0-32.0); Calcium 9.2 mg/dL (8.5-10.1); Chloride 105 mmol/L (98-107); Diff Comment RBC Morph Reviewed; Glucose 135 mg/dL (74-106); Potassium 4.3 mmol/L (3.5-5.1); Sodium 144 mmol/L (136-145); Total Protein 7.2 g/dL (6.4-8.2)
[2023-03-28 11:30] LABS: Macrocytosis 2+; Polychromasia Present
[2023-03-29 18:00] LABS: Cancer Ag 15-3 106 U/mL (<30)
== END 2023-03-28 11:12 | disposition home or self-care (01) ==
LOC: LBO 11:12
PROVIDERS: PCP Family Medicine; Visit Provider Internal Medicine Hematology & Oncology
DX: C50.912 Malignant neoplasm of unspecified site of left female breast (principal); C78.02 Secondary malignant neoplasm of left lung; C79.51 Secondary malignant neoplasm of bone; Z17.0 Estrogen receptor positive status [ER+]
CPT/HCPCS: 36415; 80053; 86304; 85025; 86300

== ENCOUNTER 2023-05-02 04:11 | Outpatient (CLI) | payer OTHER, SELFPAY ==
[2023-05-02 12:20] LABS: Abs Immature Grans 0.01 10^3/uL (0.0-0.06); Absolute Basophil Count 0.02 10^3/uL (0.0-0.2); Absolute Eosinophil Count 0.17 10^3/uL (0.0-0.7); Absolute Lymphocyte Count 0.94 10^3/uL (1.2-3.4); Absolute Monocyte Count 0.24 10^3/uL (0.1-0.8); Absolute Neutrophil Count 1.95 10^3/uL (1.2-6.7); Basophils % 0.6; Eosinophils % 5.1; HCT 38.4 % (36.0-46.0); HGB 12.3 g/dL (11.2-15.7); Immature Grans % 0.3; Lymphocytes % 28.2; MCH 32.5 pg (27.0-33.0); MCV 101 fL (80-95); MPV 9.3 fL (8.0-11.0); Monocytes % 7.2; Neutrophils % 58.6; Platelet Count 221 10^3/uL (130-400); RBC 3.79 10^6/uL (3.93-5.22); RDW 13.7 % (11.7-14.6); RDW-SD 51.4 fL; WBC 3.33 10^3/uL (4.4-10.8)
[2023-05-02 12:36] LABS: ALT 175 U/L (14-59); AST 93 U/L (15-37); Albumin 3.1 g/dL (3.4-5.0); Alkaline Phosphatase 73 U/L (46-116); Anion Gap 7.4 mmol/L (3-11); BUN 10 mg/dL (7-18); Bilirubin, Total 0.2 mg/dL (0.2-1.0); CO2 29.6 mmol/L (21.0-32.0); CREATININE 1.1 mg/dL (0.55-1.02); Calcium 9.2 mg/dL (8.5-10.1); Chloride 102 mmol/L (98-107); Estimated GFR 58.24 (mL/min/1.73m2); Glucose 236 mg/dL (74-106); Potassium 4.1 mmol/L (3.5-5.1); Sodium 139 mmol/L (136-145); Total Protein 7.7 g/dL (6.4-8.2)
[2023-05-03 17:13] LABS: Cancer Ag 15-3 76 U/mL (<30)
== END 2023-05-02 04:12 | disposition home or self-care (01) ==
LOC: LBO 04:11
PROVIDERS: PCP Family Medicine; Visit Provider Internal Medicine Hematology & Oncology
DX: C50.912 Malignant neoplasm of unspecified site of left female breast (principal); C78.00 Secondary malignant neoplasm of unspecified lung; Z17.0 Estrogen receptor positive status [ER+]
CPT/HCPCS: 36415; 80053; 86304; 85025; 86300

== ENCOUNTER 2023-05-27 11:02 | Emergency (ER) | payer OTHER, SELFPAY ==
[2023-05-27] VITALS (10 sets, daily range): BP systolic 90–128; BP diastolic 58–90; PULSE 130–147; RESP 15–27; TEMP 37.4; O2SAT 90–96
--- NOTE | 2023-05-27 11:00 | RT.EKG_ITS ---
APPROVED REPORT Exam: Resting ECG Reason for Exam: sob Patient Location: E HR:138 bpm ECG Measurements Heart Rate 138 AXIS UT 130 P 68 QRSd 70 QRS 44 QT 300 T 75 QTc 454 Conclusion Sinus tachycardia...rate> 99 Nonspecific T abnrm, anterolateral leads... Appropriate intervals. No ST segment or T wave abnormalities to suggest occlusive SC
--- NOTE | 2023-05-27 11:30 | DI.CT_ITS ---
Exam(s) CT CHEST PE CTA EXAM: CT CHEST PE CTA CLINICAL HISTORY: tachycardiac SOB active cancer. TECHNIQUE: Imaging Protocol: Axial CT angiography was performed with multi-slice acquisition and mu lti-planar reconstructions as well as axial, coronal and sagittal MIP reconstructions. CONTRAST MATERIAL: Intravenous: Omnipaque 350 Contrast volume:100 ml COMPARISON: CT CT CHEST PE CTA from 01/02/2023 FINDINGS: Pulmonary Arteries: No evidence of filling defect to suggest pulmonary emboli. Tracheobronchial tree: Patent where visualized. Mediastinum and Janna: No dominant adenopathy or fluid collection. Pulmonary parenchyma: Consolidation right lower lobe adjacent to the effusion. Marked interval incre ase in size of anterior left upper lobe mass, now measuring 2.3 by 2.7 cm. A few other tiny left up per lobe nodules are noted. Underlying emphysematous changes. Increased interlobular septal thickenin g on the right could indicate lymphangitic spread of tumor. These findings appear new prior. Pleura: New partially loculated appearing small to moderate-sized right pleural effusion. Abnormal t hickening along the minor fissure. Some thickening along right major fissure. Heart: The heart is not dilated. No coronary artery calcifications are seen. Aorta: Thoracic aorta non-dilated. No aneurysm. No dissection. Upper abdomen: Fatty liver. Status post cholecystectomy. Bones: Old rib fractures. Stable sclerotic metastases in the spine and sternum. Stable thoracic comp ression fractures. Tubes, Catheters, and Lines: None IMPRESSION: No evidence of pulmonary embolism. New loculated pleural effusions. Abnormal nodular thickening along the right major and minor fissure as well as interstitial thickening. Increased size of the mass left upper lobe. Findings called to Dr. Roberts of the emergency department RADIATION DOSE DELIVERED: 573.17mGy.cm Total DLP DATA REPOSITORY: All CT scans at this facility are submitted to the National Radiology Data Registry (NRDR) Dose Index Registry (DIR) with the [employer] (ACR). RADIATION OPTIMIZATION: All CT scans at this facility use at least one of these dose optimization te chniques: automated exposure control; mA and/or kV adjustment per patient size (includes targeted exa ms where dose is matched to clinical indication); or iterative reconstruction.
[2023-05-27 12:22] LABS: Abs Immature Grans 0.03 10^3/uL (0.0-0.06); Absolute Basophil Count 0.02 10^3/uL (0.0-0.2); Absolute Eosinophil Count 0.07 10^3/uL (0.0-0.7); Absolute Lymphocyte Count 0.93 10^3/uL (1.2-3.4); Absolute Monocyte Count 0.33 10^3/uL (0.1-0.8); Absolute Neutrophil Count 4.36 10^3/uL (1.2-6.7); Basophils % 0.3; Eosinophils % 1.2; HCT 36.3 % (36.0-46.0); HGB 11.6 g/dL (11.2-15.7); Immature Grans % 0.5; Lymphocytes % 16.2; MCH 29.7 pg (27.0-33.0); MCV 93 fL (80-95); MPV 9.2 fL (8.0-11.0); Monocytes % 5.7; Neutrophils % 76.1; Nucleated RBC 0.3 % (0.0-0.3); Platelet Count 339 10^3/uL (130-400); RDW 16.2 % (11.7-14.6); RDW-SD 54.9 fL; WBC 5.74 10^3/uL (4.4-10.8)
[2023-05-27] MEDS: Normal Saline - Diluent 50 ML VIAL IJ (12:39)
[2023-05-27] MEDS: Omnipaque 350 MG/ML 500 ML BTL-Imaging package IJ (12:39)
[2023-05-27] MEDS: Normal Saline Flush 10 ML SYR IVP (12:41)
[2023-05-27 12:51] LABS: ALT 87 U/L (14-59); AST 56 U/L (15-37); Albumin 2.5 g/dL (3.4-5.0); Alkaline Phosphatase 87 U/L (46-116); Anion Gap 11.1 mmol/L (3-11); BUN 6 mg/dL (7-18); Bilirubin, Total 0.2 mg/dL (0.2-1.0); CO2 28.9 mmol/L (21.0-32.0); Calcium 9.1 mg/dL (8.5-10.1); Chloride 98 mmol/L (98-107); Glucose 182 mg/dL (74-106); Magnesium 2.2 mg/dL (1.8-2.4); NT-proBNP 243 pg/mL (<300); Potassium 3.8 mmol/L (3.5-5.1); Sodium 138 mmol/L (136-145); Total Protein 8.8 g/dL (6.4-8.2); Troponin I < 50 ng/L (<or=60)
[2023-05-27] MEDS: Ondansetron 4 MG/2 ML VIAL IVP (12:59)
--- NOTE | 2023-05-27 13:06 | NUR.NOTE ---
Nursing Note: Pt returned from CT PE feeling nauseated, states it happens often when she receives contrast. No other signs of reaction. Dr. Armando jarquin ordered and given with relief.
--- NOTE | 2023-05-27 13:12 | ED.GENADUL_ITS ---
Discharge Plan Disposition Patient Disposition: Home Condition: Stable Discharge Details Clinical Impression: Pleural effusion Primary Care Provider: Azucena Ascencio ED Provider: Roxy Roberts Home Meds and New Rx's Prescriptions: No Action acetaminophen 500 mg capsule 1,000 mg PO TID PRN ibuprofen [Motrin IB] 200 mg tablet 600 mg PO TID Patient Comments: pt states not taking 05/27/23 albuterol sulfate 90 mcg/actuation aerosol powdr breath activated 1 - 2 inh IH Q4H PRN (Reason: bronchospasm) Qty: 2 11RF enoxaparin [Lovenox] 80 mg/0.8 mL syringe 80 mg subcut Q12H Patient Comments: pt states not taking 05/27/23 levetiracetam [Keppra] 500 mg tablet 500 mg PO BID Qty: 60 3RF budesonide-formoterol [Symbicort] 80-4.5 mcg/actuation Hfa Aerosol Inhaler 2 puff inhalation BID Qty: 10.2 0RF everolimus (antineoplastic) 10 mg Tablet 10 mg PO DAILY Eliquis 5 mg tablet 5 mg PO DAILY Patient Comments: TAKE 1 TABLET BY MOUTH 2 TIMES DAILY Discharge Instructions Instructions: Pleural Effusion (ED) Additional Instructions: Follow up with your oncologist on . Return to the emergency department immediately if your symptoms worsen, you have difficulty breathing at rest, you have chest pain or feel like you are going to pass out, or if you have any other concerns. Medical Decision Making 58yo F with breast cancer on oral therapy presenting for shortness of breath for 4 days, worse with exertion. No fevers or cough to suggest pneumonia or other infectious process. Tachycardiac on arrival to high 130's (patient states HR is usually 120's), acceptable blood pressure at 90/80, mildly tachypneic to low 20's. O2 Sat 90-92%; placed on 2L NC with improvement. Concern for pulmonary embolism, ACS, or primary pulmonary process. Low suspicion for sepsis on initial evaluation. EKG sinus tachycardia with no sequela of occlusive AL. Labs reviewed as below, CBC & CMP with no actionable abnormalities, normal BNP, troponin negative x 2. CT PE independently reviewed, no large pulmonary embolism on my view; agree with radiology read below; loculated pleural effusions and left upper lobe mass. On reassessment patient well appearing, RR 20, O2 sat 96% on room air. No dyspnea at rest. Discussed options with patient including therapeutic thoracentesis; she does not feel this aligns with her current goals of care and would prefer to discuss it further with her oncologist later this week. Given her reassuring respiratory status at rest this is not unreasonable and she certainly has capacity to make her own decisions. Her heart rate remains in the 130's; this may be due to her progressively worsening pulmonary disease and borderline oxygen saturations however it does not appear to be a large change from her baseline. No leukocytosis or infectious symptoms to suggest sepsis, reassuring cardiac workup. I am concerned about her heart rate and discussed this with her, but remaining in the hospital right now is not compatible with Ms. Dsouza's current goals of care as discussed with me today and her strong preference is to discharge home and continue outpatient followup with her oncologist which I believe is a reasonable course of action. Ambulated independently safely in the ED. Discharged home; discharge instructions including return precautions were reviewed with patient who verbalized understanding. All questions were answered and they are in full agreement with the plan. Imaging Data Radiologic Study: Imaging: CT Scan Radiologist's impression: IMPRESSION: No evidence of pulmonary embolism. New loculated pleural effusions. Abnormal nodular thickening along the right major and minor fissure as well as interstitial thickening. Increased size of the mass left upper lobe. Lab Data Lab results reviewed: Yes I reviewed the patient's lab results. Labs: Laboratory Tests Range/Units 05/27/23 05/27/23 05/27/23 12:14 12:14 12:14 WBC (4.4-10.8) 10^3/uL 5.74 RBC (3.93-5.22) 10^6/uL 3.90 L Hgb (11.2-15.7) g/dL 11.6 Hct (36.0-46.0) % 36.3 MCV (80-95) fL 93 MCH (27.0-33.0) pg 29.7 MCHC (32.0-36.0) % 32.0 RDW (11.7-14.6) % 16.2 H Plt Count (130-400) 10^3/uL 339 MPV (8.0-11.0) fL 9.2 Immature Gran % 0.5 Neutrophils % 76.1 Lymphocytes % 16.2 Monocytes % 5.7 Eosinophils % 1.2 Basophils % 0.3 Nucleated RBC % (0.0-0.3) % 0.3 Absolute Neutrophils (1.2-6.7) 10^3/uL 4.36 Absolute Lymphocytes (1.2-3.4) 10^3/uL 0.93 L Absolute Monocytes (0.1-0.8) 10^3/uL 0.33 Absolute Eosinophils (0.0-0.7) 10^3/uL 0.07 Absolute Basophils (0.0-0.2) 10^3/uL 0.02 Sodium (136-145) mmol/L 138 Potassium (3.5-5.1) mmol/L 3.8 Chloride (98-107) mmol/L 98 Carbon Dioxide (21.0-32.0) mmol/L 28.9 Anion Gap (3-11) mmol/L 11.1 H BUN (7-18) mg/dL 6 L Creatinine (0.55-1.02) mg/dL 1.0 Est GFR (CKD-EPI 2020) (mL/min/1.73m2) 65.30 Glucose (74-106) mg/dL 182 H Calcium (8.5-10.1) mg/dL 9.1 Magnesium (1.8-2.4) mg/dL 2.2 Total Bilirubin (0.2-1.0) mg/dL 0.2 AST (15-37) U/L 56 H ALT (14-59) U/L 87 H Alkaline Phosphatase (46-116) U/L 87 Troponin I (<or=60) ng/L < 50 NT-Pro-B Natriuret Pep (<300) pg/mL 243 Cancelled Total Protein (6.4-8.2) g/dL 8.8 H Albumin (3.4-5.0) g/dL 2.5 L HPI General Date/Time Provider Initiated Documentation: 05/27/23 11:40 . Limitations to Documentation: no limitations . Information obtained by: patient . HPI Narrative: 58yo F with breast cancer on oral therapy presenting for shortness of breath. Symptoms started 4 days ago and have been persistent. Significantly worse with exertion, remains present but mild at rest. States her usual heart rate is around 120 (wears a fitbit), not sure why this is; this morning has been higher 130's No pleuritic pain or new LE edema, no palpitations, no chest pain/pressure. No fevers or chills. She is otherwise in her usual state of health. Related Data Home Medications Medication Instructions Recorded Confirmed acetaminophen 500 mg capsule 1,000 mg PO TID PRN 05/14/18 05/27/23 ibuprofen 200 mg tablet (Motrin IB) 600 mg PO TID 05/14/18 01/11/23 albuterol sulfate 90 mcg/actuation 1 - 2 inh inhalation Q4H PRN 09/27/21 05/27/23 breath activated powder inhaler bronchospasm #2 ea budesonide-formoterol HFA 80 2 puff inhalation BID #10.2 grams 03/19/22 05/27/23 mcg-4.5 mcg/actuation aerosol inhaler (Symbicort) enoxaparin 80 mg/0.8 mL 80 mg subcut Q12H 01/08/23 01/11/23 subcutaneous syringe (Lovenox) levetiracetam 500 mg tablet 500 mg PO BID #60 tabs 01/31/23 05/27/23 (Keppra) apixaban 5 mg tablet (Eliquis) 5 mg PO DAILY 05/27/23 05/27/23 everolimus (antineoplastic) 10 mg 10 mg PO DAILY 05/27/23 05/27/23 tablet Previous Rx's Medication Instructions Recorded albuterol sulfate 90 mcg/actuation 1 - 2 inh inhalation Q4H PRN 09/27/21 breath activated powder inhaler bronchospasm #2 ea budesonide-formoterol HFA 80 2 puff inhalation BID #10.2 grams 03/19/22 mcg-4.5 mcg/actuation aerosol inhaler (Symbicort) levetiracetam 500 mg tablet 500 mg PO BID #60 tabs 01/31/23 (Keppra) Allergies Allergy/AdvReac Type Severity Reaction Status Date / Time codeine AdvReac Mild N/V Verified 05/27/23 12:27 oxycodone AdvReac Mild N/V Verified 05/27/23 12:27 General Stated Complaint: SOB ADAM: 2 Review of Systems Narrative: see HPI PFSH All Active Problems (Updated 05/27/23 @ 14:21 by Roxy Roberts MD) Back pain (Acute) History of left breast cancer (Acute ~2015) 10/12/14 [facility] bx: invasive ductal ca LEFT breast; recurrent with pulmonary mets, bone mets, adenopathy with left kidney obstruction. Pulmonary lesion (Acute) Lytic bone lesions on xray (Acute) Hydronephrosis, left (Acute) Pleural effusion (Acute) Medical History Endometriosis (09/16/14) Fracture of left humerus (09/16/14) Sciatica of right side (09/16/14) Surgical History S/P breast lumpectomy Status post cholecystectomy (09/16/14) Family History Mother Emphysema/COPD Father Heart disease Sister Neoplasm MELANOMA Brother No problems noted. Grandfather No problems noted. Grandfather No problems noted. Grandmother No problems noted. Grandmother No problems noted. Social History Smoking/Tobacco Use Status: Former Tobacco Use Second Hand Exposure: Yes Smoking risk assessment performed?: Yes Alcohol Intake: current Alcohol Intake frequency: other Drug use: Never Substance use type: does not use Household members: spouse Number of Children: 2 number of grandchildren: 2 current occupation: works in kitchen at [employer] Pets and animals: Yes Pets and animals: cat(s) and dog(s) What type of physical activity do you participate in: none Do you feel safe at home: Yes Do you feel safe in your relationship?: Yes Exam Narrative Exam Narrative: General: Alert, in no acute distress. Head: Normocephalic, atraumatic Neck: Trachea midline, Neck supple. ENT: MMM. No oropharygeal lesions or exudate. Cardiac: Tachycardic, regular, no murmurs appreciated Resp: No respiratory distress. CTAB. Abd: Soft, non-distended, nontender : No suprapubic tenderness. Extremities: No deformities. Neurologic: GCS 15. Moves all extremities freely against gravity Course Vital Signs Vital signs: Vital Signs Temperature 37.4 C 05/27/23 11:10 Pulse 139 H 05/27/23 11:10 Respiratory Rate 24 05/27/23 11:10 Blood Pressure 90/70 L 05/27/23 11:10 Pulse Oximetry 91 L 05/27/23 11:10 Temperature 37.4 C 05/27/23 11:10 Temperature Source Skin 05/27/23 11:10 Pulse 139 H 05/27/23 11:10 Pulse 131 H 05/27/23 12:20 Respiratory Rate 20 05/27/23 12:20 Respiratory Effort Short of Breath 05/27/23 12:02 Blood Pressure 90/70 L 05/27/23 11:10 Blood Pressure Position Sitting 05/27/23 11:10 Pulse Oximetry 94 05/27/23 12:20 Oxygen Delivery Method Room Air 05/27/23 11:10 Oxygen Flow Rate 0 05/27/23 11:10 Pain Level 0 05/27/23 11:10 Lab/Test Results Lab/Test Results: Laboratory Tests Range/Units 05/27/23 05/27/23 05/27/23 12:14 12:14 12:14 WBC (4.4-10.8) 10^3/uL 5.74 RBC (3.93-5.22) 10^6/uL 3.90 L Hgb (11.2-15.7) g/dL 11.6 Hct (36.0-46.0) % 36.3 MCV (80-95) fL 93 MCH (27.0-33.0) pg 29.7 MCHC (32.0-36.0) % 32.0 RDW (11.7-14.6) % 16.2 H Plt Count (130-400) 10^3/uL 339 MPV (8.0-11.0) fL 9.2 Immature Gran % 0.5 Neutrophils % 76.1 Lymphocytes % 16.2 Monocytes % 5.7 Eosinophils % 1.2 Basophils % 0.3 Nucleated RBC % (0.0-0.3) % 0.3 Absolute Neutrophils (1.2-6.7) 10^3/uL 4.36 Absolute Lymphocytes (1.2-3.4) 10^3/uL 0.93 L Absolute Monocytes (0.1-0.8) 10^3/uL 0.33 Absolute Eosinophils (0.0-0.7) 10^3/uL 0.07 Absolute Basophils (0.0-0.2) 10^3/uL 0.02 Sodium (136-145) mmol/L 138 Potassium (3.5-5.1) mmol/L 3.8 Chloride (98-107) mmol/L 98 Carbon Dioxide (21.0-32.0) mmol/L 28.9 Anion Gap (3-11) mmol/L 11.1 H BUN (7-18) mg/dL 6 L Creatinine (0.55-1.02) mg/dL 1.0 Est GFR (CKD-EPI 2020) (mL/min/1.73m2) 65.30 Glucose (74-106) mg/dL 182 H Calcium (8.5-10.1) mg/dL 9.1 Magnesium (1.8-2.4) mg/dL 2.2 Total Bilirubin (0.2-1.0) mg/dL 0.2 AST (15-37) U/L 56 H ALT (14-59) U/L 87 H Alkaline Phosphatase (46-116) U/L 87 Troponin I (<or=60) ng/L < 50 NT-Pro-B Natriuret Pep (<300) pg/mL 243 Cancelled Total Protein (6.4-8.2) g/dL 8.8 H Albumin (3.4-5.0) g/dL 2.5 L
== END 2023-05-27 14:39 | disposition home or self-care (01) ==
PROVIDERS: Emergency Provider Student in an Organized Health Care Education/Training Program; PCP Family Medicine
DX: C50.919 Malignant neoplasm of unspecified site of unspecified female breast; R00.0 Tachycardia, unspecified; J90 Pleural effusion, not elsewhere classified; Z87.891 Personal history of nicotine dependence
CPT/HCPCS: 71275; 80053; 93005; 96374; 99285; 83735; 83880; 84484; 85025; 93010; 99284; J2405

== ENCOUNTER 2023-07-04 04:01 | Outpatient (CLI) | payer OTHER, SELFPAY ==
[2023-07-04 10:25] LABS: Abs Immature Grans 0.05 10^3/uL (0.0-0.06); Absolute Basophil Count 0.05 10^3/uL (0.0-0.2); Absolute Eosinophil Count 0.62 10^3/uL (0.0-0.7); Absolute Lymphocyte Count 0.93 10^3/uL (1.2-3.4); Absolute Monocyte Count 0.29 10^3/uL (0.1-0.8); Absolute Neutrophil Count 3.12 10^3/uL (1.2-6.7); Eosinophils % 12.3; HGB 11.7 g/dL (11.2-15.7); Lymphocytes % 18.4; MCH 26.7 pg (27.0-33.0); MCV 89 fL (80-95); MPV 8.6 fL (8.0-11.0); Monocytes % 5.7; Neutrophils % 61.6; Nucleated RBC 0.6 % (0.0-0.3); Platelet Count 331 10^3/uL (130-400); RBC 4.39 10^6/uL (3.93-5.22); RDW-SD 58.1 fL; WBC 5.06 10^3/uL (4.4-10.8)
[2023-07-04 10:40] LABS: ALT 100 U/L (14-59); AST 143 U/L (15-37); Albumin 2.9 g/dL (3.4-5.0); Alkaline Phosphatase 73 U/L (46-116); Anion Gap 8.5 mmol/L (3-11); BUN 9 mg/dL (7-18); Bilirubin, Total 0.2 mg/dL (0.2-1.0); CO2 28.5 mmol/L (21.0-32.0); CREATININE 1.1 mg/dL (0.55-1.02); Calcium 8.6 mg/dL (8.5-10.1); Chloride 104 mmol/L (98-107); Estimated GFR 58.24 (mL/min/1.73m2); Glucose 179 mg/dL (74-106); Potassium 3.9 mmol/L (3.5-5.1); Sodium 141 mmol/L (136-145); Total Protein 7.6 g/dL (6.4-8.2)
[2023-07-05 18:48] LABS: Cancer Ag 15-3 37 U/mL (<30)
== END 2023-07-04 04:02 | disposition home or self-care (01) ==
LOC: LBO 04:02
PROVIDERS: PCP Family Medicine; Visit Provider Internal Medicine Hematology & Oncology
DX: C50.912 Malignant neoplasm of unspecified site of left female breast (principal); C79.51 Secondary malignant neoplasm of bone
CPT/HCPCS: 36415; 80053; 86304; 85025; 86300

== ENCOUNTER 2023-07-22 20:58 | Outpatient (CLI) | payer OTHER, SELFPAY ==
[2023-07-22 10:52] LABS: Abs Immature Grans 0.02 10^3/uL (0.0-0.06); Absolute Basophil Count 0.03 10^3/uL (0.0-0.2); Absolute Eosinophil Count 0.27 10^3/uL (0.0-0.7); Absolute Lymphocyte Count 1.13 10^3/uL (1.2-3.4); Absolute Monocyte Count 0.31 10^3/uL (0.1-0.8); Absolute Neutrophil Count 2.31 10^3/uL (1.2-6.7); Basophils % 0.7; Eosinophils % 6.6; HCT 39.7 % (36.0-46.0); HGB 12.1 g/dL (11.2-15.7); Immature Grans % 0.5; Lymphocytes % 27.8; MCH 26.9 pg (27.0-33.0); MCHC 30.5 % (32.0-36.0); MCV 88 fL (80-95); MPV 9.6 fL (8.0-11.0); Monocytes % 7.6; Neutrophils % 56.8; Platelet Count 258 10^3/uL (130-400); RBC 4.49 10^6/uL (3.93-5.22); RDW 18.7 % (11.7-14.6); WBC 4.07 10^3/uL (4.4-10.8)
[2023-07-22 11:37] LABS: ALT 58 U/L (14-59); AST 83 U/L (15-37); Albumin 3.2 g/dL (3.4-5.0); Alkaline Phosphatase 65 U/L (46-116); Anion Gap 9.5 mmol/L (3-11); BUN 6 mg/dL (7-18); Bilirubin, Total 0.3 mg/dL (0.2-1.0); CO2 28.5 mmol/L (21.0-32.0); CREATININE 1.2 mg/dL (0.55-1.02); Calcium 9.2 mg/dL (8.5-10.1); Chloride 104 mmol/L (98-107); Estimated GFR 52.47 (mL/min/1.73m2); Glucose 194 mg/dL (74-106); Sodium 142 mmol/L (136-145); Total Protein 7.6 g/dL (6.4-8.2)
[2023-07-25 22:18] LABS: Cancer Ag 15-3 45 U/mL (<30)
== END 2023-07-22 20:59 | disposition home or self-care (01) ==
LOC: LBO 20:59
PROVIDERS: PCP Family Medicine; Visit Provider Internal Medicine Hematology & Oncology
DX: C50.912 Malignant neoplasm of unspecified site of left female breast (principal); C79.51 Secondary malignant neoplasm of bone
CPT/HCPCS: 36415; 80053; 86304; 85025; 86300

== ENCOUNTER 2023-08-08 14:20 | Outpatient (CLI) | payer OTHER, SELFPAY ==
[2023-08-08 12:03] LABS: Abs Immature Grans 0.01 10^3/uL (0.0-0.06); Absolute Basophil Count 0.03 10^3/uL (0.0-0.2); Absolute Eosinophil Count 0.12 10^3/uL (0.0-0.7); Absolute Lymphocyte Count 0.83 10^3/uL (1.2-3.4); Absolute Monocyte Count 0.29 10^3/uL (0.1-0.8); Absolute Neutrophil Count 3.67 10^3/uL (1.2-6.7); Basophils % 0.6; Eosinophils % 2.4; HCT 43.6 % (36.0-46.0); HGB 13.3 g/dL (11.2-15.7); Immature Grans % 0.2; Lymphocytes % 16.8; MCH 26.6 pg (27.0-33.0); MCHC 30.5 % (32.0-36.0); MCV 87 fL (80-95); MPV 8.8 fL (8.0-11.0); Monocytes % 5.9; Neutrophils % 74.1; Platelet Count 275 10^3/uL (130-400); RDW 18.3 % (11.7-14.6); RDW-SD 58.2 fL; WBC 4.95 10^3/uL (4.4-10.8)
[2023-08-08 12:20] LABS: ALT 69 U/L (14-59); AST 149 U/L (15-37); Albumin 3.5 g/dL (3.4-5.0); Alkaline Phosphatase 66 U/L (46-116); Anion Gap 8.7 mmol/L (3-11); BUN 5 mg/dL (7-18); Bilirubin, Total 0.3 mg/dL (0.2-1.0); CO2 29.3 mmol/L (21.0-32.0); CREATININE 1.1 mg/dL (0.55-1.02); Calcium 9.5 mg/dL (8.5-10.1); Chloride 103 mmol/L (98-107); Estimated GFR 58.24 (mL/min/1.73m2); Glucose 147 mg/dL (74-106); Potassium 4.3 mmol/L (3.5-5.1); Sodium 141 mmol/L (136-145)
[2023-08-10 09:53] LABS: Cancer Ag 15-3 59 U/mL (<30)
== END 2023-08-08 14:21 | disposition home or self-care (01) ==
LOC: LBO 14:21
PROVIDERS: PCP Family Medicine; Visit Provider Internal Medicine Hematology & Oncology
DX: C50.912 Malignant neoplasm of unspecified site of left female breast (principal); C79.51 Secondary malignant neoplasm of bone
CPT/HCPCS: 36415; 80053; 86304; 85025; 86300

== ENCOUNTER 2023-08-22 02:08 | Outpatient (CLI) | payer OTHER, SELFPAY ==
[2023-08-22 12:40] LABS: Abs Immature Grans 0.01 10^3/uL (0.0-0.06); Absolute Basophil Count 0.04 10^3/uL (0.0-0.2); Absolute Eosinophil Count 0.05 10^3/uL (0.0-0.7); Absolute Lymphocyte Count 0.98 10^3/uL (1.2-3.4); Absolute Monocyte Count 0.28 10^3/uL (0.1-0.8); Absolute Neutrophil Count 4.05 10^3/uL (1.2-6.7); Basophils % 0.7; Eosinophils % 0.9; HCT 46.5 % (36.0-46.0); HGB 14.4 g/dL (11.2-15.7); Immature Grans % 0.2; Lymphocytes % 18.1; MCH 26.5 pg (27.0-33.0); MCV 86 fL (80-95); MPV 9.2 fL (8.0-11.0); Monocytes % 5.2; Neutrophils % 74.9; Platelet Count 228 10^3/uL (130-400); RBC 5.43 10^6/uL (3.93-5.22); RDW 17.3 % (11.7-14.6); RDW-SD 54.4 fL; WBC 5.41 10^3/uL (4.4-10.8)
[2023-08-22 12:54] LABS: ALT 87 U/L (14-59); AST 120 U/L (15-37); Albumin 3.4 g/dL (3.4-5.0); Alkaline Phosphatase 74 U/L (46-116); Anion Gap 7.5 mmol/L (3-11); BUN 7 mg/dL (7-18); Bilirubin, Total 0.4 mg/dL (0.2-1.0); CO2 30.5 mmol/L (21.0-32.0); CREATININE 1.3 mg/dL (0.55-1.02); Calcium 9.1 mg/dL (8.5-10.1); Chloride 101 mmol/L (98-107); Estimated GFR 47.66 (mL/min/1.73m2); Glucose 148 mg/dL (74-106); Potassium 3.9 mmol/L (3.5-5.1); Sodium 139 mmol/L (136-145); Total Protein 7.9 g/dL (6.4-8.2)
[2023-08-24 09:37] LABS: Cancer Ag 15-3 70 U/mL (<30)
== END 2023-08-22 02:09 | disposition home or self-care (01) ==
LOC: LBO 02:08
PROVIDERS: PCP Family Medicine; Visit Provider Internal Medicine Hematology & Oncology
DX: C50.912 Malignant neoplasm of unspecified site of left female breast (principal); Z79.51 Long term (current) use of inhaled steroids
CPT/HCPCS: 36415; 80053; 86304; 85025; 86300